=== PATIENT | male | born 1940 | race Caucasian/White ===

== ENCOUNTER 2020-02-03 10:50 | Outpatient (CLI) | payer MEDICARE, SELFPAY ==
[2020-02-03 12:30] LABS: Hemoglobin A1C 5.1 % (<5.7)
[2020-02-03 14:42] LABS: Thyroid Stimulating Hormone Reflex 0.663 uIU/mL (0.465-4.68)
[2020-02-08 09:32] LABS: Testosterone Total 490 ng/dL (250-1100)
== END 2020-02-03 10:51 | disposition home or self-care (01) ==
DX: R53.83 Other fatigue (principal); E03.9 Hypothyroidism, unspecified; R73.09 Other abnormal glucose
CPT/HCPCS: 36415; 83036; 84403; 84443

== ENCOUNTER 2020-03-20 09:43 | Outpatient (CLI) | payer MEDICARE, SELFPAY ==
[2020-03-20 10:55] LABS: Basophils Percent Auto 0.4 % (0.2-1.2); Eosinophils Absolute Auto 0.1 K/mm3 (0-0.3); Eosinophils Percent Auto 2.6 % (0-4.4); Hemoglobin 11.7 g/dL (14.0-18.0); Immature Granulocyte Absolute 0.02 K/mm3 (0.00-0.031); Immature Granulocyte Percent A 0.4 % (0-0.5); Lymphocytes Absolute Auto 1.54 K/mm3 (0.9-3.2); Lymphocytes Percent Auto 28.1 % (18.3-44.2); Mean Corpuscular HGB Conc 34.4 g/dl (32-36); Mean Corpuscular Hemoglobin 36.8 pg (26-34); Mean Corpuscular Volume 106.9 fl (80-100); Monocytes Absolute Auto 0.5 K/mm3 (0.1-0.6); Monocytes Percent Auto 8.9 % (2.6-8.5); Neutrophils Absolute Auto 3.3 K/mm3 (1.3-6.7); Neutrophils Percent Auto 59.6 % (45.5-73.1); Platelet Count Result 145 k/mm3 (150-375); Red Blood Count 3.18 M/mm3 (4.6-6.20); Red Cell Distribution Width 11.9 % (11.5-14.5); White Blood Count 5.5 K/mm3 (4.5-10.0)
[2020-03-20 11:11] LABS: Alanine Aminotransferase 13 U/L (4-50); Albumin Level 3.8 g/dL (3.5-5.1); Alkaline Phosphatase 52 U/L (38-126); Anion Gap 7 mmol/L (8-16); Aspartate Amino Transferase 22 U/L (17-59); Bilirubin,Total 0.8 mg/dL (0.2-1.3); Blood Urea Nitrogen 13 mg/dL (9-20); Carbon Dioxide 30 mmol/L (22-30); Chloride 101 mmol/L (98-107); Cholesterol 99 mg/dL (0-200); Estimated Glomerular Filt Rate > 60; Glucose 92 mg/dL (75-110); HDL Direct 41 mg/dL; Potassium 4.3 mmol/L (3.4-5.0); Sodium 138 mmol/L (137-145); Triglycerides 59 mg/dL (<150)
[2020-03-20 11:22] LABS: LDL Cholesterol Direct 48 mg/dL
== END 2020-03-20 09:44 | disposition home or self-care (01) ==
LOC: ANHLAB 09:49
DX: I10 Essential (primary) hypertension (principal)
CPT/HCPCS: 36415; 80053; 80061; 85025

== ENCOUNTER 2020-04-19 11:12 | Outpatient (CLI) | payer MEDICARE, SELFPAY ==
[2020-04-19 12:42] LABS: Free T4 Free Thyroxine 1.47 ng/mL (0.78-2.19)
== END 2020-04-19 11:13 | disposition home or self-care (01) ==
LOC: ANHLAB 11:16
PROVIDERS: Visit Provider Internal Medicine Endocrinology, Diabetes & Metabolism
DX: E89.0 Postprocedural hypothyroidism (principal)
CPT/HCPCS: 36415; 84439; 84443; 84481; 85025

== ENCOUNTER 2020-04-19 11:17 | Outpatient (CLI) | payer MEDICARE, SELFPAY ==
[2020-04-19 11:50] LABS: Basophils Percent Auto 0.4 % (0.2-1.2); Eosinophils Absolute Auto 0.1 K/mm3 (0-0.3); Eosinophils Percent Auto 1.5 % (0-4.4); Hematocrit 38.3 % (42.0-52.0); Hemoglobin 12.8 g/dL (14.0-18.0); Immature Granulocyte Absolute 0.01 K/mm3 (0.00-0.031); Immature Granulocyte Percent A 0.2 % (0-0.5); Lymphocytes Percent Auto 29.9 % (18.3-44.2); Mean Corpuscular HGB Conc 33.4 g/dl (32-36); Mean Corpuscular Hemoglobin 36.1 pg (26-34); Mean Corpuscular Volume 107.9 fl (80-100); Mean Platelet Volume 8.5 fl (7.4-10.4); Monocytes Absolute Auto 0.6 K/mm3 (0.1-0.6); Monocytes Percent Auto 12.4 % (2.6-8.5); Neutrophils Absolute Auto 2.6 K/mm3 (1.3-6.7); Neutrophils Percent Auto 55.6 % (45.5-73.1); Platelet Count Result 139 k/mm3 (150-375); Red Blood Count 3.55 M/mm3 (4.6-6.20); Red Cell Distribution Width 12.5 % (11.5-14.5); White Blood Count 4.7 K/mm3 (4.5-10.0)
== END 2020-04-19 11:18 | disposition home or self-care (01) ==
LOC: ANHLAB 11:21
DX: D75.89 Other specified diseases of blood and blood-forming organs (principal)
CPT/HCPCS: 36415; 85025

== ENCOUNTER 2020-09-25 10:27 | Outpatient (CLI) | payer MEDICARE, SELFPAY ==
[2020-09-25 12:06] LABS: Free T4 Free Thyroxine 1.15 ng/mL (0.78-2.19)
[2020-09-29 06:11] LABS: Thyroglobulin <0.1 ng/mL (2.8-40.9); Thyroglobulin Antibodies <1 IU/mL (<=1)
[2020-09-29 07:59] LABS: Triiodothyronine T3 Free 2.6 pg/mL (2.3-4.2)
== END 2020-09-25 10:28 | disposition home or self-care (01) ==
DX: E89.0 Postprocedural hypothyroidism (principal)
CPT/HCPCS: 36415; 84432; 84439; 84443; 84481; 86800

== ENCOUNTER 2020-10-31 10:11 | Outpatient (CLI) | payer MEDICARE, SELFPAY ==
[2020-10-31 12:04] LABS: Hepatitis C Virus Antibody Negative (Negative)
== END 2020-10-31 10:12 | disposition home or self-care (01) ==
DX: Z11.59 Encounter for screening for other viral diseases (principal)
CPT/HCPCS: 36415; 86803

== ENCOUNTER 2020-11-12 15:43 | Outpatient (CLI) | payer MEDICARE, SELFPAY ==
[2020-11-12 16:26] LABS: Alanine Aminotransferase 12 U/L (4-50); Albumin Level 3.9 g/dL (3.5-5.1); Alkaline Phosphatase 51 U/L (38-126); Anion Gap 10 mmol/L (8-16); Aspartate Amino Transferase 24 U/L (17-59); Blood Urea Nitrogen 12 mg/dL (9-20); Calcium 9.1 mg/dL (8.4-10.2); Carbon Dioxide 25 mmol/L (22-30); Chloride 102 mmol/L (98-107); Estimated Glomerular Filt Rate > 60; Glucose 93 mg/dL (75-110); Potassium 4.1 mmol/L (3.4-5.0); Sodium 137 mmol/L (137-145)
[2020-11-12 16:57] LABS: Thyroid Stimulating Hormone 0.163 uIU/mL (0.465-4.680)
[2020-11-12 17:16] LABS: Free T4 Free Thyroxine 1.61 ng/mL (0.78-2.19)
[2020-11-14 02:33] LABS: Thyroglobulin <0.1 ng/mL (2.8-40.9); Thyroglobulin Antibodies <1 IU/mL (<=1)
== END 2020-11-12 15:44 | disposition home or self-care (01) ==
PROVIDERS: Visit Provider Internal Medicine Endocrinology, Diabetes & Metabolism
DX: E89.0 Postprocedural hypothyroidism (principal)
CPT/HCPCS: 36415; 80053; 84432; 84439; 84443; 84481; 86800

== ENCOUNTER 2020-11-23 10:57 | Outpatient (CLI) | payer MEDICARE, SELFPAY ==
[2020-11-23 11:15] LABS: Basophils Percent Auto 0.5 % (0.2-1.2); Eosinophils Absolute Auto 0.1 K/mm3 (0-0.3); Eosinophils Percent Auto 2.1 % (0-4.4); Hemoglobin 12.9 g/dL (14.0-18.0); Immature Granulocyte Absolute 0.01 K/mm3 (0.00-0.031); Immature Granulocyte Percent A 0.2 % (0-0.5); Lymphocytes Absolute Auto 1.54 K/mm3 (0.9-3.2); Lymphocytes Percent Auto 36.4 % (18.3-44.2); Mean Corpuscular HGB Conc 33.1 g/dl (32-36); Mean Corpuscular Hemoglobin 35.9 pg (26-34); Mean Corpuscular Volume 108.6 fl (80-100); Mean Platelet Volume 8.5 fl (7.4-10.4); Monocytes Absolute Auto 0.4 K/mm3 (0.1-0.6); Monocytes Percent Auto 9.7 % (2.6-8.5); Neutrophils Absolute Auto 2.2 K/mm3 (1.3-6.7); Neutrophils Percent Auto 51.1 % (45.5-73.1); Platelet Count Result 139 k/mm3 (150-375); Red Blood Count 3.59 M/mm3 (4.6-6.20); Red Cell Distribution Width 11.9 % (11.5-14.5); White Blood Count 4.2 K/mm3 (4.5-10.0)
[2020-11-23 11:28] LABS: Alanine Aminotransferase 11 U/L (4-50); Albumin Level 3.9 g/dL (3.5-5.1); Alkaline Phosphatase 53 U/L (38-126); Anion Gap 6 mmol/L (8-16); Aspartate Amino Transferase 23 U/L (17-59); Bilirubin,Total 0.9 mg/dL (0.2-1.3); Blood Urea Nitrogen 9 mg/dL (9-20); Calcium 9.3 mg/dL (8.4-10.2); Carbon Dioxide 28 mmol/L (22-30); Chloride 102 mmol/L (98-107); Cholesterol 128 mg/dL (0-200); Estimated Glomerular Filt Rate > 60; Glucose 94 mg/dL (75-110); HDL Direct 54 mg/dL; Potassium 4.3 mmol/L (3.4-5.0); Sodium 136 mmol/L (137-145); Triglycerides 66 mg/dL (<150)
[2020-11-23 11:39] LABS: LDL Cholesterol Direct 54 mg/dL
== END 2020-11-23 10:58 | disposition home or self-care (01) ==
LOC: ANHLAB 11:01
PROVIDERS: Visit Provider Internal Medicine Interventional Cardiology
DX: I25.810 Atherosclerosis of coronary artery bypass graft(s) without angina pectoris (principal); I10 Essential (primary) hypertension; D75.89 Other specified diseases of blood and blood-forming organs
CPT/HCPCS: 36415; 80053; 80061; 85025

== ENCOUNTER 2020-12-22 13:50 | Outpatient (CLI) | payer MEDICARE, SELFPAY ==
--- NOTE | ~2020-12-22 | MR_ITS ---
EXAMINATION: MR cervical spine wo con EXAM DATE: 12/22/2020 14:56 INDICATION: Neck pain, balance disorder, numbness in legs bilaterally. Arm weakness. TECHNIQUE: Multi-sequential, multiplanar MR images of the cervical spine were obtained without contra st. Axial T2, axial T2 MERGE sequence. Sagittal T1, T2, T2 fat saturation images also obtained. Th ere is no prior study for comparison. FINDINGS: Moderate to severe loss of the disc height from C3 through C6. The spinal cord signal inte nsity and intrinsic morphology is normal. Cervicomedullary junction is normal in appearance. There is 2 to 3 mm anterolisthesis C7 on T1. 2 mm retrolisthesis C3 on C4. There are no focal marrow signal a bnormalities suspicious for malignancy or acute fracture. Paraspinal soft tissue is unremarkable. Level by level evaluation: C2-C3: Disc does not extend beyond the endplate margin. Uncovertebral joint arthropathy: None. Facet joint arthropathy: Mild to moderate left, mild right. Neural foraminal stenosis: Mild left. Central canal stenosis: No stenosis. C3-C4: There is a mild diffuse disc bulge. Uncovertebral joint arthropathy: Moderate bilateral. Facet joint arthropathy: Moderate right, mild to moderate left. Neural foraminal stenosis: Moderate bilateral. Central canal stenosis: Mild . Central canal measures 7 mm in mid sagittal AP diameter . C4-C5: Disc does not extend beyond the endplate margin. Uncovertebral joint arthropathy: None. Facet joint arthropathy: None. Neural foraminal stenosis: No stenosis. Central canal stenosis: Mild to moderate. Central canal measures 6-7 mm in mid sagittal AP diameter . C5-C6: There is a minimal diffuse disc bulge. Uncovertebral joint arthropathy: Moderate to severe right, moderate left. Facet joint arthropathy: Moderate right, mild to moderate left. Neural foraminal stenosis: Moderate to severe right, moderate left. Central canal stenosis: Minimal. C6-C7: There is a mild diffuse disc bulge. Uncovertebral joint arthropathy: Moderate bilateral. Facet joint arthropathy: Mild to moderate bilateral. Neural foraminal stenosis: Mild to moderate bilateral. Central canal stenosis: Mild. C7-T1: There is a mild diffuse disc bulge. Uncovertebral joint arthropathy: Moderate bilateral. Facet joint arthropathy: Moderate bilateral. Neural foraminal stenosis: Moderate right, mild to moderate left. Central canal stenosis: Mild. IMPRESSION: 1. Some advanced cervical spondylosis, some scattered significant neural foraminal stenosis. 2. Normal cervical cord signal. Reviewed, dictated and finalized at location A. IMPRESSION: 1. Some advanced cervical spondylosis, some scattered significant neural agapito inal stenosis. 2. Normal cervical cord signal.
== END 2020-12-22 13:51 | disposition home or self-care (01) ==
LOC: ANHIMG 13:51
DX: R26.89 Other abnormalities of gait and mobility (principal); R20.0 Anesthesia of skin; R29.898 Other symptoms and signs involving the musculoskeletal system; M47.892 Other spondylosis, cervical region
CPT/HCPCS: 72141

== ENCOUNTER 2020-12-25 08:45 | Outpatient (CLI) | payer MEDICARE, SELFPAY ==
--- NOTE | ~2020-12-25 | CT_ITS ---
EXAMINATION: CT diagnostic chest wo con DATE: 12/25/2020 09:39 INDICATION: Lung nodule TECHNIQUE: Computed tomography (CT) of the chest was performed without intravenous contrast. The dose -length product (DLP) was 94.64 mGy-cm. Automated exposure control and iterative reconstruction techn ique were employed. COMPARISON: 02/05/2018 FINDINGS: There is mild emphysema. There are stable nodules of the right lower lobe which measure 12 mm, 4 mm, and 12 mm on images 51, 50 to, and 61, respectively. No new pulmonary nodule is identified. There is mild atelectasis. No focal consolidation is identified. There is no pleural effusion or pne umothorax. Changes of coronary artery bypass grafting are noted. There are no pathologically enlarged thoracic lymph nodes. The heart size is normal. There is severe thoracic spondylosis. Scarring is se en in the left kidney. IMPRESSION: 1. Stable right lung nodules, most likely old granulomatous disease given interval stability. Reviewed, dictated and finalized at location B. IMPRESSION: 1. Stable right lung nodules, most likely old granulomatous disease given inter magdalena stability.
== END 2020-12-25 08:46 | disposition home or self-care (01) ==
DX: R91.8 Other nonspecific abnormal finding of lung field (principal)
CPT/HCPCS: 71250

== ENCOUNTER 2021-02-13 12:26 | Outpatient (CLI) | payer MEDICARE, SELFPAY ==
[2021-02-13 13:35] LABS: Alanine Aminotransferase 12 U/L (4-50); Alkaline Phosphatase 53 U/L (38-126); Anion Gap 6 mmol/L (8-16); Aspartate Amino Transferase 25 U/L (17-59); Bilirubin,Total 0.9 mg/dL (0.2-1.3); Blood Urea Nitrogen 13 mg/dL (9-20); Calcium 9.1 mg/dL (8.4-10.2); Carbon Dioxide 28 mmol/L (22-30); Chloride 102 mmol/L (98-107); Estimated Glomerular Filt Rate > 60; Glucose 94 mg/dL (65-110); Potassium 4.6 mmol/L (3.4-5.0); Sodium 136 mmol/L (137-145)
[2021-02-13 14:59] LABS: Free T4 Free Thyroxine 1.43 ng/mL (0.78-2.19)
[2021-02-16 12:59] LABS: Triiodothyronine T3 Free 2.6 pg/mL (2.3-4.2)
== END 2021-02-13 12:27 | disposition home or self-care (01) ==
LOC: ANHLAB 12:28
PROVIDERS: Visit Provider Internal Medicine Endocrinology, Diabetes & Metabolism
DX: E89.0 Postprocedural hypothyroidism (principal)
CPT/HCPCS: 36415; 80053; 84439; 84443; 84481

== ENCOUNTER 2021-03-18 11:48 | Outpatient (CLI) | payer MEDICARE, SELFPAY ==
[2021-03-18 12:16] LABS: Basophils Percent Auto 0.4 % (0.2-1.2); Eosinophils Absolute Auto 0.2 K/mm3 (0-0.3); Eosinophils Percent Auto 3.5 % (0-4.4); Hematocrit 37.5 % (42.0-52.0); Hemoglobin 12.5 g/dL (14.0-18.0); Immature Granulocyte Absolute 0.01 K/mm3 (0.00-0.031); Immature Granulocyte Percent A 0.2 % (0-0.5); Lymphocytes Absolute Auto 1.79 K/mm3 (0.9-3.2); Lymphocytes Percent Auto 39.1 % (18.3-44.2); Mean Corpuscular HGB Conc 33.3 g/dl (32-36); Mean Corpuscular Hemoglobin 36.9 pg (26-34); Mean Corpuscular Volume 110.6 fl (80-100); Mean Platelet Volume 8.9 fl (7.4-10.4); Monocytes Absolute Auto 0.5 K/mm3 (0.1-0.6); Monocytes Percent Auto 11.6 % (2.6-8.5); Neutrophils Absolute Auto 2.1 K/mm3 (1.3-6.7); Neutrophils Percent Auto 45.2 % (45.5-73.1); Platelet Count Result 128 k/mm3 (150-375); Red Blood Count 3.39 M/mm3 (4.6-6.20); Red Cell Distribution Width 13.1 % (11.5-14.5); White Blood Count 4.6 K/mm3 (4.5-10.0)
[2021-03-18 13:28] LABS: Alanine Aminotransferase 11 U/L (4-50); Albumin Level 3.9 g/dL (3.5-5.1); Alkaline Phosphatase 46 U/L (38-126); Anion Gap 8 mmol/L (8-16); Aspartate Amino Transferase 24 U/L (17-59); Bilirubin,Total 1.1 mg/dL (0.2-1.3); Blood Urea Nitrogen 12 mg/dL (9-20); Calcium 8.5 mg/dL (8.4-10.2); Carbon Dioxide 26 mmol/L (22-30); Chloride 101 mmol/L (98-107); Cholesterol 129 mg/dL (0-200); Estimated Glomerular Filt Rate > 60; Glucose 90 mg/dL (65-110); HDL Direct 56 mg/dL; Potassium 4.1 mmol/L (3.4-5.0); Sodium 135 mmol/L (137-145); Triglycerides 58 mg/dL (<150)
[2021-03-18 13:38] LABS: LDL Cholesterol Direct 60 mg/dL
== END 2021-03-18 11:49 | disposition home or self-care (01) ==
PROVIDERS: Visit Provider Internal Medicine Interventional Cardiology
DX: I25.810 Atherosclerosis of coronary artery bypass graft(s) without angina pectoris (principal); D75.89 Other specified diseases of blood and blood-forming organs; I10 Essential (primary) hypertension
CPT/HCPCS: 36415; 80053; 80061; 85025

== ENCOUNTER 2021-04-17 15:21 | Outpatient (CLI) | payer MEDICARE, SELFPAY ==
--- NOTE | ~2021-04-17 | US_ITS ---
EXAMINATION: US thyroid DATE: 04/17/2021 15:53 INDICATION: Postop hypothyroidism. TECHNIQUE: Multiple ultrasound images of the thyroid were obtained. COMPARISON: Ultrasound 12/31/2018, chest CT 12/25/2020 FINDINGS: There are changes of total thyroidectomy. There is no abnormal tissue in the thyroidectomy bed. IMPRESSION: 1. Total thyroidectomy. Reviewed, dictated and finalized at location A. IMPRESSION: 1. Total thyroidectomy.
[2021-04-17 16:42] LABS: Alanine Aminotransferase 11 U/L (4-50); Albumin Level 4.4 g/dL (3.5-5.1); Alkaline Phosphatase 62 U/L (38-126); Anion Gap 10 mmol/L (8-16); Aspartate Amino Transferase 22 U/L (17-59); Bilirubin,Total 1.2 mg/dL (0.2-1.3); Blood Urea Nitrogen 12 mg/dL (9-20); Calcium 9.2 mg/dL (8.4-10.2); Carbon Dioxide 27 mmol/L (22-30); Chloride 99 mmol/L (98-107); Estimated Glomerular Filt Rate > 60; Glucose 80 mg/dL (65-110); Potassium 4.2 mmol/L (3.4-5.0); Sodium 136 mmol/L (137-145)
[2021-04-17 16:58] LABS: Free T4 Free Thyroxine 1.61 ng/mL (0.78-2.19)
[2021-04-20 01:40] LABS: Thyroglobulin <0.1 ng/mL (2.8-40.9); Thyroglobulin Antibodies <1 IU/mL (<=1)
== END 2021-04-17 15:22 | disposition home or self-care (01) ==
LOC: ANHIMG 15:24
PROVIDERS: Visit Provider Internal Medicine Endocrinology, Diabetes & Metabolism
DX: E89.0 Postprocedural hypothyroidism (principal)
CPT/HCPCS: 36415; 76536; 80053; 84432; 84439; 84443; 86800

== ENCOUNTER 2021-04-24 09:11 | Outpatient (CLI) | payer MEDICARE, SELFPAY ==
[2021-04-24 10:01] LABS: Anion Gap 6 mmol/L (8-16); Blood Urea Nitrogen 12 mg/dL (9-20); Calcium 8.9 mg/dL (8.4-10.2); Carbon Dioxide 27 mmol/L (22-30); Chloride 96 mmol/L (98-107); Estimated Glomerular Filt Rate > 60; Glucose 95 mg/dL (65-110); Potassium 4.5 mmol/L (3.4-5.0); Sodium 129 mmol/L (137-145)
== END 2021-04-24 09:12 | disposition home or self-care (01) ==
LOC: ANHLAB 09:13
PROVIDERS: Visit Provider Internal Medicine Interventional Cardiology
DX: I10 Essential (primary) hypertension (principal)
CPT/HCPCS: 36415; 80048

== ENCOUNTER 2021-10-14 09:45 | Outpatient (CLI) | payer MEDICARE, SELFPAY ==
[2021-10-14 10:07] LABS: Basophils Percent Auto 0.5 % (0.2-1.2); Eosinophils Absolute Auto 0.1 K/mm3 (0-0.3); Eosinophils Percent Auto 1.8 % (0-4.4); Hematocrit 37.7 % (42.0-52.0); Hemoglobin 12.6 g/dL (14.0-18.0); Lymphocytes Absolute Auto 1.39 K/mm3 (0.9-3.2); Mean Corpuscular HGB Conc 33.4 g/dl (32-36); Mean Corpuscular Hemoglobin 36.5 pg (26-34); Mean Corpuscular Volume 109.3 fl (80-100); Mean Platelet Volume 8.8 fl (7.4-10.4); Monocytes Absolute Auto 0.5 K/mm3 (0.1-0.6); Neutrophils Absolute Auto 2.4 K/mm3 (1.3-6.7); Neutrophils Percent Auto 54.7 % (45.5-73.1); Platelet Count Result 141 k/mm3 (150-375); Red Blood Count 3.45 M/mm3 (4.6-6.20); Red Cell Distribution Width 12.9 % (11.5-14.5); White Blood Count 4.4 K/mm3 (4.5-10.0)
[2021-10-14 10:37] LABS: Alanine Aminotransferase 11 U/L (6-50); Albumin Level 4.1 g/dL (3.5-5.1); Alkaline Phosphatase 50 U/L (38-126); Anion Gap 6 mmol/L (8-16); Aspartate Amino Transferase 26 U/L (17-59); Bilirubin,Total 0.9 mg/dL (0.2-1.3); Blood Urea Nitrogen 9 mg/dL (9-20); Calcium 8.7 mg/dL (8.4-10.2); Carbon Dioxide 28 mmol/L (22-30); Chloride 99 mmol/L (98-107); Cholesterol 133 mg/dL (0-200); Estimated Glomerular Filt Rate > 60; Glucose 94 mg/dL (65-110); HDL Direct 46 mg/dL; Potassium 3.9 mmol/L (3.4-5.0); Sodium 133 mmol/L (137-145); Triglycerides 81 mg/dL (<150)
[2021-10-14 10:48] LABS: LDL Cholesterol Direct 60 mg/dL
== END 2021-10-14 09:46 | disposition home or self-care (01) ==
LOC: ANHLAB 09:48
PROVIDERS: Visit Provider Internal Medicine Interventional Cardiology
DX: I25.810 Atherosclerosis of coronary artery bypass graft(s) without angina pectoris (principal)
CPT/HCPCS: 36415; 80053; 80061; 85025

== ENCOUNTER 2021-10-15 10:06 | Outpatient (CLI) | payer MEDICARE, SELFPAY ==
--- NOTE | ~2021-10-15 | XR_ITS ---
XR mandible min 4V DATE: 10/15/2021 10:37 INDICATION: Left jaw pain TECHNIQUE: 4 views COMPARISON: None FINDINGS: No fracture or dislocation. Normal alignment at the temporomandibular joints. Normally shap ed mandibular condyles. No bone destruction of the mandible is evident. IMPRESSION: Negative Reviewed, dictated and finalized at location B. IMPRESSION: Negative
== END 2021-10-15 10:07 | disposition home or self-care (01) ==
PROVIDERS: Visit Provider Internal Medicine Medical Oncology
DX: R68.84 Jaw pain (principal)
CPT/HCPCS: 70110

== ENCOUNTER 2021-10-22 12:22 | Outpatient (CLI) | payer MEDICARE, SELFPAY ==
[2021-10-22 13:06] LABS: Alanine Aminotransferase 11 U/L (6-50); Albumin Level 4.1 g/dL (3.5-5.1); Alkaline Phosphatase 51 U/L (38-126); Anion Gap 5 mmol/L (8-16); Aspartate Amino Transferase 21 U/L (17-59); Bilirubin,Total 1.2 mg/dL (0.2-1.3); Blood Urea Nitrogen 9 mg/dL (9-20); Calcium 8.7 mg/dL (8.4-10.2); Carbon Dioxide 28 mmol/L (22-30); Chloride 98 mmol/L (98-107); Estimated Glomerular Filt Rate > 60; Glucose 91 mg/dL (65-110); Potassium 4.5 mmol/L (3.4-5.0); Sodium 131 mmol/L (137-145)
[2021-10-22 13:21] LABS: Free T4 Free Thyroxine 1.62 ng/mL (0.78-2.19)
[2021-10-24 05:19] LABS: Triiodothyronine T3 Free 2.6 pg/mL (2.3-4.2)
[2021-10-24 20:19] LABS: Thyroglobulin <0.1 ng/mL (2.8-40.9); Thyroglobulin Antibodies <1 IU/mL (<=1)
== END 2021-10-22 12:23 | disposition home or self-care (01) ==
PROVIDERS: Visit Provider Internal Medicine Endocrinology, Diabetes & Metabolism
DX: E89.0 Postprocedural hypothyroidism (principal)
CPT/HCPCS: 36415; 80053; 84432; 84439; 84443; 84481; 86800

== ENCOUNTER 2022-01-21 16:44 | Outpatient (CLI) | payer MEDICARE, SELFPAY ==
[2022-01-21 17:36] LABS: Alanine Aminotransferase 13 U/L (6-50); Albumin Level 4.4 g/dL (3.5-5.1); Alkaline Phosphatase 54 U/L (38-126); Anion Gap 8 mmol/L (8-16); Aspartate Amino Transferase 28 U/L (17-59); Bilirubin,Total 0.9 mg/dL (0.2-1.3); Blood Urea Nitrogen 17 mg/dL (9-20); Calcium 8.7 mg/dL (8.4-10.2); Carbon Dioxide 27 mmol/L (22-30); Chloride 98 mmol/L (98-107); Estimated Glomerular Filt Rate > 60; Glucose 95 mg/dL (65-110); Potassium 4.2 mmol/L (3.4-5.0); Sodium 133 mmol/L (137-145)
[2022-01-21 17:51] LABS: Free T4 Free Thyroxine 1.38 ng/mL (0.78-2.19)
[2022-01-24 04:11] LABS: Thyroglobulin <0.1 ng/mL (2.8-40.9); Thyroglobulin Antibodies <1 IU/mL (<=1)
[2022-01-25 06:42] LABS: Triiodothyronine T3 Free 2.4 pg/mL (2.3-4.2)
== END 2022-01-21 16:45 | disposition home or self-care (01) ==
PROVIDERS: Referring Provider Internal Medicine Endocrinology, Diabetes & Metabolism; Visit Provider Internal Medicine Interventional Cardiology
DX: E89.0 Postprocedural hypothyroidism (principal); I10 Essential (primary) hypertension
CPT/HCPCS: 36415; 80053; 84432; 84439; 84443; 84481; 86800

== ENCOUNTER 2022-03-21 09:06 | Outpatient (CLI) | payer MEDICARE, SELFPAY ==
[2022-03-21 09:47] LABS: Basophils Percent Auto 0.5 % (0.2-1.2); Eosinophils Absolute Auto 0.1 K/mm3 (0-0.3); Eosinophils Percent Auto 2.3 % (0-4.4); Hematocrit 35.9 % (42.0-52.0); Immature Granulocyte Absolute 0.01 K/mm3 (0.00-0.031); Immature Granulocyte Percent A 0.3 % (0-0.5); Lymphocytes Absolute Auto 1.28 K/mm3 (0.9-3.2); Lymphocytes Percent Auto 33.2 % (18.3-44.2); Mean Corpuscular HGB Conc 33.4 g/dl (32-36); Mean Corpuscular Hemoglobin 37.7 pg (26-34); Mean Corpuscular Volume 112.9 fl (80-100); Mean Platelet Volume 8.8 fl (7.4-10.4); Monocytes Absolute Auto 0.4 K/mm3 (0.1-0.6); Monocytes Percent Auto 11.4 % (2.6-8.5); Neutrophils Percent Auto 52.3 % (45.5-73.1); Platelet Count Result 169 k/mm3 (150-375); Red Blood Count 3.18 M/mm3 (4.6-6.20); Red Cell Distribution Width 13.2 % (11.5-14.5); White Blood Count 3.9 K/mm3 (4.5-10.0)
[2022-03-21 09:50] LABS: Alanine Aminotransferase 13 U/L (6-50); Albumin Level 3.9 g/dL (3.5-5.1); Alkaline Phosphatase 48 U/L (38-126); Anion Gap 9 mmol/L (8-16); Aspartate Amino Transferase 20 U/L (17-59); Bilirubin,Total 0.7 mg/dL (0.2-1.3); Blood Urea Nitrogen 10 mg/dL (9-20); Calcium 8.5 mg/dL (8.4-10.2); Carbon Dioxide 29 mmol/L (22-30); Chloride 98 mmol/L (98-107); Cholesterol 138 mg/dL (0-200); Estimated Glomerular Filt Rate > 60; Glucose 102 mg/dL (65-110); HDL Direct 62 mg/dL; Sodium 136 mmol/L (137-145); Triglycerides 52 mg/dL (<150)
[2022-03-21 10:01] LABS: LDL Cholesterol Direct 63 mg/dL
== END 2022-03-21 09:07 | disposition home or self-care (01) ==
PROVIDERS: Visit Provider Internal Medicine Interventional Cardiology
DX: D61.818 Other pancytopenia (principal); E78.00 Pure hypercholesterolemia, unspecified; I10 Essential (primary) hypertension
CPT/HCPCS: 36415; 80053; 80061; 85025

== ENCOUNTER 2022-04-07 08:47 | Outpatient (CLI) | payer MEDICARE, SELFPAY ==
[2022-04-07 09:09] LABS: Anion Gap 11 mmol/L (8-16); Blood Urea Nitrogen 15 mg/dL (9-20); Calcium 8.6 mg/dL (8.4-10.2); Carbon Dioxide 28 mmol/L (22-30); Chloride 96 mmol/L (98-107); Estimated Glomerular Filt Rate > 60; Glucose 98 mg/dL (65-110); Potassium 4.5 mmol/L (3.4-5.0); Sodium 135 mmol/L (137-145)
== END 2022-04-07 08:48 | disposition home or self-care (01) ==
PROVIDERS: Visit Provider Internal Medicine Interventional Cardiology
DX: R60.0 Localized edema (principal); I10 Essential (primary) hypertension
CPT/HCPCS: 36415; 80048

== ENCOUNTER 2022-09-23 11:36 | Outpatient (CLI) | payer MEDICARE, SELFPAY ==
[2022-09-23 12:00] LABS: Basophils Percent Auto 0.3 % (0.2-1.2); Eosinophils Absolute Auto 0.1 K/mm3 (0-0.3); Eosinophils Percent Auto 2.2 % (0-4.4); Hematocrit 39.3 % (42.0-52.0); Hemoglobin 12.8 g/dL (14.0-18.0); Immature Granulocyte Absolute 0.02 K/mm3 (0.00-0.031); Immature Granulocyte Percent A 0.3 % (0-0.5); Lymphocytes Absolute Auto 1.91 K/mm3 (0.9-3.2); Lymphocytes Percent Auto 30.4 % (18.3-44.2); Mean Corpuscular HGB Conc 32.6 g/dl (32-36); Mean Corpuscular Hemoglobin 35.8 pg (26-34); Mean Corpuscular Volume 109.8 fl (80-100); Mean Platelet Volume 8.7 fl (7.4-10.4); Monocytes Absolute Auto 0.6 K/mm3 (0.1-0.6); Monocytes Percent Auto 8.8 % (2.6-8.5); Neutrophils Absolute Auto 3.6 K/mm3 (1.3-6.7); Platelet Count Result 159 k/mm3 (150-375); Red Blood Count 3.58 M/mm3 (4.6-6.20); Red Cell Distribution Width 13.2 % (11.5-14.5); White Blood Count 6.3 K/mm3 (4.5-10.0)
[2022-09-23 12:14] LABS: Alanine Aminotransferase 16 U/L (6-50); Albumin Level 4.3 g/dL (3.5-5.1); Alkaline Phosphatase 57 U/L (38-126); Anion Gap 5 mmol/L (8-16); Aspartate Amino Transferase 24 U/L (17-59); Bilirubin,Total 0.9 mg/dL (0.2-1.3); Blood Urea Nitrogen 15 mg/dL (9-20); Calcium 9.2 mg/dL (8.4-10.2); Carbon Dioxide 33 mmol/L (22-30); Chloride 96 mmol/L (98-107); Cholesterol 155 mg/dL (0-200); Estimated Glomerular Filt Rate > 60; Glucose 96 mg/dL (65-110); HDL Direct 52 mg/dL; Potassium 4.3 mmol/L (3.4-5.0); Sodium 134 mmol/L (137-145); Triglycerides 106 mg/dL (<150)
[2022-09-23 12:25] LABS: LDL Cholesterol Direct 74 mg/dL
[2022-09-23 12:49] LABS: Anisocytosis 1+ (NORMAL); Macrocytosis 1+ (NORMAL); Platelet Estimate Adequate (Adequate); Schistocytes None Seen (NORMAL)
== END 2022-09-23 11:37 | disposition home or self-care (01) ==
PROVIDERS: Visit Provider Internal Medicine Interventional Cardiology
DX: R60.0 Localized edema (principal); I10 Essential (primary) hypertension
CPT/HCPCS: 36415; 80053; 80061; 85025

== ENCOUNTER 2023-02-06 08:40 | Outpatient (CLI) | payer MEDICARE, SELFPAY ==
[2023-02-06 10:07] LABS: LDL Cholesterol Direct 76 mg/dL
[2023-02-06 10:44] LABS: Alanine Aminotransferase 15 U/L (6-50); Albumin Level 4.1 g/dL (3.5-5.1); Alkaline Phosphatase 43 U/L (38-126); Anion Gap 5 mmol/L (8-16); Aspartate Amino Transferase 22 U/L (17-59); Bilirubin,Total 0.7 mg/dL (0.2-1.3); Blood Urea Nitrogen 17 mg/dL (9-20); Calcium 9.2 mg/dL (8.4-10.2); Carbon Dioxide 32 mmol/L (22-30); Chloride 97 mmol/L (98-107); Cholesterol 163 mg/dL (0-200); Estimated Glomerular Filt Rate > 60; Glucose 97 mg/dL (65-110); HDL Direct 64 mg/dL; Potassium 4.5 mmol/L (3.4-5.0); Sodium 134 mmol/L (137-145); Triglycerides 88 mg/dL (<150)
[2023-02-06 11:20] LABS: Creatine Kinase 37 U/L (55-170)
== END 2023-02-06 08:41 | disposition home or self-care (01) ==
PROVIDERS: Visit Provider Internal Medicine Interventional Cardiology
DX: E78.00 Pure hypercholesterolemia, unspecified (principal); I10 Essential (primary) hypertension
CPT/HCPCS: 36415; 80053; 80061; 82550

== ENCOUNTER 2023-03-13 10:26 | Outpatient (CLI) | payer MEDICARE, SELFPAY ==
[2023-03-13 11:13] LABS: Anion Gap 5 mmol/L (8-16); Blood Urea Nitrogen 21 mg/dL (9-20); Calcium 8.6 mg/dL (8.4-10.2); Carbon Dioxide 28 mmol/L (22-30); Chloride 104 mmol/L (98-107); Estimated Glomerular Filt Rate > 60; Glucose 64 mg/dL (65-110); Sodium 137 mmol/L (137-145)
== END 2023-03-13 10:27 | disposition home or self-care (01) ==
PROVIDERS: Visit Provider Internal Medicine Interventional Cardiology
DX: E87.1 Hypo-osmolality and hyponatremia (principal); I10 Essential (primary) hypertension
CPT/HCPCS: 36415; 80048

== ENCOUNTER 2023-04-09 11:46 | Outpatient (CLI) | payer MEDICARE, SELFPAY | END 2023-04-09 11:47 | disposition home or self-care (01) | PROVIDERS: Visit Provider Family Medicine | DX: E89.0 Postprocedural hypothyroidism (principal) | CPT/HCPCS: 36415; 84443 ==

== ENCOUNTER 2023-09-19 09:58 | Outpatient (CLI) | payer MEDICARE, SELFPAY ==
[2023-09-19 10:37] LABS: Basophils Percent Auto 0.6 % (0.2-1.2); Eosinophils Absolute Auto 0.1 K/mm3 (0-0.3); Eosinophils Percent Auto 1.7 % (0-4.4); Hematocrit 36.2 % (42.0-52.0); Hemoglobin 12.1 g/dL (14.0-18.0); Immature Granulocyte Absolute 0.02 K/mm3 (0.00-0.031); Immature Granulocyte Percent A 0.4 % (0-0.5); Lymphocytes Absolute Auto 1.39 K/mm3 (0.9-3.2); Lymphocytes Percent Auto 25.8 % (18.3-44.2); Mean Corpuscular HGB Conc 33.4 g/dl (32-36); Mean Corpuscular Hemoglobin 35.9 pg (26-34); Mean Corpuscular Volume 107.4 fl (80-100); Mean Platelet Volume 8.8 fl (7.4-10.4); Monocytes Absolute Auto 0.5 K/mm3 (0.1-0.6); Monocytes Percent Auto 8.6 % (2.6-8.5); Neutrophils Absolute Auto 3.4 K/mm3 (1.3-6.7); Neutrophils Percent Auto 62.9 % (45.5-73.1); Platelet Count Result 137 k/mm3 (150-375); Red Blood Count 3.37 M/mm3 (4.6-6.20); Red Cell Distribution Width 13.2 % (11.5-14.5); White Blood Count 5.4 K/mm3 (4.5-10.0)
[2023-09-19 10:52] LABS: Alanine Aminotransferase 11 U/L (6-50); Albumin Level 4.1 g/dL (3.5-5.1); Alkaline Phosphatase 50 U/L (38-126); Anion Gap 4 mmol/L (4-12); Aspartate Amino Transferase 20 U/L (17-59); Bilirubin,Total 1.1 mg/dL (0.2-1.3); Blood Urea Nitrogen 16 mg/dL (9-20); Calcium 9.2 mg/dL (8.4-10.2); Carbon Dioxide 28 mmol/L (22-30); Chloride 105 mmol/L (98-107); Cholesterol 145 mg/dL (0-200); Estimated Glomerular Filt Rate > 60; Glucose 94 mg/dL (65-110); HDL Direct 53 mg/dL; Phosphorus 3.3 mg/dL (2.5-4.5); Sodium 137 mmol/L (137-145); Triglycerides 76 mg/dL (<150)
[2023-09-19 11:03] LABS: LDL Cholesterol Direct 77 mg/dL
== END 2023-09-19 09:59 | disposition home or self-care (01) ==
LOC: ANHLAB 10:01
PROVIDERS: Visit Provider Internal Medicine Interventional Cardiology
DX: I10 Essential (primary) hypertension (principal); E87.1 Hypo-osmolality and hyponatremia; Z79.01 Long term (current) use of anticoagulants
CPT/HCPCS: 36415; 80053; 80061; 84100; 85025

== ENCOUNTER 2024-03-22 10:53 | Outpatient (CLI) | payer MEDICARE, SELFPAY ==
[2024-03-22 11:43] LABS: Hematocrit 37.4 % (42.0-52.0); Hemoglobin 12.6 g/dL (14.0-18.0); Mean Corpuscular HGB Conc 33.7 g/dl (32-36); Mean Corpuscular Hemoglobin 36.2 pg (26-34); Mean Corpuscular Volume 107.5 fl (80-100); Platelet Count Result 140 k/mm3 (150-375); Red Blood Count 3.48 M/mm3 (4.6-6.20); Red Cell Distribution Width 12.3 % (11.5-14.5); White Blood Count 4.8 K/mm3 (4.5-10.0)
[2024-03-22 11:56] LABS: Alanine Aminotransferase 11 U/L (6-50); Albumin Level 3.9 g/dL (3.5-5.1); Alkaline Phosphatase 46 U/L (38-126); Anion Gap 5 mmol/L (4-12); Aspartate Amino Transferase 21 U/L (17-59); Blood Urea Nitrogen 12 mg/dL (9-20); Calcium 8.9 mg/dL (8.4-10.2); Carbon Dioxide 30 mmol/L (22-30); Chloride 100 mmol/L (98-107); Cholesterol 139 mg/dL (0-200); Estimated Glomerular Filt Rate > 60; Glucose 90 mg/dL (65-110); HDL Direct 46 mg/dL; Potassium 4.5 mmol/L (3.4-5.0); Sodium 135 mmol/L (137-145); Triglycerides 85 mg/dL (<150)
[2024-03-22 12:08] LABS: LDL Cholesterol Direct 59 mg/dL
== END 2024-03-22 10:54 | disposition home or self-care (01) ==
LOC: ANHLAB 10:55
PROVIDERS: Visit Provider Internal Medicine Interventional Cardiology
DX: E78.00 Pure hypercholesterolemia, unspecified (principal); I10 Essential (primary) hypertension; Z79.02 Long term (current) use of antithrombotics/antiplatelets
CPT/HCPCS: 36415; 80053; 80061; 85027

== ENCOUNTER 2024-09-26 11:09 | Outpatient (CLI) | payer MEDICARE, SELFPAY ==
[2024-09-26 11:29] LABS: Hematocrit 38.2 % (42.0-52.0); Hemoglobin 12.1 g/dL (14.0-18.0); Mean Corpuscular HGB Conc 31.7 g/dl (32-36); Mean Corpuscular Hemoglobin 35.2 pg (26-34); Mean Platelet Volume 9.3 fl (7.4-10.4); Platelet Count Result 132 k/mm3 (150-375); Red Blood Count 3.44 M/mm3 (4.6-6.20); White Blood Count 4.7 K/mm3 (4.5-10.0)
[2024-09-26 11:43] LABS: Alanine Aminotransferase 14 U/L (6-50); Albumin Level 4.1 g/dL (3.5-5.1); Alkaline Phosphatase 51 U/L (38-126); Anion Gap 6 mmol/L (4-12); Aspartate Amino Transferase 23 U/L (17-59); Bilirubin,Total 1.1 mg/dL (0.2-1.3); Blood Urea Nitrogen 11 mg/dL (9-20); Calcium 8.9 mg/dL (8.4-10.2); Carbon Dioxide 29 mmol/L (22-30); Chloride 102 mmol/L (98-107); Cholesterol 146 mg/dL (0-200); Estimated Glomerular Filt Rate > 60; Glucose 94 mg/dL (65-110); HDL Direct 57 mg/dL; Potassium 4.4 mmol/L (3.4-5.0); Sodium 137 mmol/L (137-145); Triglycerides 92 mg/dL (<150)
[2024-09-26 11:54] LABS: LDL Cholesterol Direct 59 mg/dL
--- OUTSIDE RECORDS SUMMARY | 2024-09-26 12:59 | XMS_ITS | Encounter Summary ---
Author Organization [facility] Facility Care Team Providers Care Candy Attendant Name Role Phone Hai Cardoso MD Primary Care Provider + Calin Belle MD Unavailable [phone] Curt Zapien DO Unavailable [phone] Thi Lin RN Unavailable [phone] Encounter Details Date Type Department Care Team (Latest Contact Info) Description 12/25/2015 Orders Only [facility] CLINCONV Provider, MD Neto [address] [place] [id number] Social History Tobacco Use Types Packs/Day Years Used Date Smoking Tobacco: Never Assessed Sex and Gender Information Value Date Recorded Sex Assigned at Not on file 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 us Historical Provider MD Final Res ult * SCAN - LABS (12/26/2015 12:00 AM CDT) Narrative 12/26/2015 12:00 AM CDT Ordered by an unspecified provider. us Historical Provider Final Res ult documented in this encounter Visit Diagnoses Not on filedocumented in this encounter Additional Health Concerns Infection Onset Date Last Indicated Resolved Time COVID: Suspected 10/30/2022 10/30/2022 10/31/2022 12:46 AM CDT documented as of this encounter Care Teams Candy Attendant Relationship Specialty Start Date End Date Hai Cardoso MD [address] [place] [id number] PCP - General Family Medicine 01/27/19 Calin Belle MD [address] [place] [address] Consulting Physician Interventional Cardiology 11/28/20 Curt Zapien DO [address] [place] [address] MEDICAL ONCOLOGY, [address] [address] Medical Oncologist/Lead Medical Technologist Hematology and Oncology 10/06/22 Thi Lin RN [address] [place] [address] [address] [place] [address] Recorder Helper Seismograph 11/05/22 12/30/22 documented as of this encounter
--- OUTSIDE RECORDS SUMMARY | 2024-09-26 12:59 | XMS_ITS | Encounter Summary ---
Author Organization [facility] Facility Care Team Providers Care Targeteer Name Role Phone Hai Cardoso MD Primary Care Provider + Calin Belle MD Unavailable [phone] Curt Zapien DO Unavailable [phone] Thi Lin RN Unavailable [phone] Encounter Details Date Type Department Care Team (Latest Contact Info) Description 08/18/2017 Orders Only [facility] CLINCONV ProviderNeto MD [address] [place] [address] Social History Tobacco Use Types Packs/Day Years Used Date Smoking Tobacco: Never Assessed Sex and Gender Information Value Date Recorded Sex Assigned at Not on file 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 Historical Provider Final Res ult documented in this encounter Visit Diagnoses Not on filedocumented in this encounter Additional Health Concerns Infection Onset Date Last Indicated Resolved Time COVID: Suspected 10/30/2022 10/30/2022 10/31/2022 12:46 AM CDT documented as of this encounter Care Teams Targeteer Relationship Specialty Start Date End Date Hai Cardoso MD [facility] [address] [place], [place] [id number] PCP - General Family Medicine 01/27/19 Calin Belle MD [facility] [address] [address] Consulting Physician Interventional Cardiology 11/28/20 Curt Zapien DO [address] [place] [address] MEDICAL ONCOLOGY, [address] [id number] Medical Oncologist/Patent Solicitor Hematology and Oncology 10/06/22 Thi Lin RN [address] [place] [address] [facility] [address] [place] [address] Limnology Teacher 11/05/22 12/30/22 documented as of this encounter
--- OUTSIDE RECORDS SUMMARY | 2024-09-26 12:59 | XMS_ITS | Clinical Summary ---
Author Organization [facility] [employer] Address [address] [place] [address] Care Team Providers Care Housekeeping Supervisor Hotel Name Role Phone Hai Cardoso MD Primary Care Provider + Source Comments [facility],non-owned Affiliates and Associated Physician Practices is amultiple site organization consisting of ambulatory clinics and hospital sitesin [place], [place], [place] and [place]. This disclosure is being madepursuant to the Care Everywhere program and may not contain all information available regarding this patient. Last updated 18.[facility] [employer] Allergies Active Allergy Reactions Criticality Noted Date Comments Lisinopril Cough Low 01/27/2019 Medications * Be aware that medications may not be up to date on this document. Alwaysverify current medications with the patient. isosorbide mononitrate CR 24hr (IMDUR) 60 MG tablet Take 120 mg by mouth once daily 0 Active ranolazine ER 12hr (RANEXA) 1000 MG tablet TAKE 1 TABLET BY MOUTH TWICE A DAY 8 Active clopidogrel (PLAVIX) 75 MG tablet Take 75 mg by mouth once daily 0 Active ezetimibe (ZETIA) 10 MG tablet Take 10 mg by mouth once daily 0 Active rosuvastatin (CRESTOR) 40 MG tablet TAKE 1 TABLET BY MOUTH EVERY DAY 0 Active metoprolol succinate XL 24hr (TOPROL XL) 25 MG tablet Take 25 mg by mouth once daily 0 Active tamsulosin (FLOMAX) 0.4 MG capsule Take 0.4 mg by mouth once daily 0 Active SPIRIVA HANDIHALER 18 MCG inhalation capsule INHALE 1 CAPSULE VIA HANDIHALER ONCE DAILY AT THE SAME TIME EVERY DAY 0 Active folic acid 400 MCG tablet Take 400 mcg by mouth Active famotidine (PEPCID) 20 MG tablet Take 20 mg by mouth Active coenzyme Q10 100 MG capsule 100 mg Active vitamin D3 (CHOLECALCIFEROL ) 125 MCG (5000 UT) capsule 5,000 Units Active albuterol-ipratr opium (DUO-NEB) 0.5-2.5 (3) MG/3ML nebulizer solution INHALE CONTENTS OF 1 VIAL PER NEBULIZER 4 TIMES DAILY NEEDED FOR WHEEZING/SHORTN ESS OF BREATH 1 Active magnesium gluconate (MAGTRATE) 500 MG tablet Take 500 mg by mouth Active Milk Thistle 300 MG Active nitroGLYCERIN (NITROSTAT) 0.[address] 1 TABLET (0.4 MG TOTAL) UNDER THE TONGUE EVERY 5 (FIVE) MINUTES NEEDED FOR CHEST PAIN 1 Active [place]-3 1000 MG 1,200 mg Acti ve Pyridoxine HCl 100 MG Take 100 mg by mouth Active levothyroxine (SYNTHROID) 137 MCG tablet Synthroid 137 mcg tablet TAKE 1 TABLET(S) EVERY OTHER DAY BY ORAL ROUTE IN THE MORNING FOR 30 DAYS. Active aspirin EC (ECOTRIN) 81 MG tablet aspirin 81 mg tablet,delayed release Take 1 tablet every day by oral route. Active albuterol HFA (PROVENTIL;YVONNE KAJAL;PROAIR) 108 (90 Base) MCG/ACT inhaler albuterol sulfate HFA 90 mcg/actuation aerosol inhaler Active linaCLOtide (LINZESS) 145 MCG capsule Take 1 (one) capsule by mouth daily before breakfast Take on an empty stomach at least 30 minutes prior to first meal of the day. 30 capsule 5 1 Active SYNTHROID 125 MCG tablet TAKE 1 TABLET BY MOUTH EVERY DAY IN THE MORNING 1 Active Vitamin E Acetate 125 UNIT/ML 5,000 mcg Active Active Problems Problem Noted Date Diagnosed Date Pulmonary hypertension 03/22/2020 Bloating 03/09/2020 Overview (03/09/2020): Patient s/p large weight loss and large diastasis recti. States he would like to see a fuel cell assembler for his abdominal complaints of constipation, bloating, and some diarrhea on occasional. Ochoa Beckford MD 03/09/2020 12:25 PM Dept. Of Surgery, [facility] -- Dr. Beckford' corporate legal secretary, Seng: [phone] Beeper: [phone] Diastasis recti 02/24/2020 Overview (03/09/2020): 80 y/o male presents in referral regarding a uniform epigastric bulge from xyphoid to umbilicus ~4 cm wide most consistent with a diastasis recti but with a history of a significant weight loss previously and now significant redundancy. Will CT scan to evaluate. Ochoa Beckford MD 02/24/2020 10:51 AM Dept. Of Surgery, [facility] -- Dr. Beckford' corporate legal secretary, Seng: [phone] Beeper: [phone] 80 y/o male presents in referral regarding a uniform epigastric bulge from xyphoid to umbilicus ~4 cm wide most consistent with a diastasis recti but with a history of a significant weight loss previously and now significant redundancy. CT of abdomen/pelvis demonstrates an intact midline fascia from the xyphoid process to the symphysis pubis. The bulge above the umbilicus is a diastasis recti due to redundancy of the midline fascia after a large weight loss. Discussed with the patient 6 tamara wrap and 9 binder as most appropriate way to deal with his diastasis recti. Ochoa Beckford MD 03/09/2020 12:03 PM Dept. Of Surgery, [facility] -- Dr. Beckford' corporate legal secretary, Seng: [phone] Beeper: [phone] Fatigue 01/30/2020 Overview (02/24/2020): Last Assessment & Plan: - unclear etiology - check TSH and testosterone - most likely due to poor exercise tolerance after CABG Hypothyroidism, unspecified 01/30/2020 Overview (02/24/2020): Last Assessment & Plan: - check TSH Spinal stenosis 01/30/2020 Overview (02/24/2020): Last Assessment & Plan: - uncontrolled - ref to pain management for possible injections - pt not interested in surgery at this time and has failed PT Nonrheumatic mitral valve regurgitation 03/23/20 19 Weakness of left lower extremity 02/18/2019 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 Initial troponin negative. 09/16/17: Cardiac catheterization : Cardiac catheterization revealed patency of left main stent. There were no lesions requiring intervention. Medical therapy has been advised. Amlodipine has been added for additional antianginal effect. This dose can be titrated in the outpatient setting. He is stable for discharge home from a cardiac standpoint. Follow-up in our office as scheduled Presence of stent in coronary artery 09/08/2017 Overview (02/24/2020): Coronary stent left main August 2017 COPD with acute exacerbation 06/10/2017 Overview (02/24/2020): Last Assessment & Plan: No PFTs available. Used Spiriva at home. No bronchospasm on auscultation. Nebs PRN. Restart Spiriva on transfer. Wean FiO2 as tolerated. Last Assessment & Plan: - stable - continue current medications Diastolic dysfunction 02/26/2016 Overview (02/24/2020): Grade 2 Dyslipidemia 02/26/2016 Overview (02/24/2020): On Crestor and Zetia with lipids at goal Non-rheumatic tricuspid valve insufficiency 02/07 Overview (02/24/2020): Mild Mild Mild Mild Vitamin D deficiency 02/26/2016 Overview (02/24/2020): Normalized on supplementation Hx of CABG 10/31/2014 Overview (02/24/2020): Last Assessment & Plan: Post cath instructions Med mgt, will start Ranexa for angina Ok for home Cont asa b zachary statin CAD (coronary artery disease) 08/25/2014 Overview (02/24/2020): Last Assessment & Plan: 09/15/17: Patient is 3 years status post four-vessel bypass. He is also 3 weeks status post left main stent deployment. Remains on dual antiplatelet therapy with aspirin and Plavix Status post myocardial infarction in 1997 with an OM stent implanted Cypher stent in the RCA on 08/14/2005 and Cypher stent in the OM branch in the area of in stent restenosis on 06/10/2010 with NSTEMI was xience stent to the mid RCA on 10/13/2011 stent th Last Assessment & Plan: - stable - f/u with cardiology as planned SOB (shortness of breath) 09/07/2013 Overview (02/24/2020): Last Assessment & Plan: Work up and treatment per Dr. Langley HTN (hypertension) 07/24/2013 Overview (02/24/2020): Last Assessment & Plan: 09/15/17: BP controlled 09/17/17: Stable Controlled Last Assessment & Plan: - controlled - continue current medications Resolved Problems Problem Noted Date Diagnosed Date Resolved Date Functional diarrhea 03/09/2020 04/06/20 Overview (03/09/2020): Patient s/p large weight loss and large diastasis recti. States he would like to see a fuel cell assembler for his abdominal complaints of constipation, bloating, and some diarrhea on occasional. Ochoa Beckford MD 03/09/2020 12:24 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 Gender Identity Not on file Sexual Orientation Not on file Last Filed Vital Signs Vital Sign Reading Time Taken Comments Blood Pressure 162/85 01/29/2021 10:38 AM CDT Pulse 60 01/29/2021 10:38 AM CDT Temperature 36.9 C (98.4 F) 01/29/2021 10:38 AM CDT Respiratory Rate 16 01/29/2021 10:38 AM CDT Oxygen Saturation 98% 01/29/2021 10:38 AM CDT Inhaled Oxygen Concentration - - Weight 77.6 kg (171 lb) 01/29/2021 10:38 AM CDT Height 172.7 cm (5' 8 ) 01/29/2021 10:38 AM CDT Body Mass Index 26 01/29/2021 10:38 AM CDT Plan of Treatment Health Maintenance Due Date Last Done Comments DTAP/TDAP/TD VACCINES (1 - Tdap) 01/07/1960 PNEUMOCOCCAL VACCINE 50+ (1 of 2 - PCV) 01/07/1960 ZOSTER VACCINE (1 of 2) 1991 Respiratory Syncytial Virus (RSV) Vaccine Pt: or over 60 yrs (1 - 1-dose 75+ series) 01/07/2016 COVID-19 VACCINE (3 - season) 2024 08/14/2020, 07/24/2020 DEPRESSION SCREENING 06/08/2024 MEDICARE AWV CALENDAR YEAR 2024 INFLUENZA VACCINE (Season Ended) 2025 01/21/2020, 04/12/2019, 05/10/2018, Additional history exists HEPATITIS B VACCINE Aged Out No longe r eligible based on patient's age to complete this topic HIB VACCINE Aged Out No longer eligi ble based on patient's age to complete this topic HPV VACCINE Aged Out No longer eligi ble based on patient's age to complete this topic MENINGOCOCCAL (Group B) VACCINE SHARED DECISION-MAKING Aged Out No longer eligible based on patient's age to complete this topic MENINGOCOCCAL GROUPS A/C/Y/W VACCINE Aged Out No longer eligible based on patient's age to complete this topic Insurance [employer] MEDICARE ADV HMO & PPO Care Teams Housekeeping Supervisor Hotel Relationship Specialty Start Date End Date Hai Cardoso MD [address] [address] PCP - General Family Medicine 03/05/20
--- OUTSIDE RECORDS SUMMARY | 2024-09-26 12:59 | XMS_ITS | Encounter Summary ---
Author Organization [facility] Facility Care Team Providers Care Manager Business Operations Name Role Phone Hai Cardoso MD Primary Care Provider + Calin Belle MD Unavailable [phone] Curt Zapien DO Unavailable [phone] Thi Lin RN Unavailable [phone] Encounter Details Date Type Department Care Team (Latest Contact Info) Description 02/18/2017 Orders Only [facility] CLINCONV ProviderNeto MD [address] [place] [address] Social History Tobacco Use Types Packs/Day Years Used Date Smoking Tobacco: Never Assessed Sex and Gender Information Value Date Recorded Sex Assigned at Not on file 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 Historical Provider Final Res ult documented in this encounter Visit Diagnoses Not on filedocumented in this encounter Additional Health Concerns Infection Onset Date Last Indicated Resolved Time COVID: Suspected 10/30/2022 10/30/2022 10/31/2022 12:46 AM CDT documented as of this encounter Care Teams Manager Business Operations Relationship Specialty Start Date End Date Hai Cardoso MD [facility] [address] [place], [place] [id number] PCP - General Family Medicine 01/27/19 Calin Belle MD [facility] [address] Consulting Physician Interventional Cardiology 11/28/20 Curt Zapien DO [address] [place] [address] MEDICAL ONCOLOGY, [address] [id number] Medical Oncologist/Director Of Reservations Hematology and Oncology 10/06/22 Thi Lin RN [address] [place] [address] [facility] [address] [place] [address] Principal Engineer 11/05/22 12/30/22 documented as of this encounter
--- OUTSIDE RECORDS SUMMARY | 2024-09-26 12:59 | XMS_ITS | Encounter Summary ---
Author Organization [facility] Facility Care Team Providers Care Film Laboratory Technician Name Role Phone Hai Cardoso MD Primary Care Provider + Calin Belle MD Unavailable [phone] Curt Zapien DO Unavailable [phone] Thi Lin RN Unavailable [phone] Encounter Details Date Type Department Care Team (Latest Contact Info) Description 11/07/2016 Orders Only [facility] ProviderNeto MD [address] [place] [id number] Social History Tobacco Use Types Packs/Day Years Used Date Smoking Tobacco: Never Assessed Sex and Gender Information Value Date Recorded Sex Assigned at Not on file Legal 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 Historical Provider Final Res ult documented in this encounter Visit Diagnoses Not on filedocumented in this encounter Additional Health Concerns Infection Onset Date Last Indicated Resolved Time COVID: Suspected 10/30/2022 10/30/2022 10/31/2022 12:46 AM CDT documented as of this encounter Care Teams Film Laboratory Technician Relationship Specialty Start Date End Date Hai Cardoso MD [facility] [address] [place], [place] [phone] PCP - General Family Medicine 01/27/19 Calin Belle MD [facility] [address] Consulting Physician Interventional Cardiology 11/28/20 Curt Zapien DO [address] [place] [address] MEDICAL ONCOLOGY, [address] [id number] Medical Oncologist/[place] Process Engineer Hematology and Oncology 10/06/22 Thi Lin RN [address] [place] [address] [facility] [address] [place] [address] Media Relations Associate 11/05/22 12/30/22 documented as of this encounter
--- OUTSIDE RECORDS SUMMARY | 2024-09-26 12:59 | XMS_ITS | Encounter Summary ---
Author Organization [facility] Address [address] [facility] [place] [address] Care Team Providers Care Social Services Specialist Name Role Phone Hai Cardoso MD Primary Care Provider + Encounter Details Date Type Department Care Team (Late st Contact Info) Description 12/23/2022 Lab Requisition [facility] - DermPath Lab [address] [facility] [place] [address] Toy Ambrose MD [facility] [place], [place] [id number] Social History Tobacco Use Types Packs/Day Years Used Date Smoking Tobacco: Never Smokeless Tobacco: Never Alcohol Use Standard Drinks/Week Comments Not Currently 0 (1 standard drink = 0.6 oz pur e alcohol) Sex and Gender Information Value Date Recorded Sex Assigned at Not on file 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 Gender Identity Not on file Sexual Orientation Not on file documented as of this encounter Plan of Treatment Not on file documented as of this encounter Procedures Procedure Name Priority Date/Time Associated Diagnosis Comments DERMATOPATHOLOGY Routine 12/23/2022 12:0 0 AM CDT documented in this encounter Results * DERMATOPATHOLOGY (12/23/2022 12:00 AM CDT) Case Report Dermatopathology Report Case: [id number] Authorizing Provider: Toy Ambrose MD Collected: 12/23/2022 12:00 AM Ordering Location: [facility] DermPath Lab Received: 12/23/2022 04:10 PM Pathologist: Jesica Dowell MD Specimens: A) - Skin, right lat. upper arm B) - Skin, right axilla 2:10 PM CDT DERMATOPATHOLOGY LABORATORY Final Diagnosis Specimen A. SKIN, right lat. upper arm: NEUROFIBROMA (D36.10) NOT PRESENT AT SAMPLED MARGIN Specimen B. SKIN, right axilla: SEBORRHEIC KERATOSIS (L82.1) PRESENT AT MARGIN (see microscopic description) 2:10 PM CDT DERMATOPATHOLOGY LABORATORY Clinical History A-B: polyp Check margin 2:10 PM CDT DERMATOPATHOLOGY LABORATORY Gross Description Specimen A: Received is one formalin filled container labeled with the patient's name and designated right lat. upper arm. The specimen consists of a [id number] and 4x4x2 mm piece of skin. The margin is inked green. The specimen is bisected lengthwise and submitted in 1 cassette. Jar 0. Specimen B: Received is one formalin filled container labeled with the patients name and designated right axilla. The specimen consists of a shave removal measuring 3x2x1 mm. Jar 0. 2:10 PM CDT DERMATOPATHOLOGY LABORATORY Microscopic Description Specimen A. SKIN, right lat. upper arm: Sections show a proliferation of spindled and S-shaped cells within the dermis. The stromal collagen is delicate and pale. This lesion is not present at the sampled margin of the specimen. Specimen B. SKIN, right axilla: Sections show an acanthotic lesion composed of relatively uniform keratinocytes. There is hyperkeratosis and pseudo horn cysts formation. This lesion is present at the margin of the specimen. Additional deeper sections were obtained and reviewed. 07/20/202 3 2:10 PM CDT DERMATOPATHOLOGY LABORATORY Disclaimer An external and internal positive and negative controls are appropriate for the histochemical, immunohistochemical and immunofluorescence stain(s) in this case (if any), except where stated explicitly. The performance characteristics of the stain(s) cited in this report were developed and its performance characteristic determined by the Dermatopathology Laboratory at [facility], directed by Dr. Shiva Dowell. These tests need not be, and therefore are not, approved by the [place] Food and Drug Administration. The tests are used for clinical purposes. Billing Codes Specimen Charges Stain Charges 12173 37412 1 1 3 2:10 PM CDT DERMATOPATHOLOGY LABORATORY Embedded Images 3 2:10 PM CDT DERMATOPATHOLOGY LABORATORY Pathology/Cytology TISSUE SPECIMEN FROM SKIN / Unknown 12/23/2022 12/23/2022 4:10 PM CDT Miscellaneous samples (specimen) TISSUE SPECIMEN FROM SKIN / Unknown 12/23/2022 12/23/2022 4:10 PM CDT Toy Ambrose MD LAB - PATHOLOGY/CYTOLOGY ORDERAB LES Final Result DERMATOPATHOLOGY LABORATORY [facility] - Department of Dermatology [facility] [address] [place] [address], [address] [phone] documented in this encounter Visit Diagnoses Not on filedocumented in this encounter Care Teams Social Services Specialist Relationship Specialty Start Date End Date Hai Cardoso MD [address] [place] [id number] PCP - General Family Medicine 03/05/20 documented as of this encounter
--- OUTSIDE RECORDS SUMMARY | 2024-09-26 12:59 | XMS_ITS | Encounter Summary ---
Author Organization [facility] Address [address] [facility] [place] [address] Care Team Providers Care Meters Superintendent Name Role Phone Hai Cardoso MD Primary Care Provider + Encounter Details Date Type Department Care Team (Late st Contact Info) Description 03/03/2024 Lab Requisition [facility] - DermPath Lab [address] [facility] [place] [address] Toy Ambrose MD [facility] [place], [place] [phone] Social History Tobacco Use Types Packs/Day Years Used Date Smoking Tobacco: Never Smokeless Tobacco: Never Alcohol Use Standard Drinks/Week Comments Not Currently 0 (1 standard drink = 0.6 oz pur e alcohol) Sex and Gender Information Value Date Recorded Sex Assigned at Not on file 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 Gender Identity Not on file Sexual Orientation Not on file documented as of this encounter Plan of Treatment Not on file documented as of this encounter Procedures Procedure Name Priority Date/Time Associated Diagnosis Comments DERMATOPATHOLOGY Routine 03/02/2024 3:33 AM CDT documented in this encounter Results * DERMATOPATHOLOGY (03/02/2024 3:33 AM CDT) Case Report Dermatopathology Report Case: [id number] Authorizing Provider: Toy Ambrose MD Collected: 03/02/2024 03:33 AM Ordering Location: [facility] - Received: 03/03/2024 04:14 PM DermPath Lab Pathologist: Leah Day MD Specimen: Skin, left paranasal 11:17 AM CDT DERMATOPATHOLOGY LABORATORY Final Diagnosis Specimen A. SKIN, left paranasal: SEBORRHEIC KERATOSIS, IRRITATED (L82.0) 11:17 AM CDT DERMATOPATHOLOGY LABORATORY Clinical History R/o BCC 11:17 AM CDT DERMATOPATHOLOGY LABORATORY Gross Description Specimen A: Received is one formalin filled container labeled with the patient's name and designated left paranasal. The specimen consists of a shave biopsy measuring 4x3x1 mm. Jar 0. 11:17 AM CDT DERMATOPATHOLOGY LABORATORY Microscopic Description Specimen A. SKIN, left paranasal: There is acanthosis consisting of fairly uniform squamous cells with eosinophilic cytoplasm and squamous eddies. 11:17 AM CDT DERMATOPATHOLOGY LABORATORY Disclaimer An external and internal positive and negative controls are appropriate for the histochemical, immunohistochemical and immunofluorescence stain(s) in this case (if any), except where stated explicitly. The performance characteristics of the stain(s) cited in this report were developed and its performance characteristic determined by the Dermatopathology Laboratory at [facility], directed by Dr. Shiva Dowell. These tests need not be, and therefore are not, approved by the [place] Food and Drug Administration. The tests are used for clinical purposes. Billing Codes Specimen Charges Stain Charges 91954 1 11:17 AM CDT DERMATOPATHOLOGY LABORATORY Embedded Images 11:17 AM CDT DERMATOPATHOLOGY LABORATORY Pathology/Cytolo gy TISSUE SPECIMEN FROM SKIN / Unknown 03/02/2024 3:33 AM CDT 03/03/2024 4:14 PM CDT us Toy Ambrose MD LAB - PATHOLOGY/CYTOLOGY ORDERAB LES Final Result DERMATOPATHOLOGY LABORATORY [facility] - Department of Dermatology [facility] Medicine [address] [place] [address], [address] [phone] documented in this encounter Visit Diagnoses Not on filedocumented in this encounter Care Teams Meters Superintendent Relationship Specialty Start Date End Date Hai Cardoso MD [address] [place] [id number] PCP - General Family Medicine 03/05/20 documented as of this encounter
--- OUTSIDE RECORDS SUMMARY | 2024-09-26 12:59 | XMS_ITS ---
Author Organization [facility] Address [address] [facility] [place] [address] Care Team Providers Care Digital Marketing Assistant Name Role Phone Hai Cradoso MD Primary Care Provider + Active Problems Problem Noted Date Diagnosed Date Pulmonary hypertension 03/22/2020 Bloating 03/09/2020 Overview (03/09/2020): Patient s/p large weight loss and large diastasis recti. States he would like to see a senior manager for his abdominal complaints of constipation, bloating, and some diarrhea on occasional. Ochoa Beckford MD 03/09/2020 12:25 PM Dept. Of Surgery, [facility] -- Dr. Beckford' medical secretary receptionist, Seng: [phone] Beeper: [phone] Diastasis recti 02/24/2020 Overview (03/09/2020): 80 y/o male presents in referral regarding a uniform epigastric bulge from xyphoid to umbilicus ~4 cm wide most consistent with a diastasis recti but with a history of a significant weight loss previously and now significant redundancy. Will CT scan to evaluate. Ochoa Beckford MD 02/24/2020 10:51 AM Dept. Of Surgery, [facility] -- Dr. Beckford' medical secretary receptionist, Seng: [phone] Beeper: [phone] 80 y/o male presents in referral regarding [...] MD 03/09/2020 12:03 PM Dept. Of Surgery, [facility] -- Dr. Beckford' medical secretary receptionist, Seng: [phone] Beeper: [phone] Fatigue 01/30/2020 Overview (02/24/2020): Last Assessment & [...] Plan: - controlled - continue current medications Current Treatment and Therapy Plans No current plan information found. Past Treatment and Therapy Plans No past plan information found. 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 States he would like to see a senior manager for his abdominal complaints of constipation, bloating, and some diarrhea on occasional. Ochoa Beckford MD 03/09/2020 12:[facility] medical secretary receptionist, Seng: [phone] Beeper: [phone] Ventral hernia 01/30/2020 03/09/2020 Overview (02/24/2020): Last Assessment & Plan: - ref to gen surg for eval
--- OUTSIDE RECORDS SUMMARY | 2024-09-26 12:59 | XMS_ITS | Clinical Summary ---
Author Organization [facility] Address [address] [place] [address] Care Team Providers Care Biology Tutor Name Role Phone Hai Cardoso MD Primary Care Provider + Calin Belle MD Unavailable [phone] Curt Zapien DO Unavailable [phone] Allergies Active Allergy Reactions Criticality Noted Date Comments Lisinopril Cough Low 01/27/2019 Medications coenzyme Q10 100 mg capsule 1 capsule (100 mg total) daily Active cholecalciferol (VITAMIN D-3) 2000 unit capsule 1 capsule (2,000 Units total) daily Active folic acid (FOLVITE) 400 mcg tablet Take 2 tablets (800 mcg total) by mouth daily Active cyanocobalamin, vitamin B-12, (VITAMIN B-12 ORAL) Take 5,000 mcg by mouth daily Active milk thistle 175 mg tablet Take 1 tablet (175 mg total) by mouth daily Active polyethylene glycol (MIRALAX) 17 gram packetIndications: constipation Take 1 packet (17 g total) by mouth daily Active nitroglycerin (Nitrostat) 0.[address] 1 tablet (0.4 mg total) under the tongue every 5 (five) minutes as needed for chest pain 25 tablet 2 07/03/19 23 Active furosemide (LASIX) 20 mg tabletIndications: Bilateral lower extremity edema TAKE 1 TABLET (20 MG TOTAL) BY MOUTH DAILY NEEDED (SWELLING IN HIS LEGS) 90 tablet 07/21/19 23 Active senna-docusate (PERICOLACE) 8.6-50 mg Take 2 tablets by mouth 2 (two) times a day 11/04/19 23 Active lactulose (CEPHULAC) 10 gram packetIndications: constipation Take 1 packet (10 g total) by mouth daily 30 packet 11/04/19 23 026 Active famotidine (PEPCID) 20 mg tablet Take 1 tablet (20 mg total) by mouth 2 (two) times a day for 14 days 28 tablet 11/21/19 23 026 Active metoclopramide (REGLAN) 10 mg tabletIndications: Irritable bowel syndrome with constipation Take 1 tablet (10 mg total) by mouth 4 (four) times a day before meals and nightly 120 tablet 2 12/12/19 23 026 Active spironolactone (ALDACTONE) 25 mg tabletIndications: Essential hypertension,Bilat eral lower extremity edema Take 0.5 tablet by mouth daily. 45 tablet 3 04/23/20 23 Active clopidogreL (PLAVIX) 75 mg tablet Take 1 tablet (75 mg total) by mouth daily 90 tablet 3 05/06/20 23 Active rosuvastatin (CRESTOR) 40 mg tablet Take 1 tablet (40 mg total) by mouth daily 90 tablet 2 07/06/19 24 Active ranolazine ER (RANEXA) 1,000 mg 12 hr tablet TAKE 1 TABLET BY MOUTH TWICE A DAY 180 tablet 2 07/06/19 24 Active isosorbide mononitrate ER (IMDUR) 60 mg 24 hr tablet Take 2 tablets (120 mg total) by mouth daily 180 tablet 3 07/16/[address] (PROTONIX) 40 mg EC tabletIndications: Peptic ulcer disease Take 1 tablet (40 mg total) by mouth daily 90 tablet 1 03/25/20 24 Active tamsulosin (FLOMAX) 0.4 mg extended release capsuleIndications :benign prostatic hyperplasia with lower urinary tract sx Take 2 capsules (0.8 mg total) by mouth daily 180 capsule 3 03/25/20 24 025 Active levothyroxine (SYNTHROID) 150 mcg tabletIndications: Postablative hypothyroidism Take 1 tablet (150 mcg total) by mouth organizational development consultant before breakfast 90 tablet 3 03/25/20 24 025 Active finasteride (PROSCAR) 5 mg tabletIndications: benign prostatic hyperplasia with lower urinary tract sx TAKE 1 TABLET (5 MG TOTAL) BY MOUTH DAILY. 90 tablet 3 04/15/20 24 025 Active albuterol HFA (PROVENTIL HFA,VENTOLIN HFA,PROAIR HFA) 90 mcg/actuation inhalerIndications :Simple chronic bronchitis (HCC) TAKE 2 PUFFS BY MOUTH EVERY 6 HOURS NEEDED FOR WHEEZE 20.1 each 1 07/04/19 25 Active ipratropium-albute roL (DUO-NEB) 0.5-2.5 mg/3 mL nebulizer solutionIndication s:Chronic Obstructive Pulmonary Disease with Bronchospasms Take 3 mL by nebulization 4 (four) times a day as needed for wheezing or shortness of breath 180 mL 3 07/05/19 25 Active budesonide-glycopy r-formoterol (Breztri Aerosphere) 160-9-4.8 mcg/actuation inhalerIndications :Simple chronic bronchitis (HCC) Inhale 2 puffs 2 (two) times a day 10.7 each 11 08/26/19 25 Active Active Problems Problem Noted Date Diagnosed Date Pain in both lower extremities 11/12/2022 Assessment & Plan (12/01/2022 12:03 PM CDT): Lower extremities are warm well perfused with palpable distal pulses. States he does have pain along his varicosities to the right posterior calf worse on the right than the left. Does have issues with edema associated with prolonged periods of standing. Has tried compression which is not help. Denies any rest pain. Plan: Continue risk factor modifications, compliance with medications. Continue utilizing compression stockings to both lower extremities frequent elevation throughout the day. Follow-up in the next few weeks with a venous reflux. Assessment & Plan (11/12/2022 3:53 PM CDT): - likely claudication - will ref to vascular for eval. Gastric nodule 03/31/2022 Overview (03/31/2022): Added automatically from request for surgery [id number] Assessment & Plan (10/10/2022 12:26 PM CDT): - rec pt f/u with GI but he is refusing. Bilateral lower extremity edema 03/26/2022 Assessment & Plan (12/23/2022 4:26 PM CDT): Bilateral lower extremity edema with varicosities overall the varicosities are not too symptomatic at this time. I discussed the importance of compression therapy. I have written a prescription for new compression stockings. Can follow-up p.r.n. if the varicosities becomes symptomatic. On fdc clopidogrel therapy 03/26/2022 Peptic ulcer disease 01/29/2022 Assessment & Plan (10/10/2022 12:26 PM CDT): - uncontrolled sx - increase protonix to 40mg bid to see if sx will improve - if no improvement rec pt f/u with GI Assessment & Plan (01/29/2022 1:42 PM CDT): EGD results from [place] in June 2021 consistent with gastric ulcers, 1 with a small visible vessel status post clip placement x2; also punctate duodenal ulcer, biopsies were negative for H pylori. Patient has recently stopped aspirin and Plavix per Cardiology. -recommend repeat EGD to assess ulcer healing after cardiac clearance -continue PPI, increase to b.i.d. -avoid NSAIDs -The risks (risks of bleeding, infection, perforation requiring surgery, missed polyps/cancer, dental injury, aspiration pneumonia, anesthesia complications such as drug reaction and cardiopulmonary complications including rare chance of ), benefits, and alternatives of the planned procedure were explained to the patient who understands and consents to having procedure done. Abdominal pain 01/29/2022 Assessment & Plan (10/07/2023 12:12 PM CDT): - unclear etiology - continue stool softeners - will get CTA abd to r/o chronic mesenteric ischemia Assessment & Plan (01/29/2022 1:40 PM CDT): Epigastric pain sharp and burning in nature, worse with eating, improved with bowel movements. Could be secondary to peptic ulcer disease noted on EGD in June 2021 in [place]. Patient was just recently started on pantoprazole with some improvement of symptoms. CT scan in January of 2022 also with large amount of retained debris in the colon and rectum concerning for constipation. -avoid NSAIDs -increase PPI to b.i.d. -recommend aggressive treatment of constipation Irritable bowel syndrome with constipation 01/29 Assessment & Plan (01/29/2022 1:41 PM CDT): Patient has a history of constipation for the past 5 years getting progressively worse. Colonoscopy in June of 2021 was unremarkable in [place], records reviewed. Patient is taking Benefiber, MiraLax, and prune juice with little effect. He is tried Linzess 145 mcg daily but stopped due to ineffectiveness. -high-fiber diet -recommend increasing Linzess to 290 mcg p.o. daily -continue MiraLax OTC as needed Gastroparesis 01/08/2022 Assessment & Plan (01/29/2022 1:43 PM CDT): Symptoms not consistent with gastroparesis, patient denies any nausea or vomiting. Patient tried Reglan however stopped due to side effects. -agree with stopping Reglan -aggressive treatment of constipation Assessment & Plan (01/08/2022 3:25 PM CDT): - uncontrolled; chronic - sx more consistent with gastroparesis, IBS or alternate motility disorder than constipation - will trial reglan to see if improved motility will help with sx - alternately could consider bentyl - ref to GI for evaluation LBBB (left bundle branch block) 10/16/2021 Encounter for preventive health examination 04/08 Assessment & Plan (03/25/2024 10:47 AM CDT): - Reviewed with the patient BMI, blood pressure, diet, exercise, and encouraged healthy lifestyle choices. - Screened for high risk behaviors, diet and exercise habits, and symptoms of depression. - check screening labs - encouraged regular exercise and weight loss Assessment & Plan (04/07/2023 3:00 PM CDT): - Reviewed with the patient BMI, blood pressure, diet, exercise, and encouraged healthy lifestyle choices. - Screened for high risk behaviors, diet and exercise habits, and symptoms of depression. - reviewed screening labs - encouraged regular exercise and weight loss Assessment & Plan (04/16/2022 10:46 AM PROCEDURES TECH): - Reviewed with the patient BMI, blood pressure, diet, exercise, and encouraged healthy lifestyle choices. - Screened for high risk behaviors, diet and exercise habits, and symptoms of depression. - reviewed screening labs - encouraged regular exercise Assessment & Plan (04/19/2021 2:05 PM PROCEDURES TECH): - Reviewed with the patient BMI, blood pressure, diet, exercise, and encouraged healthy lifestyle choices. - Screened for high risk behaviors, diet and exercise habits, and symptoms of depression. - reviewed screening labs - encouraged regular exercise and weight loss Pancytopenia 12/24/2020 Macrocytic anemia 12/24/2020 Pulmonary nodule 12/19/2020 Assessment & Plan (12/22/2020 2:42 PM CDT): Pulmonary nodules were noted on CT scan of the chest done in December 2019. Patient was supposed to follow-up with his pen and pencil repairer as advised to him and his but he could not follow up with any body. I will obtain a CT scan of the chest in next 2 weeks. Benign prostatic hyperplasia with nocturia 11/06 Assessment & Plan (03/25/2024 10:47 AM CDT): - stable - continue flomax, finasteride Assessment & Plan (04/07/2023 2:59 PM CDT): - stable - continue current medication Assessment & Plan (04/16/2022 10:45 AM PROCEDURES TECH): - stable - continue current medication Assessment & Plan (04/19/2021 2:04 PM PROCEDURES TECH): - stable - continue current medication Assessment & Plan (11/06/2020 3:00 PM CDT): - stable - continue flomax Chronic bilateral low back pain without sciatica 11/06/2020 Assessment & Plan (04/07/2023 2:59 PM CDT): - stable - continue current medication Assessment & Plan (04/19/2021 2:04 PM PROCEDURES TECH): - stable - continue current medication - consider pain management for steroid injections Assessment & Plan (11/06/2020 2:59 PM CDT): - uncontrolled - ref to [facility] neurosurg per pt request - continue tylenol and lidocaine patches Nonrheumatic aortic valve insufficiency 03/22/20 20 Pulmonary hypertension 03/22/2020 Assessment & Plan (12/22/2020 2:42 PM CDT): Obtain 2D echocardiogram. Hypothyroidism, unspecified 01/30/2020 Assessment & Plan (03/25/2024 10:47 AM CDT): - stable - continue synthroid Assessment & Plan (10/07/2023 12:12 PM CDT): - stable - continue synthroid Assessment & Plan (04/07/2023 3:00 PM CDT): - stable, recheck TSH - continue current medication Assessment & Plan (11/12/2022 3:51 PM CDT): - stable - continue current medication Assessment & Plan (10/10/2022 12:26 PM CDT): - stable - continue current medication - check lab Assessment & Plan (04/16/2022 10:45 AM PROCEDURES TECH): - stable - continue current medication Assessment & Plan (04/19/2021 2:04 PM PROCEDURES TECH): - stable - continue current medication Assessment & Plan (11/06/2020 3:00 PM CDT): - stable - continue current medication Assessment & Plan (01/30/2020 1:38 PM CDT): - check TSH Spinal stenosis 01/30/2020 Assessment & Plan (01/30/2020 1:37 PM CDT): - uncontrolled - ref to pain management for possible injections - pt not interested in surgery at this time and has failed PT Malignant tumor of thyroid gland 12/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 Exertional chest pain 10/19/2018 Presence of stent in coronary artery 09/08/2017 Overview (04/01/2021): Coronary stent left main August 2017 Coronary stent left main August 2017 Coronary stent left main August 2017 Coronary stent left main August 2017 Coronary artery disease of b ypass graft of [place] heart with stable angina pectoris 02/26/2016 Overview (10/14/2018): Status post myocardial infarction in 1997 with an OM stent implanted Cypher stent in the RCA on 08/14/2005 and Cypher stent in the OM branch in the area of in stent restenosis on 06/10/2010 with NSTEMI was xience stent to the mid RCA on 10/13/2011 stent th Assessment & Plan (03/25/2024 10:46 AM CDT): - stable - continue plavix, statin Assessment & Plan (10/07/2023 12:10 PM CDT): - stable - continue plavix Assessment & Plan (04/07/2023 2:59 PM CDT): - stable - continue current medication Assessment & Plan (11/24/2022 3:01 PM CDT): - stable - continue current medication Assessment & Plan (11/12/2022 3:50 PM CDT): - stable - continue current medication Assessment & Plan (10/10/2022 12:27 PM CDT): - stable - continue current medication Assessment & Plan (04/16/2022 10:45 AM PROCEDURES TECH): - stable - continue current medication Assessment & Plan (04/19/2021 2:04 PM PROCEDURES TECH): - stable - continue current medication Assessment & Plan (01/30/2020 1:39 PM CDT): - stable - f/u with cardiology as planned Dyslipidemia 02/26/2016 Overview (10/14/2018): On Crestor and Zetia with lipids at goal Assessment & Plan (03/25/2024 10:46 AM CDT): - stable - continue rosuvastatin, coq10 Assessment & Plan (10/07/2023 12:11 PM CDT): - stable - continue rosuvastatin, coq10 Assessment & Plan (04/07/2023 2:59 PM CDT): - stable - continue current medication Assessment & Plan (11/24/2022 3:01 PM CDT): - stable - continue current medication Assessment & Plan (11/12/2022 3:50 PM CDT): - stable - continue current medication Assessment & Plan (10/10/2022 12:26 PM CDT): - stable - continue current medication Assessment & Plan (04/16/2022 10:45 AM PROCEDURES TECH): - stable - continue current medication Assessment & Plan (04/19/2021 2:04 PM PROCEDURES TECH): - stable - continue current medication Essential hypertension 02/26/2016 Overview (10/14/2018): Controlled Assessment & Plan (03/25/2024 10:46 AM CDT): - stable - continue imdur, spironolactone Assessment & Plan (10/07/2023 12:11 PM CDT): - stable - continue imdur, spironolactone Assessment & Plan (04/07/2023 2:59 PM CDT): - stable - continue current medication Assessment & Plan (11/24/2022 3:01 PM CDT): - stable - continue current medication Assessment & Plan (11/12/2022 3:51 PM CDT): - stable - continue current medication Assessment & Plan (10/10/2022 12:26 PM CDT): - stable - continue current medication Assessment & Plan (04/16/2022 10:45 AM PROCEDURES TECH): - stable - continue current medication Assessment & Plan (01/08/2022 3:25 PM CDT): - stable - continue current medication Assessment & Plan (04/19/2021 2:04 PM PROCEDURES TECH): - stable - continue current medication Assessment & Plan (01/30/2020 1:39 PM CDT): - controlled - continue current medications COPD (chronic obstructive pulmonary disease) Assessment & Plan (03/25/2024 10:47 AM CDT): - stable - continue albuterol, Breztri Assessment & Plan (10/07/2023 12:12 PM CDT): -s table - continue albuterol, spriva Assessment & Plan (04/07/2023 2:59 PM CDT): - stable - continue current medication Assessment & Plan (11/24/2022 3:02 PM CDT): - uncontrolled - suspect mild COPD exacerbation vs. Worsening sinusitis causing cough - will tx with azithromycin and prednisone - continue nebs Assessment & Plan (11/12/2022 3:50 PM CDT): - stable - continue current medication Assessment & Plan (10/10/2022 12:26 PM CDT): - stable - continue current medication Assessment & Plan (04/16/2022 10:45 AM PROCEDURES TECH): - stable - continue current medication Assessment & Plan (01/08/2022 3:25 PM CDT): - stable - continue current medication Assessment & Plan (04/19/2021 2:04 PM PROCEDURES TECH): - stable - continue current medication Assessment & Plan (12/22/2020 2:43 PM CDT): Continue with Spiriva, duo nebs and albuterol inhaler. Assessment & Plan (11/06/2020 2:51 PM CDT): - stable - continue current medication Assessment & Plan (01/30/2020 1:39 PM CDT): - stable - continue current medications Diastolic dysfunction 02/26/2016 Overview (10/14/2018): Grade 2 Assessment & Plan (12/22/2020 2:41 PM CDT): Currently patient is not requiring diuretics. Continue with metoprolol and Imdur. 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 Overview (04/01/2021): Last Assessment & Plan: Post cath instructions Med mgt, will start Ranexa for angina Ok for home Cont asa b zachary statin Last Assessment & Plan: Post cath instructions Med mgt, will start Ranexa for angina Ok for home Cont asa b zachary statin Last Assessment & Plan: Post cath instructions Med mgt, will start Ranexa for angina Ok for home Cont asa b zachary statin Last Assessment & Plan: Post cath instructions Med mgt, will start Ranexa for angina Ok for home Cont asa b zachary statin Shortness of breath 09/07/2013 Overview (04/01/2021): Last Assessment & Plan: Work up and treatment per Dr. Langley Last Assessment & Plan: Work up and treatment per Dr. Langley Last Assessment & Plan: Work up and treatment per Dr. Langley Last Assessment & Plan: Work up and treatment per Dr. Langley Resolved Problems Problem Noted Date Diagnosed Date Resolved Date Hyponatremia 02/12/2023 03/10/2023 Hyponatremia 11/01/2022 11/12/2022 Hyperkalemia 11/01/2022 11/12/2022 COPD exacerbation 10/31/2022 03/10/2023 Urinary retention 10/31/2022 11/12/2022 Acute cystitis without hematuria 10/31/2022 11/12/2022 Pure hypercholesterolemia 10/16/2021 Assessment & Plan (11/24/2022 3:02 PM CDT): - stable - continue current medication Bradycardia 10/16/2021 03/10/2023 Impacted cerumen of right ear 04/19/2021 04/16/2022 Assessment & Plan (04/19/2021 2:18 PM PROCEDURES TECH): Ceruminosis is noted. Wax is removed by syringing. Instructions for home care to prevent wax buildup are given. Weakness of both lower extremities 03/22/2020 03/23/2024 Bloating 03/09/2020 03/10/2023 Overview (04/01/2021): Patient s/p large weight loss and large diastasis recti. States he would like to see a certified master safecracker for his abdominal complaints of constipation, bloating, and some diarrhea on occasional. Ochoa Beckford MD 03/09/2020 12:25 PM Dept. Of Surgery, [facility] -- Dr. Beckford' real estate legal secretary, Seng: [phone] Beeper: [phone] Patient s/p large weight loss and large diastasis recti. States he would like to see a certified master safecracker for his abdominal complaints of constipation, bloating, and some diarrhea on occasional. Ochoa Beckford MD 03/09/2020 12:25 PM Dept. Of Surgery, [facility] -- Dr. Beckford' real estate legal secretary, Seng: [phone] Beeper: [phone] Ventral hernia 01/30/2020 03/23/2024 Assessment & Plan (01/30/2020 1:38 PM CDT): - ref to gen surg for eval Fatigue 01/30/2020 03/10/2023 Assessment & Plan (01/30/2020 1:38 PM CDT): - unclear etiology - check TSH and testosterone - most likely due to poor exercise tolerance after CABG Nonrheumatic mitral valve regurgitation 03/23/2019 03/23/2024 Weakness of left lower extremity 02/18/2019 10/06/2023 Other symptoms and signs inv olving the musculoskeletal system 02/18/2019 04/16/2022 Hyperlipidemia 10/19/2018 04/16/2022 Assessment & Plan (01/30/2020 1:39 PM CDT): - stable - continue medication LVH (left ventricular hypertrophy) 10/19/2018 03/23/2024 Macrocytosis 10/19/2018 03/23/2024 Non-rheumatic tricuspid valve insufficiency 02/26/2016 03/23/2024 Overview (10/14/2018): Mild Mild Mild Mild Vitamin D deficiency 02/26/2016 024 Overview (10/14/2018): Normalized on supplementation Encounters Date Type Department Care Team Description 08/25/2024 Telephone [facility] [address] [place] [phone] Hai Cardoso MD Med Refill from Last 3 Months Immunizations Immunization Administration Dates Next Due COVID-19 mRNA ([employer]) 0.3 m L (30 mcg) vaccine (12 years and up) 03/03/2024 Influenza Virus Vaccine Trivalent Mdv 03/03/2024 Influenza, Quad, Adjuvantate d, Intramuscular 03/21/2022 Influenza, Quadrivalent, Hig h Dose, Preservative Free, Intrr 04/19/2021,01/21/2020 Influenza, Trivalent, High D ose, Split, Preservative Free, Intramuscular 04/12/2019,05/10/2018,05/29/2014,05/17 Influenza, Trivalent, IM (MDV) 06/09/2012 Influenza, Unspecified 03/13/2023 Pfizer SARS-CoV-2 Monovalent Vaccination (12+ Yrs) PURPLE 03/29/2021,08/14/2020,07/24/2020 Pfizer Sars-Cov-2 Bivalent V accination (12+ YRS) 03/13/2023 Pneumococcal Conjugate PCV 13 05/10/2018 Pneumococcal Polysaccharide PPV23 05/08/2019 ZOSTER LIVE 05/17/2013 Surgical History Surgery Date Site/Laterality Comments THYROID SURGERY HEART SURGERY COLONOSCOPY ESOPHAGOGASTRODUODENOSCOPY BLEPHAROPLASTY Bilateral Medical History Medical History Date Comments COPD (chronic obstructive pulmonary disease) (HC C) HTN (hypertension) LVH (left ventricular hypertrophy) Vitamin D deficiency Dyslipidemia Thyroid cancer (HCC) CAD (coronary artery disease) Thyroid disease BPH (benign prostatic hyperplasia) Motion sickness Peptic ulcer disease Hypothyroidism GERD (gastroesophageal reflux disease) Chronic constipation Hyperlipidemia Myocardial infarction (HCC) Family History Medical History Relation Name Comments Heart disease Brother No Known Problems Father Heart disease Mother Relation Name Status Comments Brother Alive Father Mother Social History Tobacco Use Types Packs/Day Years Used Date Smoking Tobacco: Former Cigarettes 1.5 30 1 949 - 1978 Smokeless Tobacco: Never Tobacco Cessation:Counseling Given: Not Answered Alcohol Use Standard Drinks/Week Comments Never 0 (1 standard drink = 0.6 oz pur e alcohol) AUDIT-C Answer Date Recorded Q1: How often do you have a drink containing alcohol? Never 04/15/2022 Q2: How many drinks containi ng alcohol do you have on a typical day when you are drinking? Patient does not drink Q3: How often do you have si x or more drinks on one occasion? Never 04/15/2022 Overall Financial Resource Strain (CARDIA) Answe r Date Recorded How hard is it for you to pa y for the very basics like food, housing, medical care, and heating? Not hard at all 11/05/2022 PHQ-2 Answer Date Recorded PHQ-2 Total Score (If total score is 3 or more points, staff should administer the PHQ-9) 0 03/25/2024 PRAPARE - Transportation Answer Date Re corded In the past 12 months, has l ack of transportation kept you from medical appointments or from getting medications? No 10/08 In the past 12 months, has l ack of transportation kept you from meetings, work, or from getting things needed for daily living? No 11/05/2022 Housing Stability Vital Sign Answer Naren e Recorded In the last 12 months, was t here a time when you were not able to pay the mortgage or rent on time? No 11/05/2022 Number of Places Lived in the Last Year Not on f ile 11/05/2022 In the last 12 months, was t here a time when you did not have a steady place to sleep or slept in a halfway (including now)? 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 Not on file Not on file Not on file Obstetrics History Last Filed Vital Signs Vital Sign Reading Time Taken Comments Blood Pressure 112/64 03/25/2024 10:20 AM CDT Pulse 74 03/25/2024 10:20 AM CDT Temperature 36.2 C (97.1 F) 03/25/2024 10:20 AM CDT Respiratory Rate 20 03/25/2024 10:20 AM CDT Oxygen Saturation 98% 03/25/2024 10:20 AM CDT Inhaled Oxygen Concentration - - Weight 73 kg (161 lb) 03/25/2024 10:20 AM CDT Height 172.7 cm (5' 8 ) 03/25/2024 10:20 AM CDT Body Mass Index 24.48 03/25/2024 10:20 AM CDT Plan of Treatment Health Maintenance Due Date Last Done Comments DTaP/Tdap/Td Vaccine (1 - Tdap) 01/07/1951 Hepatitis B Screening 1958 Zoster Vaccine (2 of 3) 07/12/2013 05/17/2013 Fall Risk Assessment 04/07/2024 04/07/2023, 11/02/2022, 04/16/2022, Additional history exists Covid-19 Vaccine (2023-2 5 season) 2024 03/03/2024, 03/13/2023, 03/13/2023, Additional history exists Depression Screening 03/25/2025 03/25/2024, 04/07/2023, 04/16/2022, Additional history exists Well Visit 65+ 03/25/2025 03/25/2024, 03/10, 04/16/2022, Additional history exists Pneumococcal vaccine 65+ Completed 05/08/2019, 08/2017 Influenza Vaccine Completed 03/03/2024, , 03/21/2022, Additional history exists Medical Devices Implanted Type Area Slot Service Specialist Device Identifier Shelf Expiration Date Model / Serial / Lot Stents Left: Heart Insurance HUMANA CHOICE MEDICARE PPO HUMANA CHOICE MEDICARE PPO Advance Directives For more information, please contact: [phone] * Full Code (Latest Code Status on File) Date Activated Date Inactivated Comments 10/31/2022 5:27 AM 11/03/2022 5:10 PM * Full Code Date Activated Date Inactivated Comments 04/15/2022 12:09 PM 04/15/2022 9:27 PM Care Teams Biology Tutor Relationship Specialty Start Date End Date Hai Cardoso MD [address] [place] [id number] PCP - General Family Medicine 01/27/19 Calin Belle MD [facility] [address] [place] [address] Consulting Physician Interventional Cardiology 11/28/20 Curt Zapien DO 1418 [facility] MEDICAL ON[facility]OGY, [facility] [address] [place] [address] Medical Oncologist/Staff Interpreter Hematology and Oncology 10/06/22
--- OUTSIDE RECORDS SUMMARY | 2024-09-26 12:59 | XMS_ITS | Data Portability ---
[facility] Organization [facility] Address [address] [place] [address] Care Team Providers Care Apron Operator Name Role Phone CHRISTINE MCCALL Referring Provider Assessment No assessment recorded. Plan of Treatment Reminders Order Date Submit Date Provider Last Modified By Organization Details Last Modified Time Details Appointments None recorded. Lab None recorded. Referral None recorded. Procedures None recorded. Surgeries None recorded. Imaging None recorded. Medication Orders Trulance 3 mg tablet 2020 021 [facility]/Pharmacy #[id number], [address] [place], [address], 11:13:37 Patient TargetsNo targets recorded. Patient Instructions Encounter Date Encounter Id Patient Instructions Last Modified By Organization Details Last Modified Time 06/04/2021 [id number] Take Benefiber 1 TBSP in 8 oz of water with breakfast daily Continue taking MiraLAX, but if still having issues with constipation then increase to twice a day Start taking Trulance 3 mg daily and call the office in 1 week Increase dietary fiber and fluid intake throughout the day [email or web address] Not available 06/04/2021 11:17:46 Reason for Referral None Reported. Problems Name Problem SNOMED Code Status Onset Date Resolution Date Notes Provider Name and Address Organization Details Recorded Time Heartburn 20589347 Active 021 Aliya Lepe [facility] 11:07:25 Problem Notes None recorded. Procedures Surgical History Date Name Laterality Status Provider Name and Address Organization Details Recorded Time 06/08/19 14 Colonoscopy completed Aliya Lepe [place] - [facility] 06/04/2021 10:56:18 06/08/19 14 [facility] 06/04/2021 10:56:32 [facility] 06/04/2021 10:56:54 Imaging Results None recorded. Procedure Notes None recorded. Medical Equipment None Reported. Allergies No known drug allergies Medications Name Sig Start Date Stop Date Status Note LastModified by Organization Details LastModified Time clopidogrel 75 mg tablet Take 1 tablet every day by oral route. active Not Available Not Available No t Available tamsulosin 0.4 mg capsule Take 1 capsule every day by oral route. active Not Available Not Available No t Available irbesartan 150 mg tablet Take 1 tablet every day by oral route. active Not Available Not Available No t Available rosuvastatin 20 mg tablet Take 1 tablet every day by oral route. active Not Available Not Available No t Available rosuvastatin 40 mg tablet Take 1 tablet every day by oral route. active Not Available Not Available No t Available levothyroxin e active 125 MCG Not Available Not Available Not Available nitroglyceri n active 0.4 Not Available Not Available Not Available famotidine active PRN 20 MG Not Available Not Available Not Available isosorbide active mononit er 60 mg Not Available Not Available Not Available Baby Aspirin active prn Not Available Not Available Not Available ranolazine ER 1,000 mg tablet,exten ded release,12 hr Take 1 tablet twice a day by oral route. active Not Available Not Available No t Available Trulance 3 mg tablet 2021 active Not Available Not Available Not Avai lable Vitals Date Recorded Body weight Body mass index (BMI) Body height Heart rate Systolic blood pressure Diastolic blood pressure Provider Name and Address Organization Details Last Updated DateTime 42621.7 g 25.8 kg/m2 172.72 cm 59 /min 164 mm[Hg] 83 mm[Hg] Aliyakayla Lepe [facility] 10:53:46 Social History Question Answer Notes LastModified by Organizat ion Details LastModified Time Tobacco Smoking Status Former Smoker Aliya Lepe [facility] 06/04/2021 10:57:41 What Is Your Level Of Alcohol Consumption? None Information not available 06/04/2021 In The 14 Days Before Symptom Onset, Have You Had Close Contact With A Laboratory-confirm ed COVID-19 While That Case Was Ill? No Information n ot available 06/04/2021 In The 14 Days Before Symptom Onset, Have You Had Close Contact With A Person Who Is Under Investigation For COVID-19 While That Person Was Ill? No Information not available 06/04/2021 Have You Been To An Area Known To Be High Risk For COVID-19? No Information not available 06/04/2021 When Did You Quit Smoking? 16+yearssin celastcidelia ette Information not available 06/04/2021 Do You Smoke? No Information not available 06/04/2021 How Many Years Have You Smoked Tobacco? 30 Information not available 06/04/2021 Do You Or Have You Ever Used Any Other Forms Of Tobacco Or Nicotine? No Information not available 06/04/2021 Sex: Unknown Functional Status None recorded. Mental Status None recorded. Family History Relationship Description Onset Age of this Age Resolved Age Notes LastModified by Organization Details LastModified Time Brother Alcoholism bcantave Not availa ble 06/04/2021 10:58:31 Medical History No medical history recorded. Past Encounters Encounter ID Performer Location Encounter Start Date Encounter Closed Date Diagnosis/Indication Diagnosis SNOMED-CT Code Diagnosis ICD10 Code Diagnosis Note [id number] CHRISTINE MCCALL DO [facility] [address] [facility] [address] [place] [address] 06/04/2021 10:41:45 06/04/2021 11:20:09 Chronic idiopathic constipation 13635847 K59.04 Chronic issue with exacerbati on. He has been having an issue with chronic constipati on with associated abdominal bloating and sometimes abdominal cramps. Currently he is taking Benefiber as well as MiraLAX with little relief. He has been on Linzess 145 mcg in the past with little success. I will have him increase his Benefiber to 1 tablespoon 8 ounce of water with breakfast daily. To continue taking MiraLAX 1 capful in 8 ounces of water daily. I will also give him a prescripti on for Trulance 3 mg to be taken daily. He is to increase his dietary fiber and fluid intake throughout the day. We will plan to see him back in the office in 4 weeks or sooner as needed. Health Concerns Section Related Observation LastModified by Organization Detai ls LastModified Time None Recorded Concern Status LastModified by Organization Details LastModified Time None Recorded Advance Directives Directive None Recorded Payers Encounter Date Sequence Insurance Name Policy Number Policy At[place] Covered Member ID [place] Member ID Guarantor Name 06/04/2021 1 [employer] (MEDICARE REPLACEMENT/ ADVANTAGE - PPO) Ochoa Stanford [id number] Ochoa Stanford Notes Date Note Type Note Provider Name and Address Organization Details Recorded Time 06/04/2021 text/html CORONAVIRUS SCREENING TOOL Are you experiencing any NEW symptom(s) listed below that is not due to another health problem None of the below Is anyone else in your household experiencing any NEW symptoms No In the past 2 weeks did you have close contact (within 6 feet for at least 15 minutes) with someone with symptoms of COVID-19 or who tested positive for COVID-19 No In the past 2 weeks have you been tested for COVID-19 No, I have not been tested Why did you get tested? Please select all that apply N/A In the past 2 weeks has someone in your household tested positive for COVID-19 No Have you ever received a dose of COVID-19 vaccine? Yes Which vaccine product did you receive? Pfizer Imported from [employer] on 06/04/2021Mr. Stanford is an 81 year old male who is here today to establish care. He has been having an issue with constipation for years. He reports that he has a bowel movement every 3-4 days. Has been having left sided abdominal discomfort. He does take MiraLAX twice a day. Also has been having abdominal bloating. He has been on 145 mcg Linzess which did not help much with his symptoms. CHRISTINE MCCALL, [address], [place], [address], [facility] - [facility] 06/04/2021 12:26:59
--- OUTSIDE RECORDS SUMMARY | 2024-09-26 12:59 | XMS_ITS | Encounter Summary ---
Author Organization [facility] Care Team Providers Care Behavior Management Specialist Name Role Phone Hai Cardoso MD Primary Care Provider + Calin Belle MD Unavailable [phone] Curt Zapien DO Unavailable [phone] Thi Lin RN Unavailable [phone] Encounter Details Date Type Department Care Team (Latest Contact Info) Description 08/14/2016 Orders Only [facility] ProviderNeto MD [address] [place] [address] Social History Tobacco Use Types Packs/Day Years Used Date Smoking Tobacco: Never Assessed Sex and Gender Information Value Date Recorded Sex Assigned at Not on file Legal Sex Male 8:08 PM MANAGER CLINICAL INFORMATICS Gender Identity Male 12/25/2022 1:09 PM CDT Sexual Orientation Not on file documented as of this encounter Plan of Treatment Not on file documented as of this encounter Procedures Procedure Name Priority Date/Time Associated Diagnosis Comments PROCEDURE - RESULT 08/08/2016 12 :00 AM MANAGER CLINICAL INFORMATICS documented in this encounter Results * PROCEDURE - RESULT (08/08/2016 12:00 AM MANAGER CLINICAL INFORMATICS) Narrative 08/08/2016 12:00 AM MANAGER CLINICAL INFORMATICS Ordered by an unspecified provider. Historical Provider Final Res ult documented in this encounter Visit Diagnoses Not on filedocumented in this encounter Additional Health Concerns Infection Onset Date Last Indicated Resolved Time COVID: Suspected 10/30/2022 10/30/2022 10/31/2022 12:46 AM CDT documented as of this encounter Care Teams Behavior Management Specialist Relationship Specialty Start Date End Date Hai Cardoso MD [facility] [address] [place], [place] [phone] PCP - General Family Medicine 01/27/19 Calin Belle MD [facility] [address] [place] [address] Consulting Physician Interventional Cardiology 11/28/20 Curt Zapien DO 1418 [facility] MEDICAL ONCOLOGY, [facility] [address] [place], [place] [phone] Medical Oncologist/Vehicle Painter Hematology and Oncology 10/06/22 Thi Lin RN [address] [place] [address] [address] [place] [address] Clay House Worker 11/05/22 12/30/22 documented as of this encounter
--- OUTSIDE RECORDS SUMMARY | 2024-09-26 12:59 | XMS_ITS | Encounter Summary ---
Author Organization [facility] Care Team Providers Care Inside Sales Administrator Name Role Phone Hai Cardoso MD Primary Care Provider + Calin Belle MD Unavailable [phone] Curt Zapien DO Unavailable [phone] Thi Lin RN Unavailable Encounter Details Date Type Department Care Team (Latest Contact Info) Description 08/12/2016 Orders Only [facility] CLINCONV ProviderNeto MD [address] [place] [address] Social History Tobacco Use Types Packs/Day Years Used Date Smoking Tobacco: Never Assessed Sex and Gender Information Value Date Recorded Sex Assigned at Not on file Legal Sex Male 8:08 PM PIPE BOWL PAINT TRIMMER Gender Identity Male 12/25/2022 1:09 PM CDT Sexual Orientation Not on file documented as of this encounter Plan of Treatment Not on file documented as of this encounter Procedures Procedure Name Priority Date/Time Associated Diagnosis Comments PROCEDURE - RESULT 08/13/2016 12 :00 AM PIPE BOWL PAINT TRIMMER documented in this encounter Results * PROCEDURE - RESULT (08/13/2016 12:00 AM PIPE BOWL PAINT TRIMMER) Narrative 08/13/2016 12:00 AM PIPE BOWL PAINT TRIMMER Ordered by an unspecified provider. Historical Provider Final Res ult documented in this encounter Visit Diagnoses Not on filedocumented in this encounter Additional Health Concerns Infection Onset Date Last Indicated Resolved Time COVID: Suspected 10/30/2022 10/30/2022 10/31/2022 12:46 AM CDT documented as of this encounter Care Teams Inside Sales Administrator Relationship Specialty Start Date End Date Hai Cardoso MD [facility] [address] [place], [place] [phone] PCP - General Family Medicine 01/27/19 Calin Belle MD [facility] [address] [place] [address] Consulting Physician Interventional Cardiology 11/28/20 Curt Zapien DO 1418 [facility] MEDICAL ONCOLOGY, [facility] [address] [place], [place] [phone] Medical Oncologist/Community Engagement Representative Hematology and Oncology 10/06/22 Thi Lin RN [address] [place] [address] [address] [place] [address] Cable Coverer 11/05/22 12/30/22 documented as of this encounter
--- OUTSIDE RECORDS SUMMARY | 2024-09-26 12:59 | XMS_ITS | Referral Summary ---
Author Organization [facility] Address [address] [place] [address] Care Team Providers Care Senior Systems Analyst Name Role Phone Hai Cardoso MD Primary Care Provider + Calin Belle MD Unavailable [phone] Curt Zapien DO Unavailable [phone] Encounters Date Type Department Care Team Description 08/25/2024 Telephone [facility] Primary Care [address] [place] [facility] [address] [place] [address] Hai Cardoso MD Med Refill from Last 3 Months Allergies Active Allergy Reactions Criticality Noted Date [...] 1 tablet (150 mcg total) by mouth film numberer before breakfast 90 tablet 3 03/25/20 24 [...] (03/31/2022): Added automatically from request for surgery [id number] Assessment & Plan (10/10/2022 12:26 PM CDT): [...] p.r.n. if the varicosities becomes symptomatic. On intermodal customer service clopidogrel therapy 03/26/2022 Peptic ulcer disease 01/29/2022 Assessment & Plan (10/10/2022 12:26 PM CDT): - uncontrolled sx - increase protonix to 40mg bid to see if sx will improve - if no improvement rec pt f/u with GI Assessment & Plan (01/29/2022 1:42 PM CDT): EGD results from [place] in June 2021 consistent with gastric ulcers, [...] noted on EGD in June 2021 in [place]. Patient was just recently started on pantoprazole [...] in June of 2021 was unremarkable in [place], records reviewed. Patient is taking Benefiber, MiraLax, [...] loss Assessment & Plan (04/16/2022 10:46 AM SUPERVISOR SOUND TECHNICIAN): - Reviewed with the patient BMI, blood pressure, diet, exercise, and encouraged healthy lifestyle choices. - Screened for high risk behaviors, diet and exercise habits, and symptoms of depression. - reviewed screening labs - encouraged regular exercise Assessment & Plan (04/19/2021 2:05 PM SUPERVISOR SOUND TECHNICIAN): - Reviewed with the patient BMI, blood [...] Patient was supposed to follow-up with his ent physician as advised to him and his but [...] medication Assessment & Plan (04/16/2022 10:45 AM SUPERVISOR SOUND TECHNICIAN): - stable - continue current medication Assessment & Plan (04/19/2021 2:04 PM SUPERVISOR SOUND TECHNICIAN): - stable - continue current medication Assessment & Plan (11/06/2020 3:00 PM CDT): - stable - continue flomax Chronic bilateral low back pain without sciatica 11/06/2020 Assessment & Plan (04/07/2023 2:59 PM CDT): - stable - continue current medication Assessment & Plan (04/19/2021 2:04 PM SUPERVISOR SOUND TECHNICIAN): - stable - continue current medication - [...] lab Assessment & Plan (04/16/2022 10:45 AM SUPERVISOR SOUND TECHNICIAN): - stable - continue current medication Assessment & Plan (04/19/2021 2:04 PM SUPERVISOR SOUND TECHNICIAN): - stable - continue current medication Assessment [...] 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 02/26/2016 Overview [...] medication Assessment & Plan (04/16/2022 10:45 AM SUPERVISOR SOUND TECHNICIAN): - stable - continue current medication Assessment & Plan (04/19/2021 2:04 PM SUPERVISOR SOUND TECHNICIAN): - stable - continue current medication Assessment [...] medication Assessment & Plan (04/16/2022 10:45 AM SUPERVISOR SOUND TECHNICIAN): - stable - continue current medication Assessment & Plan (04/19/2021 2:04 PM SUPERVISOR SOUND TECHNICIAN): - stable - continue current medication Essential [...] medication Assessment & Plan (04/16/2022 10:45 AM SUPERVISOR SOUND TECHNICIAN): - stable - continue current medication Assessment & Plan (01/08/2022 3:25 PM CDT): - stable - continue current medication Assessment & Plan (04/19/2021 2:04 PM SUPERVISOR SOUND TECHNICIAN): - stable - continue current medication Assessment [...] medication Assessment & Plan (04/16/2022 10:45 AM SUPERVISOR SOUND TECHNICIAN): - stable - continue current medication Assessment & Plan (01/08/2022 3:25 PM CDT): - stable - continue current medication Assessment & Plan (04/19/2021 2:04 PM SUPERVISOR SOUND TECHNICIAN): - stable - continue current medication Assessment [...] 04/16/2022 Assessment & Plan (04/19/2021 2:18 PM SUPERVISOR SOUND TECHNICIAN): Ceruminosis is noted. Wax is removed by syringing. Instructions for home care to prevent wax buildup are given. Weakness of both lower extremities 03/22/2020 03/23/2024 Bloating 03/09/2020 03/10/2023 Overview (04/01/2021): Patient s/p large weight loss and large diastasis recti. States he would like to see a restaurant hourly manager for his abdominal complaints of constipation, bloating, and some diarrhea on occasional. Ochoa Beckford MD 03/09/2020 12:25 [facility] Dr. Beckford' legal administrative secretary, Seng: [phone] Beeper: [phone] Patient s/p large weight loss and large diastasis recti. States he would like to see a restaurant hourly manager for his abdominal complaints of constipation, bloating, and some diarrhea on occasional. Ochoa Beckford MD 03/09/2020 12:25 PM [facility] Dr. Beckford' legal administrative secretary, Seng: [phone] Beeper: [phone] Ventral hernia 01/30/2020 03/23/2024 Assessment & Plan [...] 02/26/2016 024 Overview (10/14/2018): Normalized on supplementation Immunizations Immunization Administration Dates Next Due COVID-19 mRNA (Qui.lt) 0.3 m L (30 mcg) vaccine (12 [...] Pneumococcal Polysaccharide PPV23 05/08/2019 ZOSTER LIVE 05/17/2013 Social History Tobacco Use Types Packs/Day Years [...] place to sleep or slept in a prison (including now)? 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 Not on file Not on file Not on file Last Filed Vital Signs [...] 03/25/2024 10:20 AM CDT Plan of Treatment Not on file Medical Devices Implanted Type Area Rouge Sifter And Miller Device Identifier Shelf Expiration Date Model / Serial / Lot Stents Left: Heart Insurance [employer] TeamPatent MEDICARE PPO [address] [place] [id number] Advance Directives For more information, please contact: [phone] * Full Code (Latest Code Status on File) Date Activated Date Inactivated Comments 10/31/2022 5:27 AM 11/03/2022 5:10 PM * Full Code Date Activated Date Inactivated Comments 04/15/2022 12:09 PM 04/15/2022 9:27 PM Care Teams Senior Systems Analyst Relationship Specialty Start Date End Date Hai Cardoso MD [address] [place] [phone] PCP - General Family Medicine 01/27/19 Calin Belle MD [address] [place] [phone] Consulting Physician Interventional Cardiology 11/28/20 Curt Zapien DO [address] [place] [address] MEDICAL ONCOLOGY, [facility] [address] [place], [place] [phone] Medical Oncologist/Experimental Rocket Sled Mechanic Hematology and Oncology 10/06/22
--- OUTSIDE RECORDS SUMMARY | 2024-09-26 12:59 | XMS_ITS | Encounter Summary ---
Author Organization [facility] Care Team Providers Care Clip Coater Name Role Phone Hai Cardoso MD Primary Care Provider + Calin Belle MD Unavailable [phone] Curt Zapien DO Unavailable [phone] Thi Lin RN Unavailable Encounter Details Date Type Department Care Team (Latest Contact Info) Description 01/15/2016 Orders Only [facility]IN[facility] ProviderNeto MD [address] [place] [address] Social History Tobacco Use Types Packs/Day Years Used Date Smoking Tobacco: Never Assessed Sex and Gender Information Value Date Recorded Sex Assigned at Not on file Legal Sex Male 8:08 PM SENIOR DATA WAREHOUSE ARCHITECT Gender Identity Male 12/25/2022 1:09 PM CDT Sexual Orientation Not on file documented as of this encounter Plan of Treatment Not on file documented as of this encounter Procedures Procedure Name Priority Date/Time Associated Diagnosis Comments CARDIOLOGY REPORT 01/15/2016 12: 00 AM CDT documented in this encounter Results * CARDIOLOGY REPORT (01/15/2016 12:00 AM CDT) Anatomical Region Laterality Modality Other Narrative 01/15/2016 12:00 AM CDT Ordered by an unspecified provider. Historical Provider [facility] BRANDON CHRIS Final Result documented in this encounter Visit Diagnoses Not on filedocumented in this encounter Additional Health Concerns Infection Onset Date Last Indicated Resolved Time COVID: Suspected 10/30/2022 10/30/2022 10/31/2022 12:46 AM CDT documented as of this encounter Care Teams Clip Coater Relationship Specialty Start Date End Date Hai Cardoso MD [address] [facility] [address] [place], [place] [phone] PCP - General Family Medicine 01/27/19 Calin Belle MD [facility] [address] [place] [address] Consulting Physician Interventional Cardiology 11/28/20 Curt Zapien DO 1418 [facility] MEDICAL ONCOLOGY, [facility] [address] [place] [address] Medical Oncologist/Radio Frequency Engineer Hematology and Oncology 10/06/22 Thi Lin, RN [address] [place] [address] [address] [place] [address] Ruby Software Developer 11/05/22 12/30/22 documented as of this encounter
--- OUTSIDE RECORDS SUMMARY | 2024-09-26 12:59 | XMS_ITS | Encounter Summary ---
Author Organization [facility] Facility Care Team Providers Care Electrical Unit Rebuilder Name Role Phone Hai Cardoso MD Primary Care Provider + Calin Belle MD Unavailable [phone] Curt Zapien DO Unavailable [phone] Thi Lin RN Unavailable Encounter Details Date Type Department Care Team (Latest Contact Info) Description 08/07/2016 Orders Only [facility] ProviderNeto MD [address] [place] [id number] Social History Tobacco Use Types Packs/Day Years Used Date Smoking Tobacco: Never Assessed Sex and Gender Information Value Date Recorded Sex Assigned at Not on file 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 Historical Provider Final Res ult documented in this encounter Visit Diagnoses Not on filedocumented in this encounter Additional Health Concerns Infection Onset Date Last Indicated Resolved Time COVID: Suspected 10/30/2022 10/30/2022 10/31/2022 12:46 AM CDT documented as of this encounter Care Teams Electrical Unit Rebuilder Relationship Specialty Start Date End Date Hai Cardoso MD [facility] [address] [place], [place] [id number] PCP - General Family Medicine 01/27/19 Calin Belle MD [facility] [address] [place] [address] Consulting Physician Interventional Cardiology 11/28/20 Curt Zapien DO [address] [facility], [facility] [address] [place], [place] [id number] Medical Oncologist/Coke Still Cleaner Hematology and Oncology 10/06/22 Thi Lin RN [address] [place] [address] [address] [place] [address] Family Nurse 11/05/22 12/30/22 documented as of this encounter
--- OUTSIDE RECORDS SUMMARY | 2024-09-26 13:00 | XMS_ITS | Clinical Summary ---
Author Organization [facility] Address [address] [place] [address] Care Team Providers Care Test Hole Driller Name Role Phone Hai Cardoso MD Primary Care Provider [phone] Allergies No known active allergies Medications clopidogrel 75 MG tablet Take 75 mg by mouth daily. 0 Active ipratropium-alb uterol 0.5-2.5 (3) MG/3ML Solution Take 3 mLs by nebulization every 6 (six) hours as needed. 0 Active SYNTHROID 125 MCG tablet Take 125 mcg by mouth daily. 1 Active ranolazine ER 1000 MG TABLET SR 12 HR 12 hr tablet Take 1,000 mg by mouth 2 (two) times daily. 1 Active rosuvastatin 20 MG tablet Take 20 mg by mouth daily. 1 Active tamsulosin 0.4 MG Cap Take 0.4 mg by mouth 2 (two) times daily. 1 Active tiotropium (SPIRIVA HANDIHALER) [address] 1 capsule into inhaler and inhale daily. 2 Active linaCLOtide 145 MCG capsule Take 145 mcg by mouth daily. 1 Active isosorbide mononitrate ER 60 MG 24 hr tablet Take 120 mg by mouth daily. 1 Active aspirin EC (ASPIRIN EC) 81 MG tablet Take 81 mg by mouth daily. Active Active Problems Problem Noted Date Diagnosed Date Weakness 10/23/2020 Family History Medical History Relation Comments Heart Disease Brother Arminda Gehrig's disease Father Heart Disease Mother Relation Status Comments Brother Father Mother Social History Tobacco Use Types Packs/Day Years Used Date Smoking Tobacco: Former Smokeless Tobacco: Never Alcohol Use Standard Drinks/Week Comments Not Currently 0 (1 standard drink = 0.6 oz pur e alcohol) Sex and Gender Information Value Date Recorded Sex Assigned at Not on file Legal Sex Male 11:10 PM CDT Gender Identity Not on file Sexual Orientation Not on file Last Filed Vital Signs Vital Sign Reading Time Taken Comments Blood Pressure 106/60 10/25/2020 3:29 PM CDT Pulse 55 10/25/2020 3:29 PM CDT Temperature 36.2 C (97.2 F) 10/25/2020 3:29 PM CDT Respiratory Rate 18 10/25/2020 3:29 PM CDT Oxygen Saturation 97% 10/25/2020 3:29 PM CDT Inhaled Oxygen Concentration - - Weight 77.5 kg (170 lb 12.8 oz) 10/25/2020 3:11 AM CDT Height 172.7 cm (5' 8 ) 10/22/2020 10:0 0 PM CDT Body Mass Index 25.97 10/22/2020 10:00 PM CDT Plan of Treatment Health Maintenance Due Date Last Done Comments DTaP, Tdap and Td Vaccines ( 1 - Tdap) 01/07/1959 Annual Medicare Wellness Visit 2006 Zoster Vaccines (2 of 3) 07/12/2013 05/17/2013 RSV Immunization or 60+ Years (1 - 1-dose 75+ series) 01/07/2016 COVID-19 Vaccine (2023-2 5 season) 2024 Pneumococcal Vaccine: 50+ Years Completed 05/08/2019, 05/10/2018 Meningococcal B Vaccine Aged Out No l onger eligible based on patient's age to complete this topic Meningococcal Vaccine Aged Out No deidra adrián eligible based on patient's age to complete this topic RSV Immunizations Under 20 Months Aged Out No longer eligible b ased on patient's age to complete this topic Insurance [employer] Advance Directives * Full Code (Latest Code Status on File) Date Activated Date Inactivated Comments 10/23/2020 2:12 AM 10/25/2020 6:38 PM Care Teams Test Hole Driller Relationship Specialty Start Date End Date Hai Cardoso MD PCP - General FAMILY PRACTICE 10/22/20
--- OUTSIDE RECORDS SUMMARY | 2024-09-26 13:00 | XMS_ITS | Data Portability ---
Author Organization [facility] JENNIFERJose R Address [address] [place] [address] Assessment Encounter Date Assessment Date Assessment LastModified by Organization Details LastModified Time 09/28/2023 09/28/2023 Labs done on 09/06 sodium 137 potassium 4.0, chloride 105, carbon 28, BUN 16, creatinine 0.7, glucose 94, calcium 9.2, phosphorus 3.3, total bili 1.1, AST 20, ALT 11, total protein 7, albumin 4.1, triglycerides 76, cholesterol 145, directly measured LDL 77, HDL 53, white blood cell count 5400, hemoglobin 12.1, platelet count 137,000 labs completed on 03/23/2023 WBC 4.7, Hgb 13.0, Platelets 164, Sodium 138, Potassium 4.7, Chloride 103, Co2 27, BUN 18, Creatinine 0.80, Glucose 79, Calcium 9.3, Bilirubin 0.5, Protein 6.5, Albumin 4.3, Alk phos 56, ALT 9, AST 16 Labs completed on 12/19/2019 Cholesterol 93, HDL 51, LDL 30, Trig 58 ECG on 03/20/2023 shows sinus bradycardia rate of 59 beats minute, first-degree AV block, left bundle-branch block, compared to the previous study which was last done on December 19, 2019, QRS duration has widened left bundle-branch block is now present the OR interval has lengthened ASSESSMENT CAD (coronary artery disease) - I25.10, Status post myocardial infarction in 1997 with an OM stent implanted Cypher stent in the RCA on 08/14/2005 and Cypher stent in the OM branch in the area of in stent restenosis on 06/10/2010 with NSTEMI was xience stent to the mid RCA on 10/13/2011 stent thrombosis of the Cypher stent in the LCx treated with thrombectomy and Promus drug eluding stent in the LCx/OM on 07/22/2013 and 40-50% LMCA stenosis with four-vessel CABG in [place] 10/23/2014 with repeat catheterization on 08/18/2017 showing 30-40% left main coronary artery stenosis, a patent small HU to the LAD, occluded left circumflex artery with patent saphenous vein graft to the marginal branch and minimal disease in the right coronary artery. 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 Patent coronary arteries on catheterization done on 09/16/2017 with patent bypasses. Exertional chest pain likely due to microvascular disease and not macrovascular disease, improved with increasing his ranexa and changing his imdur to once daily to avoid tachyphylaxis but he still has some exertional chest pain, despite revascularization has never gone away. Most consistent with microvascular disease recent stress test just done on 12/02/2021 shows no ischemia. Somewhat improved with the addition of amlodipine and Protonix to his medical regimen. 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 Matute Macrocytosis - D75.89, , B12 and folate red blood cells normal, he tells me he is not drinking very much, recommend referral to Hematology Hiatal hernia/GERD on Protonix may be contributing to his symptoms of chest pain. 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 History of gastric ulcers back in August of 2021 and [place], so off aspirin and on Plavix Hyponatremia improved with reducing the spironolactone from 25 mg to 12.5 mg daily ROXANNA-inhibitor cough Plan - I recommend healthy diet which is low in fat, low in cholesterol and low in sodium. I asked him to continue to exercise with his treadmill here now that he is back in [place]. Since he is having difficulty splitting the spironolactone and taking 12.5 mg every day I told him just to take 25 mg a whole tablet every other day and continue his rosuvastatin 40 mg daily, Ranexa 1000 mg p.o. b.i.d., Imdur 120 mg daily, furosemide 20 mg p.o. daily p.r.n., Plavix 75 mg daily and nitroglycerin p.r.n. sublingual. I asked him to obtain a fasting lipid profile, complete metabolic profile and a CBC prior to follow-up visit.. I asked him to return sooner if he has any cardiac issues or problems. CARDIOLOGY TESTING ECHOCARDIOGRAM done at [facility] on 10/23/2020 which showed normal left ventricular cavity size normal left ventricular systolic function with an ejection fraction of 55-60% with mildly dilated right atrium agitated saline showed no clear evidence of shunting in the left atrium consistent with no patent foramen ovale, mild calcification of the aortic valve leaflets moderate mitral regurgitation, moderate tricuspid regurgitation, RV systolic pressure was 70- 80 mm of mercury suggestive of severe pulmonary hypertension. ECHOCARDIOGRAM 04/23/15 left ventricle systolic function is normal, ef 50-55%, mild Concentric left ventricular hypertrophy, left atrium is mildly dilated, mild mitral valve regurgitation, mild tricuspid valve regurgitation, right ventricle systolic pressure is 49-54mmhg, mild to moderate pulmonary hypertension, mild Aortic valve regurgitation, mild pulmonic valvular regurgitation, diastolic dysfunction grade 2 ECHOCARDIOGRAM 07/26/14 left ventricle chamber and wall dimensions are normal, estimated left ventricle ef is 40-45%, mild av sclerosis without significant stenosis, trivial Aortic valve regurgitation, trace mitral valve regurgitation, small circumferential pericardial effusion MYOVIEW STRESS TEST 12/02/21.No significant Lexiscan induced ischemic EKG changes.Study was well tolerated. No evidence of ischemia in the left ventricle. Inferior subdiaphragmatic attenuation artifact noted, most pronounced in the resting supine image, less so in the stress supine image and nearly none seen in the prone stress image as the inferior wall nearly completely normalizes consistent with subdiaphragmatic attenuation artifact.Normal left ventricular cavity size, wall motion, TID index and LVEF of 68%. Compared to the previous study which was last done on 04/11/2016, there was no evidence of ischemia in left ventricle. There was inferior and inferolateral defect, which was most pronounced at rest and less so with stress consistent with subdiaphragmatic attenuation similar to the current study. The LVEF is 68% on the study and was 71% on that study, so there is no significant change. STRESS TEST Myoview 04/11/2016 normal ECG portion of treadmill Myoview stress test patient walked a total of 7 minutes into standard Alonzo protocol achieving 87% of his age-predicted maximal heart rate reoccurrence of that sharp left-sided chest pain with exertion and relieved at rest some isolated PVCs and rare PVC couplet early and exercise as well as late exercise he had some PACs with PAC couplet all of which were asymptomatic normal blood pressure with appropriate blood pressure response to exercise normal chronotropic response to exercise increase indoor 60 mg p.o. q.a.m. no evidence of ischemia of the left ventricle small fixed basal inferior lateral defect with normal wall motion most likely represents artifact with normal wall motion in that territory normal left ventricular cavity size wall motion and calculated LVEF was 71% STRESS TEST MYOVIEW: 08/09/14 normal ecg, exercise limiting angina or anginal equivalent occurred, exercise capacity was adequate, occasional pvc's occurred, evidence of inducible ischemia, normal left ventricle systolic function, small defect in the basal inferolateral wall which is completely reversible consistent with ischemia, regional wall motion appears normal STRESS TEST 04/29/10 Test is positive for exercise induced ischemic ECG changes. Nuclear scan revealed a small area of inferolateral infarction with mild ischemia. CARDIAC CATHETERIZATION 08/16/14 moderate left main coronary artery with 40-50% stenosis by angiography, widely patent stents in the mid right coronary artery, the 1st obtuse marginal branch, no aortic stenosis, Aortic Insufficiency or mitral valve regurgitation, mildly elevated left heart filling pressures, pressure wire assessment of the left main coronary artery, the left anterior descending and the Left circumflex artery demonstrated non-hemodynamically significant stenosis CARDIAC CATHETERIZATION 10/13/11. Severe single-vessel coronary artery disease involving the right coronary artery which was successfully treated with a Xience V 3.5 x 23 mm stent. This stent actually overlapped the previously placed right coronary artery stent , which was placed in 2005 reducing the 90% stenosis down to 0% residual stenosis. Mild 40% stenosis in the left main coronary artery unchanged from previous cardiac catheterization. High grade stenosis in a small diagonal branch, with 80-90% stenosis However has no symptoms when he had just this lesion, and its a small vessel. So will continue to treat medically. Widely patent mid right coronary artery stent and obtuse marginal stent. Moderate lateral ventricular and posterior descending coronary artery stenosis. Mild left ventricular systolic dysfunction with mid and distal inferior wall hypokinesis. No significant aortic stenosis or mitral regurgitation noted. CARDIAC CATHETERIZATION 06/10/10 mild left main coronary artery stenosis, with high grade first diagonal branch stenosis which will be treated medically, high grade stenosis in an obtuse marginal branch just proximal and involving a previously placed stent which was treated successfully with a cypher 2.5x18mm stent, post dilated to 2.75mm, widely patent right coronary artery stent with just mild stent in the posterolateral ventricular branch stenosis and minimal disease in the left anterior descending coronary artery, right coronary dominance, no significant aortic stenosis or mitral valve regurgitation noted, systemic arterial hypertension, with aortic pressure of 148/75mmhg, moderate diastolic dysfunction as evidenced by a moderately elevated left ventricle end diastolic pressure of 20mmhg, normal left ventricle cavity size and wall motion, overall normal left ventricle systolic ef of 55-60% CHEST CT: 07/28/13 density reading between the noncontrast ct and the regular ct scan with contrast is approximately 125 hounsfield units which would be most consistent with some calcification within this nodule, while there is a vessel lying close to it the lack of significant enhancement makes an arteriovenous malformation less likely, calcifications would be extremely rare in an arteriovenous malformation according to the literature, possibility of hamartoa less likely an impacted partly calcified peripheral bronchus CTA CHEST: 06/07/10 no acute process visualized within the chest, abdomen or pelvis, bilobed nodule within the right lower lobe, differential considerations include neoplasm, mucoid impaction or granulomatous/inflamma tory process, recommend correlation with previous chest cts if available, if no prior exams are available recommend repeat chest ct evaluation in 6 months, nonspecific borderline mediastinal and hilar lymphadenopathy, stable nonobstructing left renal stone, scattered colonic diverticula. Not available 09/28/2023 14:36:50 03/29/2024 03/29/2024 LABS: 03/22/24. Sodium 135, potassium 4.5, chloride 100, carbon dioxide 30, BUN 12, creatinine 0.90, EGFR> 60, glucose 90, calcium 8.9, bilirubin 1.0, AST 21, ALT 11, protein 7.0, albumin 3.9, triglycerides 85, cholesterol 139, direct LDL 59, direct HDL 46, alkaline phosphate 46, WBC 4.8, hemoglobin 12.6, platelets 140. Labs done on 09/19/2023 sodium 137 potassium 4.0, chloride 105, carbon 28, BUN 16, creatinine 0.7, glucose 94, calcium 9.2, phosphorus 3.3, total bili 1.1, AST 20, ALT 11, total protein 7, albumin 4.1, triglycerides 76, cholesterol 145, directly measured LDL 77, HDL 53, white blood cell count 5400, hemoglobin 12.1, platelet count 137,000 Labs completed on 03/23/2023 WBC 4.7, Hgb 13.0, Platelets 164, Sodium 138, Potassium 4.7, Chloride 103, Co2 27, BUN 18, Creatinine 0.80, Glucose 79, Calcium 9.3, Bilirubin 0.5, Protein 6.5, Albumin 4.3, Alk phos 56, ALT 9, AST 16 Labs completed on 12/19/2019 Cholesterol 93, HDL 51, LDL 30, Trig 58 ECG on 03/29/2024 shows sinus rhythm with rate of 61 beats per minute, first-degree AV block, frequent isolated PACs, left bundle-branch block, compared to the previous EKG which was last done on 03/20/2023, PACs are now seen. ASSESSMENT CAD (coronary artery disease) - I25.10, Status post myocardial infarction in 1997 with an OM stent implanted Cypher stent in the RCA on 08/14/2005 and Cypher stent in the OM branch in the area of in stent restenosis on 06/10/2010 with NSTEMI was xience stent to the mid RCA on 10/13/2011 stent thrombosis of the Cypher stent in the LCx treated with thrombectomy and Promus drug eluding stent in the LCx/OM on 07/22/2013 and 40-50% LMCA stenosis with four-vessel CABG in [place] 10/23/2014 with repeat catheterization on 08/18/2017 showing 30-40% left main coronary artery stenosis, a patent small HU to the LAD, occluded left circumflex artery with patent saphenous vein graft to the marginal branch and minimal disease in the right coronary artery. 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 Patent coronary arteries on catheterization done on 09/16/2017 with patent bypasses. Exertional chest pain likely due to microvascular disease and not macrovascular disease, improved with increasing his ranexa and changing his imdur to once daily to avoid tachyphylaxis but he still has some exertional chest pain, despite revascularization has never gone away. Most consistent with microvascular disease recent stress test just done on 12/02/2021 shows no ischemia. Somewhat improved with the addition of amlodipine, imdur and Protonix to his medical regimen. 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 Matute Macrocytosis - D75.89, , B12 and folate red blood cells normal, he tells me he is not drinking very much, recommend referral to Hematology Hiatal hernia/GERD on Protonix may be contributing to his symptoms of chest pain. 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 History of gastric ulcers back in August of 2021 and [place], so off aspirin and on Plavix Hyponatremia improved with reducing the spironolactone from 25 mg to 12.5 mg daily ROXANNA-inhibitor cough Plan - I recommend healthy diet which is low in fat, low in cholesterol and low in sodium. I asked him to continue to exercise with his exercise bike. I asked him to continue spironolactone 25 mgs qod, rosuvastatin 40 mg daily, Ranexa 1000 mg p.o. b.i.d., Imdur 120 mg Qam, furosemide 20 mg p.o. daily p.r.n edema., Plavix 75 mg daily and nitroglycerin p.r.n. sublingual. I asked him to obtain a fasting lipid profile, complete metabolic profile and a CBC prior to follow-up visit.. I asked him to return sooner if he has any cardiac issues or problems. CARDIOLOGY TESTING ECHOCARDIOGRAM done at [facility] on 10/23/2020 which showed normal left ventricular cavity size normal left ventricular systolic function with an ejection fraction of 55-60% with mildly dilated right atrium agitated saline showed no clear evidence of shunting in the left atrium consistent with no patent foramen ovale, mild calcification of the aortic valve leaflets moderate mitral regurgitation, moderate tricuspid regurgitation, RV systolic pressure was 70- 80 mm of mercury suggestive of severe pulmonary hypertension. ECHOCARDIOGRAM 04/23/15 left ventricle systolic function is normal, ef 50-55%, mild Concentric left ventricular hypertrophy, left atrium is mildly dilated, mild mitral valve regurgitation, mild tricuspid valve regurgitation, right ventricle systolic pressure is 49-54mmhg, mild to moderate pulmonary hypertension, mild Aortic valve regurgitation, mild pulmonic valvular regurgitation, diastolic dysfunction grade 2 ECHOCARDIOGRAM 07/26/14 left ventricle chamber and wall dimensions are normal, estimated left ventricle ef is 40-45%, mild av sclerosis without significant stenosis, trivial Aortic valve regurgitation, trace mitral valve regurgitation, small circumferential pericardial effusion MYOVIEW STRESS TEST 12/02/21.No significant Lexiscan induced ischemic EKG changes.Study was well tolerated. No evidence of ischemia in the left ventricle. Inferior subdiaphragmatic attenuation artifact noted, most pronounced in the resting supine image, less so in the stress supine image and nearly none seen in the prone stress image as the inferior wall nearly completely normalizes consistent with subdiaphragmatic attenuation artifact.Normal left ventricular cavity size, wall motion, TID index and LVEF of 68%. Compared to the previous study which was last done on 04/11/2016, there was no evidence of ischemia in left ventricle. There was inferior and inferolateral defect, which was most pronounced at rest and less so with stress consistent with subdiaphragmatic attenuation similar to the current study. The LVEF is 68% on the study and was 71% on that study, so there is no significant change. STRESS TEST Myoview 04/11/2016 normal ECG portion of treadmill Myoview stress test patient walked a total of 7 minutes into standard Alonzo protocol achieving 87% of his age-predicted maximal heart rate reoccurrence of that sharp left-sided chest pain with exertion and relieved at rest some isolated PVCs and rare PVC couplet early and exercise as well as late exercise he had some PACs with PAC couplet all of which were asymptomatic normal blood pressure with appropriate blood pressure response to exercise normal chronotropic response to exercise increase indoor 60 mg p.o. q.a.m. no evidence of ischemia of the left ventricle small fixed basal inferior lateral defect with normal wall motion most likely represents artifact with normal wall motion in that territory normal left ventricular cavity size wall motion and calculated LVEF was 71% STRESS TEST MYOVIEW: 08/09/14 normal ecg, exercise limiting angina or anginal equivalent occurred, exercise capacity was adequate, occasional pvc's occurred, evidence of inducible ischemia, normal left ventricle systolic function, small defect in the basal inferolateral wall which is completely reversible consistent with ischemia, regional wall motion appears normal STRESS TEST 04/29/10 Test is positive for exercise induced ischemic ECG changes. Nuclear scan revealed a small area of inferolateral infarction with mild ischemia. CARDIAC CATHETERIZATION 08/16/14 moderate left main coronary artery with 40-50% stenosis by angiography, widely patent stents in the mid right coronary artery, the 1st obtuse marginal branch, no aortic stenosis, Aortic Insufficiency or mitral valve regurgitation, mildly elevated left heart filling pressures, pressure wire assessment of the left main coronary artery, the left anterior descending and the Left circumflex artery demonstrated non-hemodynamically significant stenosis CARDIAC CATHETERIZATION 10/13/11. Severe single-vessel coronary artery disease involving the right coronary artery which was successfully treated with a Xience V 3.5 x 23 mm stent. This stent actually overlapped the previously placed right coronary artery stent , which was placed in 2005 reducing the 90% stenosis down to 0% residual stenosis. Mild 40% stenosis in the left main coronary artery unchanged from previous cardiac catheterization. High grade stenosis in a small diagonal branch, with 80-90% stenosis However has no symptoms when he had just this lesion, and its a small vessel. So will continue to treat medically. Widely patent mid right coronary artery stent and obtuse marginal stent. Moderate lateral ventricular and posterior descending coronary artery stenosis. Mild left ventricular systolic dysfunction with mid and distal inferior wall hypokinesis. No significant aortic stenosis or mitral regurgitation noted. CARDIAC CATHETERIZATION 06/10/10 mild left main coronary artery stenosis, with high grade first diagonal branch stenosis which will be treated medically, high grade stenosis in an obtuse marginal branch just proximal and involving a previously placed stent which was treated successfully with a cypher 2.5x18mm stent, post dilated to 2.75mm, widely patent right coronary artery stent with just mild stent in the posterolateral ventricular branch stenosis and minimal disease in the left anterior descending coronary artery, right coronary dominance, no significant aortic stenosis or mitral valve regurgitation noted, systemic arterial hypertension, with aortic pressure of 148/75mmhg, moderate diastolic dysfunction as evidenced by a moderately elevated left ventricle end diastolic pressure of 20mmhg, normal left ventricle cavity size and wall motion, overall normal left ventricle systolic ef of 55-60% CHEST CT: 07/28/13 density reading between the noncontrast ct and the regular ct scan with contrast is approximately 125 hounsfield units which would be most consistent with some calcification within this nodule, while there is a vessel lying close to it the lack of significant enhancement makes an arteriovenous malformation less likely, calcifications would be extremely rare in an arteriovenous malformation according to the literature, possibility of hamartoa less likely an impacted partly calcified peripheral bronchus CTA CHEST: 06/07/10 no acute process visualized within the chest, abdomen or pelvis, bilobed nodule within the right lower lobe, differential considerations include neoplasm, mucoid impaction or granulomatous/inflamma tory process, recommend correlation with previous chest cts if available, if no prior exams are available recommend repeat chest ct evaluation in 6 months, nonspecific borderline mediastinal and hilar lymphadenopathy, stable nonobstructing left renal stone, scattered colonic diverticula. Not available 03/29/2024 14:36:58 Plan of Treatment Reminders Order Date Submit Date Provider Last Modified By Organization Details Last Modified Time Details Appointments ANY 15 2024 01:00P Jesica Belle MD Not available Not available Not available Lab lipid panel, serum 2023 025 [facility], [address] [place] [address], [address], 09/26/2024 08:50:29 CMP, serum or plasma 2023 025 [facility], [address] [place] [address] [address], [address], 09/26/2024 08:50:29 CBC 2023 025 [facility], [address], [address], 09/26/2024 08:50:29 lipid panel, serum 2023 024 [facility], [address] [facility] [address], [address], 04/04/2024 07:45:06 CMP, serum or plasma 2023 024 [facility], [address] [facility] [address], [place], [address], 04/04/2024 07:45:06 CBC 2023 024 [facility], [facility] [address], [address], 03/28/2024 11:39:47 Referral None record ed. Procedures None record ed. Surgeries None record ed. Imaging electr ocardi ogram 2023 [facility] In-Office Order, Internal Use Only DO Not Attach Compendium DO Not Attach Compendium, Do Not Delete/merge, [id number] 03/30/2024 09:41:50 Medication Orders clopid ogrel 75 mg tablet 2023 [facility] #[id number], [address] [place], [address], 03/29/2024 14:37:28 nitrog lyceri n 0.4 mg sublin gual tablet 2023 [facility] #[id number], [address] [place], [address], 03/29/2024 14:37:28 rosuva statin 40 mg tablet 2023 024 [facility] #[id number], [address] [place], [address], 03/29/2024 14:37:28 Patient TargetsNo targets recorded. Patient InstructionsNo instructions recorded. Reason for Referral None Reported. Results Created Date Observation Date Name Description Value Unit Range Abnormal Flag Note LastModifiedBy Organization Detail LastModifiedTime 03/29/2003/29/2024 kishore parker am No observ ation record ed. [facility] In-Office Order Internal Use Only DO Not Attach Compendium DO Not Attach Compendium, Do Not Delete/merge, [id number] 03/29/2024 14:41:03 03/29/20 [facility] suzanne parker am No observ ation record ed. [email or web address] Not Available 03/29 14:41:03 Result Notes None recorded. 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 7859776819078 03 Active 2023 Calin Belle MD Attn: Kyle abarca,[address] [facility], [place], [address], [place] - [facility] 4 14:36:56 Essential hypertensio n 82648582 Active 2023 Calin Belle MD Attn: Kyle abarca,[address] [facility], [place], [address], [place] [facility] 4 14:36:58 Diastolic dysfunction 5885084 Active 2023 Calin Belle MD Attn: Kyle abarca,[address] [place], [address], [place] [facility] 4 14:37:00 Tricuspid valve regurgitati on 649744625 Active 2023 Calin Belle MD Attn: Kyle abarca,[address] [facility], [place], [address], [facility] - SI 4 14:37:01 Non-rheumat ic mitral regurgitati on 548512424 Active 2023 Calin Belle MD Attn: Kyle abarca,[address] [facility], [place], [address], [place] - [facility] 4 14:37:02 Problem Notes None recorded. Procedures Surgical History None recorded. Imaging Results Imaging Date Name Status LastModified by Organization Details LastModified Time 03/29/2024 electrocardiogram completed [facility] In-Offi ce Order Internal Use Only DO Not Attach Compendium DO Not Attach Compendium, Do Not Delete/merge, [id number] 03/29/2024 14:41:03 03/29/2024 electrocardiogram completed [email or web address] Informa tion not available 03/29/2024 14:41:03 Procedure Notes None recorded. Medical Equipment None Reported. Allergies Allergen ID Allergen Name Allergen Category Reaction Reaction Severity Criticality Documentation Date Start Date Code Code System Note Provider Name and Address Organization Details Recorded Time 572515 lisinopri l medicatio n Not available Not available Not available 03/29/2024 74467 RxNorm Not Available Not Available Not Available Medications Name Sig Start Date Stop Date Status Note LastModified by Organization Details LastModified Time levothyroxi ne 137 mcg tablet TAKE 1 TABLET BY MOUTH EVERY DAY 03/29 completed Not Available Not Available Not Available doxycycline hyclate 100 mg capsule TAKE 1 CAPSULE BY MOUTH TWICE A DAY FOR 7 DAYS 03/29 completed Not Available Not Available Not Available ipratropium 0.5 mg-albutero l 3 mg (2.5 mg base)/3 mL nebulizatio n soln INHALE 3 ML VIA NEBULIZER 4 TIMES A DAY NEEDED FOR SHORTNESS OF BREATH OR FOR WHEEZING active Not Available Not Available No t Available azithromyci n 250 mg tablet TAKE 2 TABLETS BY MOUTH TODAY, THEN TAKE 1 TABLET DAILY FOR 4 DAYS 03/29 completed Not Available Not Available Not Available prednisone 20 mg tablet TAKE 1 TABLET BY MOUTH DAILY FOR 7 DAYS. 03/29 completed Not Available Not Available Not Available clopidogrel 75 mg tablet Take 1 tablet every day by oral route. active Not Available Not Available No t Available spironolact one 25 mg tablet TAKE 1/2 TABLET DAILY BY MOUTH active Not Available Not Available No t Available amoxicillin 500 mg tablet TAKE 1 TABLET 3 TIMES A DAY FOR 7 DAYS 03/29 completed Not Available Not Available Not Available isosorbide mononitrate ER 60 mg tablet,exte nded release 24 hr TAKE 2 TABLETS BY MOUTH EVERY DAY active Not Available Not Available No t Available Kristalose 10 gram oral packet TAKE 1 PACKET (10 G TOTAL) BY MOUTH DAILY 03/29 completed Not Available Not Available Not Available famotidine 20 mg tablet TAKE 1 TABLET BY MOUTH 2 TIMES A DAY FOR 14 DAYS. 03/29 completed Not Available Not Available Not Available tamsulosin 0.4 mg capsule TAKE 2 CAPSULES BY MOUTH EVERY DAY active Not Available Not Available No t Available pantoprazol e 40 mg tablet,sukhdeep yed release TAKE 1 TABLET BY MOUTH EVERY DAY active Not Available Not Available No t Available levothyroxi ne 150 mcg tablet TAKE 1 TABLET (150 MCG TOTAL) BY MOUTH LOADING SUPERVISOR BEFORE BREAKFAST active Not Available Not Available No t Available nitroglycer in 0.[address] 1 TABLET UNDER TONGUE EVERY 5 MINS, UP TO 3 DOSES NEEDED FOR CHEST PAIN active Not Available Not Available No t Available albuterol sulfate HFA 90 mcg/actuati on aerosol inhaler TAKE 2 PUFFS BY MOUTH EVERY 6 HOURS NEEDED FOR WHEEZE active Not Available Not Available No t Available cefdinir 300 mg capsule TAKE 1 CAPSULE (300 MG TOTAL) BY MOUTH 2 (TWO) TIMES A DAY FOR 1 DAY 03/29 completed Not Available Not Available Not Available finasteride 5 mg tablet TAKE 1 TABLET (5 MG TOTAL) BY MOUTH DAILY. active Not Available Not Available No t Available metoclopram madan 10 mg tablet TAKE 1 TABLET BY MOUTH 4 TIMES A DAY BEFORE MEALS AND NIGHTLY 03/29 completed Not Available Not Available Not Available rosuvastati n 20 mg tablet TAKE 1 TABLET BY MOUTH EVERY DAY 03/29 completed Not Available Not Available Not Available rosuvastati n 40 mg tablet Take 1 tablet every day by oral route. active Not Available Not Available No t Available Spiriva with HandiHaler 18 mcg and inhalation capsules INHALE 1 CAPSULE VIA HANDIHALE R ONCE DAILY AT THE SAME TIME EVERY DAY active Not Available Not Available No t Available ranolazine ER 1,000 mg tablet,exte nded release,12 hr Take 1 tablet twice a day by oral route. active Not Available Not Available No t Available levocetiriz ine 5 mg tablet TAKE 1 TABLET (5 MG TOTAL) BY MOUTH DAILY. 03/29 completed Not Available Not Available Not Available Breztri Aerosphere 160 mcg-9mcg-4. 8mcg/actuat ion HFA aerosol inhaler INHALE 2 PUFFS BY MOUTH EVERY 12 HOURS. active Not Available Not Available No t Available Vitals Date Recorded Body height Body mass index (BMI) Body weight Heart rate Respiratory rate Oxygen saturation Oxygen saturation in Arterial blood by Pulse oximetry Systolic blood pressure Diastolic blood pressure Provider Name and Address Organization Details Last Updated DateTime 4 172.72 cm 24.8 kg/m2 17808.2 7 g 78 /min 18 /min 98 % 98 % 120 mm[Hg] 58 mm[Hg] Aman arcos MA [facility] 14:00:27 Date Recorded Body height Body mass index (BMI) Body weight Heart rate Oxygen saturation Oxygen saturation in Arterial blood by Pulse oximetry Systolic blood pressure Diastolic blood pressure Provider Name and Address Organization Details Last Updated DateTime 4 172.72 cm 24.5 kg/m2 46020.3 7 g 76 /min 95 % 95 % 126 mm[Hg] 62 mm[Hg] Chris Cedillo MA [facility] 4 14:10:50 Social History Question Answer Notes LastModified by Organizat ion Details LastModified Time Tobacco Smoking Status Never Smoker Aman Larson MA null, [facility] 09/28/2023 13:58:36 What Was The Date Of Your Most Recent Tobacco Screening? 03/29/2024 Information not available 03/29/2024 Do You Use Any Illicit Or Recreational Drugs? No Information not available 03/29/2024 Do You Or Have You Ever Used Any Other Forms Of Tobacco Or Nicotine? No Information not available 03/29/2024 Sex: Unknown Functional Status None recorded. Mental Status None recorded. Family History Nothing Reported. Medical History No medical history recorded. Past Encounters Encounter ID Performer Location Encounter Start Date Encounter Closed Date Diagnosis/Indication Diagnosis SNOMED-CT Code Diagnosis ICD10 Code Diagnosis Note [id number] Calin Belle MD [facility] [place] [facility] [address] [place] [address] 09/28/2023 13:51:48 09/29/2023 10:09:12 Essential hypertension 63540931 I10 Atheroscle rosis of coronary artery without angina pectoris 8577611769 88666 I25.10 Left bundl e branch block 72459829 I44.7 Pure hypercholesterolemia 814480953 E78.00 Diastolic dysfunction 35 81941 I51.9 Tricuspid valve regurgitation 487518547 I07.1 Non-rheuma tic mitral regurgitation 180657635 I34.0 Long-term current use of antiplatelet drug 2174657050 61988 Z79.02 [id number] Calin Belle MD [facility] [place] [facility] [address] [place] [address] 03/29/2024 13:47:14 03/30/2024 09:41:50 Essential hypertension 51365745 I10 Atheroscle rosis of coronary artery without angina pectoris 1537060915 38603 I25.10 Diastolic dysfunction 35 07381 I51.9 Left bundl e branch block 50235447 I44.7 Non-rheuma tic mitral regurgitation 667333920 I34.0 Pure hypercholesterolemia 697306922 E78.00 Tricuspid valve regurgitation 806335959 I07.1 Long-term current use of antiplatelet drug 0148348393 14854 Z79.02 Health Concerns Section Related Observation LastModified by Organization Detai ls LastModified Time None Recorded Concern Status LastModified by Organization Details LastModified Time None Recorded Advance Directives Directive None Recorded Payers Encounter Date Sequence Insurance Name Policy Number Policy [place] Covered Member ID [place] Member ID Guarantor Name 09/28/2023 1 [employer] (MEDICARE REPLACEMENT/ ADVANTAGE - PPO) Ochoa Stanford [id number] Ochoa Stanford 03/29/2024 1 [employer] (MEDICARE REPLACEMENT/ ADVANTAGE - PPO) Ochoa Stanford [id number] Ochoa Stanford Notes Date Note Type Note Provider Name and Address Organization Details Recorded Time 09/28/2023 text/html Ochoa is a 83 year old male who returns for follow-up visit. He just returned from [place] for the winter. He has difficult splitting the spironolactone tablets. He is limited by his lower back pain. He rides his bike for 30 minutes every other day with no chest pain or shortness of breath but can get some shortness of breath with heavier exertion which he attributes to COPD which has been stable in pattern. His diet is healthy for the most part. He has not required any Lasix as he is not had any significant swelling. His is compliant with his medications. He denies any side effects from their medications. He denies any chest pain paroxysmal nocturnal dyspnea, orthopnea, presyncope, syncope or palpitations Calin Belle MD Attn: [address] [place], [address], [facility] [place] 09/28/2023 14:38:25 03/29/2024 text/html Ochoa is a 84y ear old male who returns for follow-up visit. He is leaving to [place] for the winter on 04/08/2024. He is limited by his lower back pain. He rides his stationary bike for 30 minutes every other day with no chest pain or shortness of breath but can get some shortness of breath with heavier exertion which he attributes to COPD which has been stable in pattern and sems to be more noticeable in the hot and humid weather. His diet is healthy for the most part and his weight is down 2 pounds since his last visit about 6 months. He has had any significant swelling in his legs and has not required any Lasix. He denies any significant bleeding on plavix. He denies any falls. His is compliant with his medications. He denies any side effects from their medications. He denies any chest pain paroxysmal nocturnal dyspnea, orthopnea, presyncope, syncope or palpitations Calin Belle MD Attn: [employer] [place], [address], [facility] [place] 03/29/2024 14:39:17
== END 2024-09-26 11:10 | disposition home or self-care (01) ==
LOC: ANHLAB 11:11
PROVIDERS: Visit Provider Internal Medicine Interventional Cardiology
DX: E78.00 Pure hypercholesterolemia, unspecified (principal); I10 Essential (primary) hypertension; Z79.02 Long term (current) use of antithrombotics/antiplatelets
CPT/HCPCS: 36415; 80053; 80061; 85027

== ENCOUNTER 2025-01-11 10:21 | Outpatient (CLI) | payer MEDICARE, SELFPAY ==
[2025-01-11 10:45] LABS: Hematocrit 35.3 % (42.0-52.0); Hemoglobin 11.4 g/dL (14.0-18.0); Mean Corpuscular HGB Conc 32.3 g/dl (32-36); Mean Corpuscular Hemoglobin 34.9 pg (26-34); Mean Corpuscular Volume 108.0 fl (80-100); Platelet Count Result 131 k/mm3 (150-375); Red Blood Count 3.27 M/mm3 (4.6-6.20); White Blood Count 6.4 K/mm3 (4.5-10.0)
--- OUTSIDE RECORDS SUMMARY | 2025-01-11 10:56 | XMS_ITS | Clinical Summary ---
Author Organization [facility] Address [address] [place] [address] Care Team Providers Care Commercial Credit Officer Name Role Phone Hai Cardoso MD Primary Care Provider + Calin Belle MD Unavailable [phone] Curt Zapien DO Unavailable [phone] Allergies Active Allergy Reactions Criticality Noted Date [...] daily 30 packet 11/04/19 23 026 Active Additional Information Patient not taking.Reported on 11/21/2024 famotidine (PEPCID) 20 mg tablet Take 1 tablet (20 mg total) by mouth 2 (two) times a day for 14 days 28 tablet 11/21/19 23 026 Active metoclopramide (REGLAN) 10 mg tabletIndications: Irritable bowel syndrome with constipation Take 1 tablet (10 mg total) by mouth 4 (four) times a day before meals and nightly 120 tablet 2 12/12/19 23 026 Active Additional Information Patient not taking.Reported on 11/21/2024 spironolactone (ALDACTONE) 25 mg tabletIndications: Essential hypertension,Bilat [...] daily 180 tablet 3 07/16/19 24 Active tamsulosin (FLOMAX) 0.4 mg extended release capsuleIndications :benign prostatic hyperplasia with lower urinary tract sx Take 2 capsules (0.8 mg total) by mouth daily 180 capsule 3 03/25/20 24 025 Active levothyroxine (SYNTHROID) 150 mcg tabletIndications: Postablative hypothyroidism Take 1 tablet (150 mcg total) by mouth internal sales engineer before breakfast 90 tablet 3 03/25/20 24 025 Active ipratropium-albute roL (DUO-NEB) 0.5-2.5 mg/3 mL [...] day 10.7 each 11 08/26/19 25 Active albuterol HFA (PROVENTIL HFA,VENTOLIN HFA,PROAIR HFA) 90 mcg/actuation inhalerIndications :Simple chronic bronchitis (HCC) INHALE 2 PUFFS BY MOUTH EVERY 6 HOURS NEEDED FOR WHEEZE 20.1 each 1 11/18/19 25 Active Active Problems Problem Noted Date [...] (03/31/2022): Added automatically from request for surgery [id number] Assessment & Plan (10/10/2022 12:26 PM CDT): [...] p.r.n. if the varicosities becomes symptomatic. On roasterman clopidogrel therapy 03/26/2022 Peptic ulcer disease 01/29/2022 Assessment & Plan (10/10/2022 12:26 PM CDT): - uncontrolled sx - increase protonix to 40mg bid to see if sx will improve - if no improvement rec pt f/u with GI Assessment & Plan (01/29/2022 1:42 PM CDT): EGD results from [place] in June 2021 consistent with gastric ulcers, [...] noted on EGD in June 2021 in [place]. Patient was just recently started on pantoprazole [...] in June of 2021 was unremarkable in [place], records reviewed. Patient is taking Benefiber, MiraLax, [...] loss Assessment & Plan (04/16/2022 10:46 AM INSTRUCTOR WARPER): - Reviewed with the patient BMI, blood pressure, diet, exercise, and encouraged healthy lifestyle choices. - Screened for high risk behaviors, diet and exercise habits, and symptoms of depression. - reviewed screening labs - encouraged regular exercise Assessment & Plan (04/19/2021 2:05 PM INSTRUCTOR WARPER): - Reviewed with the patient BMI, blood [...] Patient was supposed to follow-up with his learning and development director as advised to him and his but [...] medication Assessment & Plan (04/16/2022 10:45 AM INSTRUCTOR WARPER): - stable - continue current medication Assessment & Plan (04/19/2021 2:04 PM INSTRUCTOR WARPER): - stable - continue current medication Assessment & Plan (11/06/2020 3:00 PM CDT): - stable - continue flomax Chronic bilateral low back pain without sciatica 11/06/2020 Assessment & Plan (04/07/2023 2:59 PM CDT): - stable - continue current medication Assessment & Plan (04/19/2021 2:04 PM INSTRUCTOR WARPER): - stable - continue current medication - [...] lab Assessment & Plan (04/16/2022 10:45 AM INSTRUCTOR WARPER): - stable - continue current medication Assessment & Plan (04/19/2021 2:04 PM INSTRUCTOR WARPER): - stable - continue current medication Assessment [...] 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 02/26/2016 Overview [...] medication Assessment & Plan (04/16/2022 10:45 AM INSTRUCTOR WARPER): - stable - continue current medication Assessment & Plan (04/19/2021 2:04 PM INSTRUCTOR WARPER): - stable - continue current medication Assessment [...] medication Assessment & Plan (04/16/2022 10:45 AM INSTRUCTOR WARPER): - stable - continue current medication Assessment & Plan (04/19/2021 2:04 PM INSTRUCTOR WARPER): - stable - continue current medication Essential [...] medication Assessment & Plan (04/16/2022 10:45 AM INSTRUCTOR WARPER): - stable - continue current medication Assessment & Plan (01/08/2022 3:25 PM CDT): - stable - continue current medication Assessment & Plan (04/19/2021 2:04 PM INSTRUCTOR WARPER): - stable - continue current medication Assessment [...] medication Assessment & Plan (04/16/2022 10:45 AM INSTRUCTOR WARPER): - stable - continue current medication Assessment & Plan (01/08/2022 3:25 PM CDT): - stable - continue current medication Assessment & Plan (04/19/2021 2:04 PM INSTRUCTOR WARPER): - stable - continue current medication Assessment [...] 04/16/2022 Assessment & Plan (04/19/2021 2:18 PM INSTRUCTOR WARPER): Ceruminosis is noted. Wax is removed by syringing. Instructions for home care to prevent wax buildup are given. Weakness of both lower extremities 03/22/2020 03/23/2024 Bloating 03/09/2020 03/10/2023 Overview (04/01/2021): Patient s/p large weight loss and large diastasis recti. States he would like to see a salvage winder and inspector for his abdominal complaints of constipation, bloating, and some diarrhea on occasional. Ochoa Beckford MD 03/09/2020 12:[facility]. Beckford' engineering secretary, Seng: [phone] Beeper: [phone] Patient s/p large weight loss and large diastasis recti. States he would like to see a salvage winder and inspector for his abdominal complaints of constipation, bloating, and some diarrhea on occasional. Ochoa Beckford MD 03/09/2020 12:25 PM [facility] Dr. Beckford' engineering secretary, Seng: [phone] Beeper: [phone] Ventral hernia 01/30/2020 03/23/2024 Assessment & Plan [...] Encounters Date Type Department Care Team Description 12/23/2024 1:16 PM CDT - 12/23/2024 11:59 PM CDT Hospital Encounter [facility] Office Bldg 1 Breast [facility] [address] [place] [address] [address] [place] [address] Breast pain Discharge Disposition: Discharge to home or self care 12/23/2024 1:00 PM CDT Lab [facility] Building [address] [place] [address] Postablative hypothyroidism; Essential hypertension 12/23/2024 Results Follow-Up [facility] [address] [place] [address] [address] [place] [address] Hai Cardoso MD Thyroid Function Henderson, Comprehensive metabolic panel, eGFR, Diagnostic Mammogram Bilateral W Anirudh 11/29/2024 Telephone [facility] [address] [place] [address] [address] [place] [address] Hai Cardoso MD Medical Question/Miscellaneou s 11/21/2024 1:45 PM CDT Office Visit [facility] [address] [place] [address] [address] [place] [address] Hai Cardoso MD Encounter for preventive health examination (Primary Dx); Essential hypertension; Dyslipidemia; Coronary artery disease of bypass graft of [place] heart with stable angina pectoris; Simple chronic bronchitis (HCC); Diastolic dysfunction; Postablative hypothyroidism; Benign prostatic hyperplasia with nocturia; Breast pain from Last 3 Months Immunizations Immunization Administration Dates Next Due COVID-19 mRNA (Anturis) 0.3 m L (30 mcg) vaccine (12 years and up) 03/03/2024 Influenza Virus Vaccine Trivalent Mdv 03/03/2024 Influenza, Quad, Adjuvantate d, Intramuscular 03/13/2023,03/21/2022 Influenza, Quadrivalent, Hig h Dose, Preservative Free, Intrr 04/19/2021,01/21/2020 Influenza, Trivalent, High D ose, Split, Preservative Free, Intramuscular 04/12/2019,05/10/2018,05/29/2014,05/17 Influenza, Trivalent, IM (MDV) 06/09/2012 Influenza, Unspecified 03/13/2023 Pfizer SARS-CoV-2 Monovalent Vaccination (12+ Yrs) PURPLE 03/29/2021,08/14/2020,07/24/2020 Pfizer Sars-Cov-2 Bivalent V accination (12+ YRS) 03/13/2023 Pneumococcal Conjugate PCV 13 05/10/2018 Pneumococcal Polysaccharide PPV23 05/08/2019 RSV Vaccine, Pref, Recombina nt, Subunit, Adjuvanted, PF, IM (Arexvy) 08/17/2023 ZOSTER LIVE 05/17/2013 Surgical History Surgery Date Site/Laterality Comments THYROID SURGERY HEART SURGERY COLONOSCOPY ESOPHAGOGASTRODUODENOSCOPY BLEPHAROPLASTY Bilateral Medical History Medical History Date Comments COPD (chronic obstructive pulmonary disease) HTN (hypertension) LVH (left ventricular hypertrophy) Vitamin [...] Former Cigarettes 1.5 30 1 949 - 1979 Smokeless Tobacco: Never Tobacco Cessation:Counseling Given: Not [...] points, staff should administer the PHQ-9) 0 11/21/2024 PRAPARE - Transportation Answer Date Re corded [...] No 11/05/2022 Personal Safety Answer Date Recorded Have you ever been in or are you currently in a harmful physical or emotional relationship or is someone making you feel afraid or unsafe? 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 Not on file Not on file Not on file Obstetrics History Last Filed Vital Signs Vital Sign Reading Time Taken Comments Blood Pressure 108/66 11/21/2024 1:49 PM CDT Pulse 66 11/21/2024 1:49 PM CDT Temperature 36.3 C (97.4 F) 11/21/2024 1:49 PM CDT Respiratory Rate 16 11/21/2024 1:49 PM CDT Oxygen Saturation 92% 11/21/2024 1:49 PM CDT Inhaled Oxygen Concentration - - Weight 68 kg (150 lb) 12/23/2024 2:16 PM CDT Height 170.2 cm (5' 7) 12/23/2024 2:16 PM CDT Body Mass Index 23.49 12/23/2024 2:16 PM CDT Plan of Treatment Health Maintenance Due Date Last Done Comments DTaP/Tdap/Td Vaccine (1 - Tdap) 01/07/1951 Hepatitis B Screening 1958 Zoster Vaccine (2 of 3) 07/12/2013 05/17/2013 Covid-19 Vaccine (7 - 2023-2 5 season) 2024 03/03/2024, 03/13/2023, 03/13/2023, Additional history exists Influenza Vaccine (#1) 2025 , 03/13/2023, 03/13/2023, Additional history exists Depression Screening 11/21/2025 11/21/2024, 03/25/2024, 04/07/2023, Additional history exists Fall Risk Assessment 11/21/2025 11/21/2024, 04/07/2023, 11/02/2022, Additional history exists Well Visit 65+ 11/21/2025 11/21/2024, 03/08, 04/07/2023, Additional history exists Pneumococcal vaccine 65+ Completed 05/08/2019, 08/2017 Medical Devices Implanted Type Area Court Transcriber Device Identifier Shelf Expiration Date Model / Serial / Lot Stents Left: Heart Procedures Procedure Name Priority Date/Time Associated Diagnosis Comments DIAGNOSTIC MAMMOGRAM BILATERAL W ANIRUDH Schedule Routine, Read Routine (OP Routine) 12/23/2024 2:14 PM CDT Breast pain EGFR Routine 12/23/2024 1:09 PM CDT Essential hypertension COMPREHENSIVE METABOLIC PANEL Routine 12/23/2024 1:09 PM CDT Essential hypertension THYROID FUNCTION CASCADE Routine 12/23/2024 1:09 PM CDT Postablative hypothyroidism from Last 3 Months Results * Diagnostic Mammogram Bilateral W Anirudh (12/23/2024 2:14 PM CDT) Anatomical Region Laterality Modality Breast Bilateral Mammography 12/23/2024 2:30 PM CDT Impressions 12/23/2024 2:30 PM CDT No imaging findings to suggest malignancy are seen. The patient may return to screening mammography as per ACR guidelines. OVERALL FINAL ASSESSMENT: BI-RADS Category 2: Benign. Electronically signed by: Meghna Johns M.D. Narrative 12/23/2024 2:30 PM CDT EXAMINATION: BILATERAL DIGITAL DIAGNOSTIC MAMMOGRAM INCLUDING CAD AND BILATERAL DIGITAL BREAST TOMOSYNTHESIS HISTORY: Left-sided palpable abnormality and tenderness. Pain. Previous similar findings on the right have improved or resolved. COMPARISON: None TECHNIQUE: Full field digital mammographic views of BOTH breasts were performed, including computer aided detection (CAD) and BILATERAL digital breast tomosynthesis (DBT). BREAST PARENCHYMAL COMPOSITION: There are scattered areas of fibroglandular density. The findings are consistent with gynecomastia, fairly symmetric, slightly more prominent on the left. MAMMOGRAM FINDINGS: There are no suspicious masses. No suspicious calcifications are seen. There is no unexplained architectural distortion. There is no skin thickening seen. There are no mammographically abnormal lymph nodes seen in the axillae or elsewhere. us Hai Cardoso MD IMG MAMMO PROCEDURES Fin al Result * eGFR (12/23/2024 1:09 PM CDT) eGFR 75 >=60 mL/min/1. 73 m2 Comment: Interpretive Data Reference Interval Normal >/= 90 mL/min/1.73m2 Mildly decreased* 60 - 89 mL/min/1.73m2 Mildly to moderately decreased 45 - 59 mL/min/1.73m2 Moderately to severely decreased 30 - 44 mL/min/1.73m2 Severely decreased 15 - 29 mL/min/1.73m2 Kidney Failure < 15 mL/min/1.73m2 *Relative to young adult level Estimated glomerular filtration rate is determined by the 2020 CKD-EPI equation recommended by the National Kidney Foundation (A Unifying Approach to GFR Estimation: Recommendations of the NKF-ASK Task Force on Reassessing the Inclusion of Race in Diagnosing Kidney Disease, JASN 2020). The CKD-EPI equation should not be used for patients with unstable renal function and has not been validated in children and those over 70. Current interpretive data was last reviewed 2021. Testing performed by: [facility], [address] [place] [address]., [address] Blood 12/23/2024 1:09 PM CDT 12/23/2024 3:59 PM CDT Hai Cardoso MD LAB BLOOD ORDERABLES Fin al Result Performing Organization Address [facility] de Phone Number [address] [address] * Thyroid Function Henderson (12/23/2024 1:09 PM CDT) TSH 0.31 0.30 - 4.20 mcIUnit/mL Comment:Testing performed by : [address] [address] Blood 12/23/2024 1:09 PM CDT 12/23/2024 3:59 PM CDT Hai Cardoso MD LAB BLOOD ORDERABLES Fin al Result Performing Organization Address [facility] de Phone Number [address] [address] * Comprehensive metabolic panel (12/23/2024 1:09 PM CDT) Pathologist [facility] Sodium 139 135 - 145 mmol/L Comment:Testing performed by : [address] [address] Potassium, pl 4.3 3.3 - 4.9 mmol/L DAT Comment:Testing performed by : [address] [address] Chloride 103 97 - 110 mmol/L DAT Comment:Testing performed by : [address] [address] CO2 27 22 - 32 mmol/L DAT Comment:Testing performed by : [address] [address] Anion gap 9 2 - 15 mmol/L DAT Comment:Testing performed by : [address] [address] BUN 20 6 - 25 mg/dL DAT Comment:Testing performed by : [address] [address] Creatinine 1.00 0.80 - 1.30 mg/dL DAT Comment:Testing performed by : [address] [address] Glucose 80 70 - 199 mg/dL DAT Comment: Interpretive Data Fasting glucose >/= 126 mg/dl is diagnostic for diabetes. Fasting is defined as no caloric intake for at least 8 hours. Fasting glucose between 100 mg/dl to 125 mg/dl is diagnostic of prediabetes. In a patient with classic symptoms of hyperglycemia or hyperglycemic crisis, a random glucose >/= 200 mg/dl is diagnostic for diabetes. In the absence of unequivocal hyperglycemia, results should be confirmed by repeat testing. The classification and Diagnosis of Diabetes Diabetes Care 202; 46: S19-S40. Current interpretive data was last revised 2022. Testing performed by: [address] [address] Calcium 9.1 8.5 - 10.3 mg/dL DAT Comment:Testing performed by : [address] [address] Bilirubin, total 0.8 0.1 - 1.2 mg/dL DAT Comment:Testing performed by : [address] [address] Protein, pl 6.8 6.5 - 8.5 g/dL DAT Comment:Testing performed by : [address] [address] Albumin 4.1 3.5 - 5.0 g/dL DTA Comment:Testing performed by : [address] [address] Alk phos 54 40 - 130 Units/L DAT Comment:Testing performed by : [address] [address] ALT 7 7 - 55 Units/L DAT Comment:Testing performed by : [address] [address] AST 17 10 - 50 Units/L DAT Comment:Testing performed by : [address] [address] Blood 12/23/2024 1:09 PM CDT 12/23/2024 3:59 PM CDT us Hai Cardoso MD LAB BLOOD ORDERABLES Fin al Result Performing Organization Address City/State/ZIP Co ma Phone Number [facility] [address] [facility] Department [place] [address] from Last 3 Months Insurance [employer] CHOICE MEDICARE PPO Advance Directives For more information, please contact: [phone] * Full Code (Latest Code Status on File) Date Activated Date Inactivated Comments 10/31/2022 5:27 AM 11/03/2022 5:10 PM * Full Code Date Activated Date Inactivated Comments 04/15/2022 12:09 PM 04/15/2022 9:27 PM Care Teams Commercial Credit Officer Relationship Specialty Start Date End Date Hai Cardoso MD [address] [place] [address] PCP - General Family Medicine 01/27/19 Calin Belle MD [address] [place] [id number] Consulting Physician Interventional Cardiology 11/28/20 Curt Zapien DO [address] [place] [address] MEDICAL ONCOLOGY, [address] [phone] Medical Oncologist/Precision Lens Polisher Hematology and Oncology 10/06/22
--- OUTSIDE RECORDS SUMMARY | 2025-01-11 10:56 | XMS_ITS | Encounter Summary ---
Author Organization [facility] Address [address] [facility] [place] [place] [address] Care Team Providers Care Manager Client Service Name Role Phone Hai Cardoso MD Primary Care Provider + Encounter Details Date Type Department Care Team (Late st Contact Info) Description 12/23/2022 Lab Requisition [facility] - DermPath Lab [address] [facility] [place] [address] Toy Ambrose MD [facility] [place], [place] [id number] Social History Tobacco Use Types Packs/Day Years Used Date Smoking Tobacco: Never Smokeless Tobacco: Never Alcohol Use Standard Drinks/Week Comments Not Currently 0 (1 standard drink = 0.6 oz pur e alcohol) Sex and Gender Information Value Date Recorded Sex Assigned at Not on file Legal Sex Male 5:06 AM INFORMATION DEVELOPER Gender Identity Not on file Sexual Orientation Not on file documented as of this encounter Plan of Treatment Not on file documented as of this encounter Procedures Procedure Name Priority Date/Time Associated Diagnosis Comments DERMATOPATHOLOGY Routine 12/23/2022 12:0 0 AM CDT documented in this encounter Results * DERMATOPATHOLOGY (12/23/2022 12:00 AM CDT) Case Report Dermatopathology Report Case: [id number] Authorizing Provider: Toy Ambrose MD Collected: 12/23/2022 12:00 AM Ordering Location: [facility] DermPath Lab Received: 12/23/2022 04:10 PM Pathologist: Jesica Dowell MD Specimens: A) - Skin, right lat. upper arm B) - Skin, right axilla 2:10 PM CDT DERMATOPATHOLOGY LABORATORY Final Diagnosis Specimen A. SKIN, right lat. upper arm: NEUROFIBROMA (D36.10) NOT PRESENT AT SAMPLED MARGIN Specimen B. SKIN, right axilla: SEBORRHEIC KERATOSIS (L82.1) PRESENT AT MARGIN (see microscopic description) 2:10 PM CDT DERMATOPATHOLOGY LABORATORY at 1410 CDT Clinical History A-B: polyp Check margin 2:10 PM CDT DERMATOPATHOLOGY LABORATORY Gross Description Specimen A: Received is one formalin filled container labeled with the patient's name and designated right lat. upper arm. The specimen consists of a 68x05y8 and 4x4x2 mm piece of skin. The [...] determined by the Dermatopathology Laboratory at [facility], directed by Dr. Shiva Dowell. These tests need not be, and therefore are not, approved by the [place] Food and Drug Administration. The tests are used for clinical purposes. Billing Codes Specimen Charges Stain Charges 40872 48575 1 1 3 2:10 PM CDT DERMATOPATHOLOGY LABORATORY Embedded Images 3 2:10 PM CDT DERMATOPATHOLOGY LABORATORY Pathology/Cytology TISSUE SPECIMEN FROM SKIN / Unknown 12/23/2022 12/23/2022 4:10 PM CDT Miscellaneous samples (specimen) TISSUE SPECIMEN FROM SKIN / Unknown 12/23/2022 12/23/2022 4:10 PM CDT Toy Ambrose MD LAB - PATHOLOGY/CYTOLOGY ORDERAB LES Final Result DERMATOPATHOLOGY LABORATORY [facility] - Department of Dermatology [facility] Specialized Medicine [address] [place] [address], [address] [phone] documented in this encounter Visit Diagnoses Not on filedocumented in this encounter Care Teams Manager Client Service Relationship Specialty Start Date End Date Hai Cardoso MD [address] [place] [address] PCP - General Family Medicine 03/05/20 documented as of this encounter
--- OUTSIDE RECORDS SUMMARY | 2025-01-11 10:56 | XMS_ITS | Encounter Summary ---
Author Organization [facility] Care Team Providers Care Latin Professor Name Role Phone Hai Cardoso MD Primary Care Provider + Calin Belle MD Unavailable [phone] Curt Zapien DO Unavailable [phone] Thi Lin RN Unavailable Encounter Details Date Type Department Care Team (Latest Contact Info) Description 08/12/2016 Orders Only [facility]INCON[facility] ProviderNeto MD [address] [place] [address] Social History Tobacco Use Types Packs/Day Years Used Date Smoking Tobacco: Never Assessed Sex and Gender Information Value Date Recorded Sex Assigned at Not on file Legal Sex Male 8:08 PM CARDER BLANKETS Gender Identity Male 12/25/2022 1:09 PM CDT Sexual Orientation Not on file documented as of this encounter Plan of Treatment Not on file documented as of this encounter Procedures Procedure Name Priority Date/Time Associated Diagnosis Comments PROCEDURE - RESULT 08/13/2016 12 :00 AM CARDER BLANKETS documented in this encounter Results * PROCEDURE - RESULT (08/13/2016 12:00 AM CARDER BLANKETS) Narrative 08/13/2016 12:00 AM CARDER BLANKETS Ordered by an unspecified provider. Historical Provider Final Res ult documented in this encounter Visit Diagnoses Not on filedocumented in this encounter Additional Health Concerns Infection Onset Date Last Indicated Resolved Time COVID: Suspected 10/30/2022 10/30/2022 10/31/2022 12:46 AM CDT documented as of this encounter Care Teams Latin Professor Relationship Specialty Start Date End Date Hai Cardoso MD [address] [place] [id number] PCP - General Family Medicine 01/27/19 Calin Belle MD [facility] [address] [phone] Consulting Physician Interventional Cardiology 11/28/20 Curt Zapien DO [address] [facility] MEDICAL ONCOLOGY, [address] [phone] Medical Oncologist/Office Supervisor Hematology and Oncology 10/06/22 Thi Lin RN [address] [place] [address] [address] [place] [address] Supervisor Education 11/05/22 12/30/22 documented as of this encounter
--- OUTSIDE RECORDS SUMMARY | 2025-01-11 10:56 | XMS_ITS | Patient Health Record ---
Author Organization [facility] Address [address] [address] Care Team Providers Care Escalator Operator Name Role Phone Jagjit Nye Unavailable [phone] Allergies No Known Allergies Reason For Referral No Information Medications Medication SIG (Take, Route, Frequency, Duration) Notes Start Date End Date Status Flomax 0.4 MG Capsule Oral once a day 05/20/2017 Active Crestor 40 MG Tablet Oral once a day 05/20/2017 Active Linzess 290 MCG Capsule once a day Oral once a day 12/13/2014 Active Aspirin Adult Low Strength 81 MG Tablet Delayed Release Oral take as directed 05/20/2017 Active traMADol HCl 50 MG Tablet Oral take as directed 05/20/2017 Active Plavix 75 MG Tablet Oral once a day 05/20/2017 Active Ranexa 500 MG Tablet Extended Release 12 Hour Oral twice a day 05/20/2017 Active Isosorbide Mononitrate ER 60 MG Tablet Extended Release 24 Hour Oral once a day 05/20/2017 Active Levothyroxine Sodium 175 MCG Tablet Oral once a day 05/20/2017 Active Pantoprazole Sodium 40 MG Tablet Delayed Release once a day Oral once a day 06/17/2016 Active Spiriva HandiHaler 18 MCG Capsule Inhalation once a day 05/20/2017 Active Ranitidine HCl 150 MG Tablet once a day 30-60 prior to evening meal. Oral once a day *Reorder from [employer] for eRx and Interaction Alerts* 09/15/2016 Active Protonix 40 MG Tablet Delayed Release once a day Oral once a day 06/29/2015 Active Zetia 10 MG Tablet Oral once a day 05/20/2017 Active Losartan Potassium 50 MG Tablet Oral once a day 05/20/2017 Active Tamsulosin HCl 0.4 MG Capsule Oral take as directed 05/20/2017 Active Metoprolol Succinate ER 50 MG Tablet Extended Release 24 Hour Oral once a day 05/20/2017 Active Immunizations Vaccine Route Administration Date Status Comme nts Hep A, adult Unknown 08/06/2016 Refused Hep B, adult (2 dose schedule) Unknown 08/06/2016 Refus ed Influenza (split), seasonal, intradermal, preservative free Unknown 03/17/2014 Administered Influenza (split), seasonal, intradermal, preservative free Unknown 08/06/2016 Refused Pneumococcal conjugate PCV 13 Unknown 03/17/2011 Admini stered Pneumococcal conjugate PCV 13 Unknown 07/07/2016 Admini stered Zoster Unknown 07/07/2011 Administered Problems Problem Type SNOMED Code ICD Code Onset Dates Problem Status W/U Status Risk Notes Problem Constipation, unspecified (K59.00) 12/13/2014 Active confirmed Plan Of Treatment No Information Insurance Providers Payer Name Payer Address Payer Phone Subscriber Number Group Number Insured Name Patient Relationship to Insured Coverage Start Date Coverage End Date [employer] [facility] Choice Medicare [id number] [address] [address] [place] [address] [id number] Ochoa Stanford Self - patient is the insured
--- OUTSIDE RECORDS SUMMARY | 2025-01-11 10:56 | XMS_ITS | Encounter Summary ---
Author Organization [facility] Facility Care Team Providers Care Management Lead Name Role Phone Hai Cardoso MD Primary Care Provider + Calin Belle MD Unavailable [phone] Curt Zapien DO Unavailable [phone] Thi Lin RN Unavailable [phone] Encounter Details Date Type Department Care Team (Latest Contact Info) Description 12/25/2015 Orders Only [facility] Provider, MD Neto [address] [place] [address] Social History Tobacco Use Types Packs/Day Years Used Date Smoking Tobacco: Never Assessed Sex and Gender Information Value Date Recorded Sex Assigned at Not on file Legal Sex Male 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 Gender Identity Male 12/25/2022 1:09 PM CDT [...] documented as of this encounter Care Teams Management Lead Relationship Specialty Start Date End Date Hai Cardoso MD [address] [place] [address] PCP - General Family Medicine 01/27/19 Calin Belle MD [address] [place] [address] Consulting Physician Interventional Cardiology 11/28/20 Curt Zapien DO [address] [place] [address] MEDICAL ONCOLOGY, [address] [address] Medical Oncologist/Venetian Blind Machine Operator Hematology and Oncology 10/06/22 Thi Lin RN [address] [place] [address] [address] [place] [address] Head Of Business Development 11/05/22 12/30/22 documented as of this encounter
--- OUTSIDE RECORDS SUMMARY | 2025-01-11 10:56 | XMS_ITS | Encounter Summary ---
Author Organization [facility] Facility Care Team Providers Care Cull Grader Name Role Phone Hai Cardoso MD Primary Care Provider + Calin Belle MD Unavailable [phone] Curt Zapien DO Unavailable [phone] Thi Lin RN Unavailable [phone] Encounter Details Date Type Department Care Team (Latest Contact Info) Description 08/18/2017 Orders Only [facility] CLINCONV ProviderNeto MD [address] [place] [address] Social History Tobacco Use Types Packs/Day Years Used Date Smoking Tobacco: Never Assessed Sex and Gender Information Value Date Recorded Sex Assigned at Not on file Legal Sex Male 8:08 PM REALTIME CAPTIONER Gender Identity Male 12/25/2022 1:09 PM CDT [...] documented as of this encounter Care Teams Cull Grader Relationship Specialty Start Date End Date Hai Cardoso MD [facility] [address] PCP - General Family Medicine 01/27/19 Calin Belle MD [facility] [phone] Consulting Physician Interventional Cardiology 11/28/20 Curt Zapien DO [facility]8 [facility] MEDICAL ONCOLOGY, [address] [phone] Medical Oncologist/Health Inspector Hematology and Oncology 10/06/22 Thi Lin RN [address] [place] [address] [facility] [address] [place] [address] Photoengraving Retoucher 11/05/22 12/30/22 documented as of this encounter
--- OUTSIDE RECORDS SUMMARY | 2025-01-11 10:56 | XMS_ITS | Encounter Summary ---
Author Organization [facility] Facility Care Team Providers Care Pump Stitcher Name Role Phone Hai Cardoso MD Primary Care Provider + Calin Belle MD Unavailable [phone] Curt Zapien DO Unavailable [phone] Thi Lin RN Unavailable Encounter Details Date Type Department Care Team (Latest Contact Info) Description 08/14/2016 Orders Only [facility] CLINCONV ProviderNeto MD [address] [place] [address] Social History Tobacco Use Types Packs/Day Years Used Date Smoking Tobacco: Never Assessed Sex and Gender Information Value Date Recorded Sex Assigned at Not on file Legal Sex Male 8:08 PM LEAK HUNTER Gender Identity Male 12/25/2022 1:09 PM CDT Sexual Orientation Not on file documented as of this encounter Plan of Treatment Not on file documented as of this encounter Procedures Procedure Name Priority Date/Time Associated Diagnosis Comments PROCEDURE - RESULT 08/08/2016 12 :00 AM LEAK HUNTER documented in this encounter Results * PROCEDURE - RESULT (08/08/2016 12:00 AM LEAK HUNTER) Narrative 08/08/2016 12:00 AM LEAK HUNTER Ordered by an unspecified provider. Historical Provider Final Res ult documented in this encounter Visit Diagnoses Not on filedocumented in this encounter Additional Health Concerns Infection Onset Date Last Indicated Resolved Time COVID: Suspected 10/30/2022 10/30/2022 10/31/2022 12:46 AM CDT documented as of this encounter Care Teams Pump Stitcher Relationship Specialty Start Date End Date Hai Cardoso MD [address] [place] [address] PCP - General Family Medicine 01/27/19 Calin Belle MD [facility] [phone] Consulting Physician Interventional Cardiology 11/28/20 Curt Zapien DO 1418 [facility] MEDICAL ONCOLOGY, [address] [phone] Medical Oncologist/Psychologist Chief Hematology and Oncology 10/06/22 Thi Lin RN [address] [place] [address] [address] [place] [address] Criminal Defense Lawyer 11/05/22 12/30/22 documented as of this encounter
--- OUTSIDE RECORDS SUMMARY | 2025-01-11 10:56 | XMS_ITS | Encounter Summary ---
Author Organization [facility] Facility Care Team Providers Care Freight Router Name Role Phone Hai Cardoso MD Primary Care Provider + Calin Belle MD Unavailable [phone] Curt Zapien DO Unavailable [phone] Thi Lin RN Unavailable Encounter Details Date Type Department Care Team (Latest Contact Info) Description 11/07/2016 Orders Only [facility]INCONV ProviderNeto MD [address] [place] [address] Social History Tobacco Use Types Packs/Day Years Used Date Smoking Tobacco: Never Assessed Sex and Gender Information Value Date Recorded Sex Assigned at Not on file Legal Sex Male 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 Gender Identity Male 12/25/2022 1:09 PM [...] documented as of this encounter Care Teams Freight Router Relationship Specialty Start Date End Date Hai Cardoso MD [facility] [address] PCP - General Family Medicine 01/27/19 Calin Belle MD [facility] [phone] Consulting Physician Interventional Cardiology 11/28/20 Curt Zapien DO [facility]8 [facility] MEDICAL ONCOLOGY, [address] [phone] Medical Oncologist/Ships Or Barges Loader Hematology and Oncology 10/06/22 Thi Lin RN [address] [place] [address] [facility] [address] [place] [address] Residential Building Inspector 11/05/22 12/30/22 documented as of this encounter
--- OUTSIDE RECORDS SUMMARY | 2025-01-11 10:56 | XMS_ITS | Encounter Summary ---
Author Organization [facility] Facility Care Team Providers Care Car Packer Name Role Phone Hai Cardoso MD Primary Care Provider + Calin Belle MD Unavailable [phone] Curt Zapien DO Unavailable [phone] Thi Lin RN Unavailable Encounter Details Date Type Department Care Team (Latest Contact Info) Description 01/15/2016 Orders Only [facility]IN[facility] ProviderNeto MD [address] [place] [address] Social History Tobacco Use Types Packs/Day Years Used Date Smoking Tobacco: Never Assessed Sex and Gender Information Value Date Recorded Sex Assigned at Not on file Legal Sex Male 8:08 PM TITLE I INSTRUCTIONAL ASSISTANT Gender Identity Male 12/25/2022 1:09 PM CDT [...] documented as of this encounter Care Teams Car Packer Relationship Specialty Start Date End Date Hai Cardoso MD [facility] [address] PCP - General Family Medicine 01/27/19 Calin Belle MD [facility] [address] Consulting Physician Interventional Cardiology 11/28/20 Curt Zapien DO 1418 [facility] MEDICAL ONCOLOGY, [address] [phone] Medical Oncologist/Director Of Event Sales Hematology and Oncology 10/06/22 Thi Lin, RN [address] [place] [address] [address] [place] [address] Racebook Writer 11/05/22 12/30/22 documented as of this encounter
--- OUTSIDE RECORDS SUMMARY | 2025-01-11 10:56 | XMS_ITS | Encounter Summary ---
Author Organization [facility] Facility Care Team Providers Care Land Mobile Radio Technician Name Role Phone Hai Cardoso MD Primary Care Provider + Calin Belle MD Unavailable [phone] Curt Zapien DO Unavailable [phone] Thi Lin RN Unavailable Encounter Details Date Type Department Care Team (Latest Contact Info) Description 08/07/2016 Orders Only [facility]IN[facility] ProviderNeto MD [address] [place] [address] Social History Tobacco Use Types Packs/Day Years Used Date Smoking Tobacco: Never Assessed Sex and Gender Information Value Date Recorded Sex Assigned at Not on file Legal Sex Male 8: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 Historical Provider Final Res ult documented in this encounter Visit Diagnoses Not on filedocumented in this encounter Additional Health Concerns Infection Onset Date Last Indicated Resolved Time COVID: Suspected 10/30/2022 10/30/2022 10/31/2022 12:46 AM CDT documented as of this encounter Care Teams Land Mobile Radio Technician Relationship Specialty Start Date End Date Hai Cardoso MD [address] [place] [address] PCP - General Family Medicine 01/27/19 Calin Belle MD [facility] [phone] Consulting Physician Interventional Cardiology 11/28/20 Curt Zapien DO 1418 [facility] MEDICAL ONCOLOGY, [address] [phone] Medical Oncologist/Janitor Hematology and Oncology 10/06/22 Thi Lin RN [address] [place] [address] [address] [place] [address] Primary Teacher 11/05/22 12/30/22 documented as of this encounter
--- OUTSIDE RECORDS SUMMARY | 2025-01-11 10:56 | XMS_ITS ---
Author Organization [facility] Address [address] [place] [address] Care Team Providers Care Seasonal Greenery Bundler Name Role Phone Hai Cardoso MD Primary Care Provider + Active Problems Problem Noted Date Diagnosed Date Pulmonary hypertension 03/22/2020 Bloating 03/09/2020 Overview (03/09/2020): Patient s/p large weight loss and large diastasis recti. States he would like to see a surgical scrub technologist for his abdominal complaints of constipation, bloating, and some diarrhea on occasional. Ochoa Beckford MD 03/09/2020 12:25 PM Dept. Of Surgery, [facility] -- Dr. Beckford' laboratory secretary, Seng: [phone] Beeper: [phone] Diastasis recti 02/24/2020 Overview (03/09/2020): 80 y/o male presents in referral regarding a uniform epigastric bulge from xyphoid to umbilicus ~4 cm wide most consistent with a diastasis recti but with a history of a significant weight loss previously and now significant redundancy. Will CT scan to evaluate. Ochoa Beckford MD 02/24/2020 10:51 AM Dept. Of Surgery, [facility] -- Dr. Beckford' laboratory secretary, Seng: [phone] Beeper: [phone] 80 y/o male presents in referral regarding [...] MD 03/09/2020 12:03 PM Dept. Of Surgery, [facility] -- Dr. Beckford' laboratory secretary, Seng: [phone] Beeper: [phone] Fatigue 01/30/2020 Overview (02/24/2020): Last Assessment & [...] States he would like to see a surgical scrub technologist for his abdominal complaints of constipation, bloating, and some diarrhea on occasional. Ochoa Beckford MD 03/09/2020 12:24 [facility]. [facility] laboratory secretary, Seng: [phone] Beeper: [phone] Ventral hernia 01/30/2020 03/09/2020 Overview (02/24/2020): Last Assessment & Plan: - ref to gen surg for eval
--- OUTSIDE RECORDS SUMMARY | 2025-01-11 10:56 | XMS_ITS | Clinical Summary ---
Author Organization [facility] [place] [facility] Address [address] [place] [address] Care Team Providers Care Assistant Professor Of Life Sciences Name Role Phone Hai Cardoso MD Primary Care Provider [phone] Allergies No known active allergies Medications clopidogrel [...] 3:11 AM CDT Height 172.7 cm (5' 8) 10/22/2020 10:0 0 PM CDT Body Mass [...] 2:12 AM 10/25/2020 6:38 PM Care Teams Assistant Professor Of Life Sciences Relationship Specialty Start Date End Date Hai Cardoso MD PCP - General FAMILY PRACTICE 10/22/20
--- OUTSIDE RECORDS SUMMARY | 2025-01-11 10:56 | XMS_ITS | Encounter Summary ---
Author Organization [facility] Address [address] [facility] [place] [address] Care Team Providers Care Kick Press Setter Name Role Phone Hai Cardoso MD Primary Care Provider + Encounter Details Date Type Department Care Team (Late st Contact Info) Description 03/03/2024 Lab Requisition [facility] - DermPath Lab [address] [facility] [place] [address] Toy Ambrose MD [facility] [place], [place] [phone] Social History Tobacco Use Types Packs/Day Years Used Date Smoking Tobacco: Never Smokeless Tobacco: Never Alcohol Use Standard Drinks/Week Comments Not Currently 0 (1 standard drink = 0.6 oz pur e alcohol) Sex and Gender Information Value Date Recorded Sex Assigned at Not on file Legal Sex Male 5:06 AM FIELD INSTALLER Gender Identity Not on file Sexual Orientation Not on file documented as of this encounter Plan of Treatment Not on file documented as of this encounter Procedures Procedure Name Priority Date/Time Associated Diagnosis Comments DERMATOPATHOLOGY Routine 03/02/2024 3:33 AM CDT documented in this encounter Results * DERMATOPATHOLOGY (03/02/2024 3:33 AM CDT) Case Report Dermatopathology Report Case: [id number] Authorizing Provider: Toy Ambrose MD Collected: 03/02/2024 03:33 AM Ordering Location: [facility] - Received: 03/03/2024 04:14 PM DermPath Lab Pathologist: Leah Day MD Specimen: Skin, left paranasal 11:17 AM CDT DERMATOPATHOLOGY LABORATORY Final Diagnosis Specimen A. SKIN, left paranasal: SEBORRHEIC KERATOSIS, IRRITATED (L82.0) 11:17 AM CDT DERMATOPATHOLOGY LABORATORY at 1117 CDT Clinical History R/o BCC 11:17 AM CDT [...] characteristic determined by the Dermatopathology Laboratory at [facility], directed by Dr. Shiva Dowell. These tests need not be, and therefore are not, approved by the [place] Food and Drug Administration. The tests are used for clinical purposes. Billing Codes Specimen Charges Stain Charges 75693 1 11:17 AM CDT DERMATOPATHOLOGY LABORATORY Embedded Images 11:17 AM CDT DERMATOPATHOLOGY LABORATORY Pathology/Cytolo gy TISSUE SPECIMEN FROM SKIN / Unknown 03/02/2024 3:33 AM CDT 03/03/2024 4:14 PM CDT us Toy Ambrose MD LAB - PATHOLOGY/CYTOLOGY ORDERAB LES Final Result DERMATOPATHOLOGY LABORATORY [facility] - Department of Dermatology [facility] Medicine [address] [place] [address], [address] [phone] documented in this encounter Visit Diagnoses Not on filedocumented in this encounter Care Teams Kick Press Setter Relationship Specialty Start Date End Date Hai Cardoso MD [address] [place] [address] PCP - General Family Medicine 03/05/20 documented as of this encounter
--- OUTSIDE RECORDS SUMMARY | 2025-01-11 10:56 | XMS_ITS | Encounter Summary ---
Author Organization [facility] Facility Care Team Providers Care Database Admin Name Role Phone Hai Cardoso MD Primary Care Provider + Calin Belle MD Unavailable [phone] Curt Zapien DO Unavailable [phone] Thi Lin RN Unavailable [phone] Encounter Details Date Type Department Care Team (Latest Contact Info) Description 02/18/2017 Orders Only [facility]INCON[facility] ProviderNeto MD [address] [place] [address] Social History Tobacco Use Types Packs/Day Years Used Date Smoking Tobacco: Never Assessed Sex and Gender Information Value Date Recorded Sex Assigned at Not on file Legal Sex Male 8:08 PM TEST DESK OPERATOR Gender Identity Male 12/25/2022 1:09 PM [...] documented as of this encounter Care Teams Database Admin Relationship Specialty Start Date End Date Hai Cardoso MD [facility] [address] PCP - General Family Medicine 01/27/19 Calin Belle MD [facility] [phone] Consulting Physician Interventional Cardiology 11/28/20 Curt Zapien DO [facility]8 [facility] MEDICAL ONCOLOGY, [address] [phone] Medical Oncologist/Plastic Surgery Manager Hematology and Oncology 10/06/22 Thi Lin RN [address] [place] [address] [facility] [address] [place] [address] Director Nicu 11/05/22 12/30/22 documented as of this encounter
--- OUTSIDE RECORDS SUMMARY | 2025-01-11 10:56 | XMS_ITS | Clinical Summary ---
Author Organization [facility] Address [address] [place] [address] Care Team Providers Care Pug Machine Operator Name Role Phone Hai Cardoso MD Primary Care Provider + Source Comments [facility],non-owned Affiliates and Associated Physician Practices is amultiple site organization consisting of ambulatory clinics and hospital sitesin [place] and [place]. This disclosure is being madepursuant to the Care Everywhere program and may not contain all information available regarding this patient. Last updated 18.[facility] Allergies Active Allergy Reactions Criticality Noted Date [...] MINUTES NEEDED FOR CHEST PAIN 1 Active [place]-3 1000 MG 1,200 mg Acti ve Pyridoxine [...] States he would like to see a environmental adviser for his abdominal complaints of constipation, bloating, and some diarrhea on occasional. Ochoa Beckford MD 03/09/2020 12:25 PM Dept. Of Surgery, [facility] -- Dr. Beckford' bilingual secretary, Seng: [phone] Beeper: [phone] Diastasis recti 02/24/2020 Overview (03/09/2020): 80 y/o male presents in referral regarding a uniform epigastric bulge from xyphoid to umbilicus ~4 cm wide most consistent with a diastasis recti but with a history of a significant weight loss previously and now significant redundancy. Will CT scan to evaluate. Ochoa Beckford MD 02/24/2020 10:51 AM Dept. Of Surgery, [facility] -- Dr. Beckford' bilingual secretary, Seng: [phone] Beeper: [phone] 80 y/o male presents in referral regarding [...] 03/09/2020 12:03 PM Dept. Of Surgery, [facility] -- Dr. Beckford' bilingual secretary, Seng: [phone] Beeper: [phone] Fatigue 01/30/2020 Overview (02/24/2020): Last Assessment & [...] States he would like to see a environmental adviser for his abdominal complaints of constipation, bloating, and some diarrhea on occasional. Ochoa Beckford MD 03/09/2020 12:24 [facility] bilingual secretary, Seng: [phone] Beeper: [phone] Ventral hernia 01/30/2020 03/09/2020 Overview (02/24/2020): Last [...] on file Legal Sex Male 5:06 AM HOME STAGER Gender Identity Not on file Sexual Orientation [...] 10:38 AM CDT Height 172.7 cm (5' 8) 01/29/2021 10:38 AM CDT Body Mass Index [...] MEDICARE AWV CALENDAR YEAR 2024 INFLUENZA VACCINE (#1) 2025 , 04/12/2019, 05/10/2018, Additional history exists HEPATITIS B [...] MEDICARE ADV HMO & PPO Care Teams Pug Machine Operator Relationship Specialty Start Date End Date Hai Cardoso MD [address] [address] PCP - General Family Medicine 03/05/20
--- OUTSIDE RECORDS SUMMARY | 2025-01-11 10:56 | XMS_ITS | Encounter Summary ---
Author Organization [facility] Healthcare Address [address] [place] [address] Care Team Providers Care Control Officer Name Role Phone Hai Cardoso MD Primary Care Provider + Calin Belle MD Unavailable [phone] Curt Zapien DO Unavailable [phone] Encounter Details Date Type Department Care Team (Latest Contact Info) Description 12/23/2024 Results Follow-Up [facility] Primary Care [address] [phone] Hai Cardoso MD [address] [place] [id number] Thyroid Function [place], Comprehensive metabolic panel, eGFR, Diagnostic Mammogram Bilateral W Anirudh Social History Tobacco Use Types Packs/Day Years Used Date Smoking Tobacco: Former Cigarettes 1.5 30 1 949 - 1978 Smokeless Tobacco: Never Alcohol Use Standard Drinks/Week Comments Never 0 [...] place to sleep or slept in a long term (including now)? No 11/05/2022 Personal Safety Answer Date Recorded Have you ever been in or are you currently in a harmful physical or emotional relationship or is someone making you feel afraid or unsafe? 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 No sign of masses under the nipple. * Result Encounter Note - Hai Cardoso MD - 12/23/2024 4:43 PM CDT Your kidney function, liver function and electrolytes are normal. Your thyroid hormone level is normal. Continue your levothyroxine at the current dose. documented in this encounter Plan of Treatment Not on file documented as of this encounter Visit Diagnoses Not on filedocumented in this encounter Care Teams Control Officer Relationship Specialty Start Date End Date Hai Cardoso MD [address] [place] [id number] PCP - General Family Medicine 01/27/19 Calin Belle MD [address] [place] [address] [id number] Consulting Physician Interventional Cardiology 11/28/20 Curt Zapien DO [address] [place] [address] MEDICAL ONCOLOGY, [address] [id number] Medical Oncologist/Chart Clerk Hematology and Oncology 10/06/22 documented as of this encounter
[2025-01-11 11:05] LABS: Alanine Aminotransferase 13 U/L (6-50); Albumin Level 3.8 g/dL (3.5-5.1); Alkaline Phosphatase 62 U/L (38-126); Anion Gap 6 mmol/L (4-12); Aspartate Amino Transferase 25 U/L (17-59); Bilirubin,Total 0.8 mg/dL (0.2-1.3); Blood Urea Nitrogen 22 mg/dL (9-20); Calcium 9.4 mg/dL (8.4-10.2); Carbon Dioxide 26 mmol/L (22-30); Chloride 104 mmol/L (98-107); Estimated Glomerular Filt Rate > 60; Glucose 97 mg/dL (65-110); Potassium 4.2 mmol/L (3.4-5.0); Sodium 136 mmol/L (137-145); Total Protein 6.7 g/dL (6.3-8.2)
[2025-01-11 14:44] LABS: Thyroid Stimulating Hormone Reflex 0.410 uIU/mL (0.465-4.68)
[2025-01-11 16:21] LABS: Free T4 Free Thyroxine Reflex 1.84 ng/dL (0.78-2.19)
[2025-01-11 17:27] LABS: Total Triiodothyronine (T3) 0.87 NG/ML (0.82-1.58)
== END 2025-01-11 10:22 | disposition home or self-care (01) ==
LOC: ANHLAB 10:24
PROVIDERS: Visit Provider Internal Medicine Interventional Cardiology
DX: I48.91 Unspecified atrial fibrillation (principal); Z79.01 Long term (current) use of anticoagulants
CPT/HCPCS: 36415; 80053; 84439; 84443; 84480; 85027